=== PATIENT | female | born 1940 | race Caucasian/White ===

== ENCOUNTER 2016-08-09 16:56 | Inpatient (IN) | payer MEDICARE, OTHER ==
[~2016-08-09] VITALS: Ht 167.6 cm; Wt 110.5 kg
[~2016-08-09 16:56] MED LIST: CLOP75 PO; DIAZ5TAB4 PO; DIPH25 PO; DULO60CA63 PO; FURO20TA4 PO; METO25 PO; OMEP20CA10 PO; QUET25TA PO; ROPI1TAB11 PO
[2016-08-09] MEDS ORDERED: HYDR-309 PO (18:25)
[2016-08-09] MEDS ORDERED: DULO60CA44 PO (18:29)
[2016-08-09] MEDS ORDERED: LORA10TA7 PO (18:29)
[2016-08-09] MEDS ORDERED: GABA-529 PO (18:29)
[2016-08-09] MEDS ORDERED: FLUT100B IH (18:29)
[2016-08-09] MEDS ORDERED: QUET300T2 PO (18:45)
[2016-08-09] MEDS ORDERED: MAGNESIUM CITRATE 300 ML ORAL SOLUTION PO ONE (18:45)
[2016-08-09 19:02] LABS: BASOPHILS % (AUTO) 0.2 % (0.0-2.0); EOSINOPHILS % (AUTO) 2.3 % (1.0-6.0); HEMATOCRIT 38.2 % (36-46); HEMOGLOBIN 12.3 g/dL (12.0-16.0); LYMPHOCYTES # (AUTO) 2.4 K/uL (1.0-4.8); LYMPHOCYTES % (AUTO) 22.4 % (22.0-44.0); MEAN CORPUSCULAR HEMOGLOBIN 33.6 pg (26.0-34.0); MEAN CORPUSCULAR HGB CONC 32.1 G/dL (31.0-37.0); MEAN CORPUSCULAR VOLUME 105 fL (80-100); MONOCYTES # (AUTO) 0.4 K/uL (0.1-1.0); MONOCYTES % (AUTO) 3.8 % (2.0-9.0); NEUTROPHILS # (AUTO) 7.6 K/uL (1.8-7.7); NEUTROPHILS % (AUTO) 71.3 % (40.0-70.0); PLATELET COUNT (AUTO) 181 K/uL (150-450); RED BLOOD CELL COUNT(AUTO) 3.66 MIL/uL (4.00-5.20); RED CELL DISTRIBUTION WIDTH 14.6 % (11.5-14.5); WHITE BLOOD COUNT (AUTO) 10.7 K/uL (4.5-11.0)
[2016-08-09 19:15] LABS: CALCIUM, TOTAL 8.8 mg/dL (8.8-10.5); CREATININE 3.95 mg/dL (0.60-1.30); POTASSIUM 4.5 mmol/L (3.5-5.1)
[2016-08-09 19:20] LABS: ALBUMIN 3.4 g/dL (3.4-5.0); BILIRUBIN,TOTAL 0.3 mg/dL (0.1-1.0); TOTAL PROTEIN, SERUM 7.6 g/dL (6.4-8.2)
[2016-08-09 19:25] LABS: LACTIC ACID 1.2 mmol/L (0.4-2.0)
[2016-08-09 19:29] LABS: INFLUENZA TYPE B NEGATIVE FOR TYPE B (NEGATIVE)
[2016-08-09] MEDS ORDERED: ONDANSETRON HCL 4 MG/2 ML VIAL IVP PRN (19:30)
[2016-08-09] MEDS ORDERED: 0.9% SODIUM CHLORIDE 10 ML SYRINGE IVP PRN (19:30)
[2016-08-09] MEDS ORDERED: ACETAMINOPHEN 325 MG TABLET PO PRN (19:30)
[2016-08-09 19:32] LABS: RBC MORPHOLOGY COMMENT ABNORMAL RBC MORPH
[2016-08-09] MEDS ORDERED: SODIUM CHLORIDE 0.9% 2,000 ML IV ONE (20:00)
[2016-08-09 20:51] LABS: GLUCOSE,POINT OF CARE 157 MG/DL (70-110)
[2016-08-09 21:37] VITALS: BP 116/73
[2016-08-09 23:29] VITALS: BP 108/58
[2016-08-10 04:42] VITALS: BP 116/66
[2016-08-10] MEDS ORDERED: INFLUENZA VIRUS VACCINE QVS 2016-17 (3YR+)/PF 60 MCG/0.5 ML SYRINGE IM ONE (06:00)
[2016-08-10] MEDS ORDERED: -PHARMACY VACCINE NOTE- MISC ONE ×2 (06:00)
[2016-08-10 07:22] VITALS: BP 123/64
[2016-08-10] MEDS: NYSTATIN 15 GM POWDER BOTTLE TP SCH ×3 (09:06→21:34)
[2016-08-10] MEDS: FLUTICASONE FUROATE 100 MCG/INH INHALER [14] IH SCH (09:30)
[2016-08-10] MEDS ORDERED: ROPINIRole HCL 1 MG TABLET PO SCH (09:30)
[2016-08-10] MEDS ORDERED: DIAZEPAM 5 MG TABLET PO SCH (09:30)
[2016-08-10] MEDS ORDERED: DiphenhydrAMINE HCL 25 MG CAPSULE PO SCH (09:30)
[2016-08-10] MEDS ORDERED: LORATADINE 10 MG TABLET PO SCH (09:30)
[2016-08-10] MEDS ORDERED: FUROSEMIDE 20 MG TABLET PO SCH (09:30)
[2016-08-10] MEDS ORDERED: QUEtiapine FUMARATE 300 MG TABLET PO SCH (09:30)
[2016-08-10] MEDS ORDERED: ONDANSETRON HCL 4 MG/2 ML VIAL IVP PRN (09:45)
[2016-08-10] MEDS ORDERED: 0.9% SODIUM CHLORIDE 10 ML SYRINGE IVP PRN (09:45)
[2016-08-10] MEDS ORDERED: MAGNESIUM CITRATE 300 ML ORAL SOLUTION PO ONE (09:45)
[2016-08-10] MEDS: DULoxetine HCL 60 MG CAPSULE PO SCH (10:40)
[2016-08-10] MEDS: DOCUSATE SODIUM 100 MG CAPSULE PO SCH ×2 (10:40→21:33)
[2016-08-10] MEDS: CLOPIDOGREL BISULFATE 75 MG TABLET PO SCH (10:41)
[2016-08-10] MEDS: HYDROCODONE/ACETAMINOPHEN 5-325 MG TABLET PO SCH ×2 (10:42→21:34)
[2016-08-10] MEDS: METOPROLOL TARTRATE 25 MG TABLET PO SCH (10:42)
[2016-08-10] MEDS: PANTOPRAZOLE SODIUM 40 MG/VIAL IVP SCH (10:43)
[2016-08-10 12:28] VITALS: BP 127/64
[2016-08-10] MEDS ORDERED: SODIUM CHLORIDE 0.9% 1,000 ML IV ONE (13:45)
[2016-08-10] MEDS ORDERED: GABAPENTIN 100 MG CAPSULE PO SCH (16:00)
[2016-08-10 16:09] VITALS: BP 91/59
[2016-08-10] MEDS: DEXTROSE 5%-0.45% SODIUM CHL 1,000 ML IV SCH (17:26)
[2016-08-10 19:10] LABS: APPEARANCE,URINE TURBID (CLEAR); GLUCOSE, URINE (UA) NEGATIVE (NEGATIVE); KETONES,URINE NEGATIVE (NEGATIVE); LEUKOCYTE ESTERASE ,URINE LARGE (NEGATIVE); OCCULT BLOOD,URINE MODERATE (NEGATIVE); PROTEIN,URINE POS 1+ (NEGATIVE)
[2016-08-10 19:13] LABS: ADD UA MICROSCOPIC YES
[2016-08-10 19:26] LABS: SQUAMOUS EPITHELIAL CELL,UR Moderate /LPF (None Seen)
[2016-08-10 19:35] LABS: TRANSITIONAL EPI CELLS,URINE Moderate /LPF (None Seen)
[2016-08-10 19:36] LABS: WBC,URINE >100 /HPF (0-5)
[2016-08-10 21:07] VITALS: BP 104/63
[2016-08-10] MEDS: HEPARIN SODIUM,PORCINE 5,000 UNITS/ML VIAL SQ SCH (21:32)
[2016-08-11 00:07] VITALS: BP 109/65
[2016-08-11 04:30] VITALS: BP 113/65
[2016-08-11 05:41] LABS: BASOPHILS % (AUTO) 0.5 % (0.0-2.0); EOSINOPHILS % (AUTO) 6.1 % (1.0-6.0); HEMATOCRIT 35.3 % (36-46); HEMOGLOBIN 11.3 g/dL (12.0-16.0); LYMPHOCYTES # (AUTO) 2.8 K/uL (1.0-4.8); LYMPHOCYTES % (AUTO) 35.3 % (22.0-44.0); MEAN CORPUSCULAR HEMOGLOBIN 33.8 pg (26.0-34.0); MEAN CORPUSCULAR VOLUME 106 fL (80-100); MONOCYTES # (AUTO) 0.5 K/uL (0.1-1.0); MONOCYTES % (AUTO) 5.8 % (2.0-9.0); NEUTROPHILS # (AUTO) 4.1 K/uL (1.8-7.7); NEUTROPHILS % (AUTO) 52.3 % (40.0-70.0); PLATELET COUNT (AUTO) 163 K/uL (150-450); RED BLOOD CELL COUNT(AUTO) 3.34 MIL/uL (4.00-5.20); RED CELL DISTRIBUTION WIDTH 13.9 % (11.5-14.5); WHITE BLOOD COUNT (AUTO) 7.9 K/uL (4.5-11.0)
[2016-08-11 05:54] LABS: CALCIUM, TOTAL 8.3 mg/dL (8.8-10.5); CREATININE 2.62 mg/dL (0.60-1.30); MAGNESIUM 2.3 mg/dL (1.80-2.40)
[2016-08-11 08:20] VITALS: BP 119/64
[2016-08-11] MEDS: FLUTICASONE FUROATE 100 MCG/INH INHALER [14] IH SCH (08:52)
[2016-08-11] MEDS: HYDROCODONE/ACETAMINOPHEN 5-325 MG TABLET PO SCH ×2 (08:53→20:39)
[2016-08-11] MEDS: NYSTATIN 15 GM POWDER BOTTLE TP SCH ×3 (08:53→20:40)
[2016-08-11] MEDS: HEPARIN SODIUM,PORCINE 5,000 UNITS/ML VIAL SQ SCH ×2 (08:53→20:40)
[2016-08-11] MEDS: CLOPIDOGREL BISULFATE 75 MG TABLET PO SCH (08:53)
[2016-08-11] MEDS: DULoxetine HCL 60 MG CAPSULE PO SCH (08:53)
[2016-08-11] MEDS: DOCUSATE SODIUM 100 MG CAPSULE PO SCH ×2 (08:54→20:39)
[2016-08-11] MEDS: PANTOPRAZOLE SODIUM 40 MG/VIAL IVP SCH (08:54)
[2016-08-11] MEDS: METOPROLOL TARTRATE 25 MG TABLET PO SCH (08:54)
[2016-08-11 11:32] VITALS: BP 114/53
[2016-08-11 12:36] LABS: RBC MORPHOLOGY COMMENT ABNORMAL RBC MORPH
[2016-08-11] MEDS: DEXTROSE 5%-0.45% SODIUM CHL 1,000 ML IV SCH (13:07)
[2016-08-11] MEDS: CefTRIAXone 1 GM/DEXTROSE 50 ML IV SCH (14:06)
[2016-08-11 16:08] VITALS: BP 98/65
[2016-08-11 20:48] VITALS: BP 101/57
[2016-08-11] MEDS ORDERED: QUEtiapine FUMARATE 100 MG TABLET PO SCH (21:00)
[2016-08-12 00:15] VITALS: BP 113/69
[2016-08-12] MEDS: DEXTROSE 5%-0.45% SODIUM CHL 1,000 ML IV SCH (05:00)
[2016-08-12 05:33] VITALS: BP 139/78
[2016-08-12 07:43] LABS: CALCIUM, TOTAL 8.6 mg/dL (8.8-10.5); CREATININE 1.92 mg/dL (0.60-1.30); MAGNESIUM 2.3 mg/dL (1.80-2.40); POTASSIUM 3.6 mmol/L (3.5-5.1)
[2016-08-12 08:36] VITALS: BP 115/74
[2016-08-12] MEDS: DOCUSATE SODIUM 100 MG CAPSULE PO SCH (08:37)
[2016-08-12] MEDS: DULoxetine HCL 60 MG CAPSULE PO SCH (08:37)
[2016-08-12] MEDS: HYDROCODONE/ACETAMINOPHEN 5-325 MG TABLET PO SCH (08:37)
[2016-08-12] MEDS: METOPROLOL TARTRATE 25 MG TABLET PO SCH (08:37)
[2016-08-12] MEDS: CLOPIDOGREL BISULFATE 75 MG TABLET PO SCH (08:37)
[2016-08-12] MEDS: HEPARIN SODIUM,PORCINE 5,000 UNITS/ML VIAL SQ SCH (08:38)
[2016-08-12] MEDS: FLUTICASONE FUROATE 100 MCG/INH INHALER [14] IH SCH (08:38)
[2016-08-12] MEDS: PANTOPRAZOLE SODIUM 40 MG/VIAL IVP SCH (08:38)
[2016-08-12] MEDS: NYSTATIN 15 GM POWDER BOTTLE TP SCH (08:39)
[2016-08-12 11:41] VITALS: BP 138/73
[2016-08-12] MEDS ORDERED: DSS100 PO (12:28)
[2016-08-12] MEDS ORDERED: HEPA500017 SQ (12:29)
[2016-08-12] MEDS ORDERED: NYST1POW9 TP (12:31)
[2016-08-12] MEDS ORDERED: PANT40TA25 PO (12:32)
[2016-08-12] MEDS: CefTRIAXone 1 GM/DEXTROSE 50 ML IV SCH (14:38)
[2016-08-12 16:05] VITALS: BP 137/79
== END 2016-08-12 16:05 | DRG 682 ==
LOC: EMS 16:58 → 6N 19:42
PROVIDERS: ADMIT Internal Medicine; ATTEND Internal Medicine
PROC: 3E0234Z Introduction of Serum, Toxoid and Vaccine into Muscle, Percutaneous Approach (ICD-10-PCS; principal; 2016-08-12)
DX: N17.9 Acute kidney failure, unspecified (principal); G92 Toxic encephalopathy; E44.0 Moderate protein-calorie malnutrition; N39.0 Urinary tract infection, site not specified; J44.0 Chronic obstructive pulmonary disease with (acute) lower respiratory infection; E86.0 Dehydration; K21.9 Gastro-esophageal reflux disease without esophagitis; I25.10 Atherosclerotic heart disease of native coronary artery without angina pectoris; K59.00 Constipation, unspecified; N18.3 Chronic kidney disease, stage 3 (moderate); G89.29 Other chronic pain; E66.01 Morbid (severe) obesity due to excess calories; F03.90 Unspecified dementia, unspecified severity, without behavioral disturbance, psychotic disturbance, mood disturbance, and anxiety; R53.81 Other malaise; F32.9 Major depressive disorder, single episode, unspecified; I13.10 Hypertensive heart and chronic kidney disease without heart failure, with stage 1 through stage 4 chronic kidney disease, or unspecified chronic kidney disease; E05.90 Thyrotoxicosis, unspecified without thyrotoxic crisis or storm; R62.7 Adult failure to thrive; J20.9 Acute bronchitis, unspecified; F41.9 Anxiety disorder, unspecified; B96.20 Unspecified Escherichia coli [E. coli] as the cause of diseases classified elsewhere; Z68.39 Body mass index [BMI] 39.0-39.9, adult; Z88.8 Allergy status to other drugs, medicaments and biological substances; Z88.5 Allergy status to narcotic agent; Z79.899 Other long term (current) drug therapy; Z79.02 Long term (current) use of antithrombotics/antiplatelets; Z86.73 Personal history of transient ischemic attack (TIA), and cerebral infarction without residual deficits; Z87.891 Personal history of nicotine dependence; Z23 Encounter for immunization
CPT/HCPCS: 70450; 76770; 82570; 82962; 83605; 83735; 84100; 84300; 84540; 87086; 87804; 89050; 90471; 93005; 96374; 97110; 97163; 97166; 97530; 97535; 99285; C9113; J0696; J1644; J7030

== ENCOUNTER 2016-11-17 19:20 | Inpatient (IN) | payer MEDICARE, OTHER ==
[~2016-11-17] VITALS: Ht 165.1 cm; Wt 108.1 kg
[~2016-11-17 19:20] MED LIST changes: +DSS100 PO; +DULO60CA44 PO; -DULO60CA63 PO; +FLUT100B IH; +GABA-529 PO; +HEPA500017 SQ; +HYDR-309 PO; +LORA10TA7 PO; +NYST1POW9 TP; +PANT40TA25 PO; -QUET25TA PO; +QUET300T2 PO
[2016-11-17] MEDS ORDERED: FLUT220HFA IH (19:42)
[2016-11-17] MEDS ORDERED: ATOR40TA28 PO (19:42)
[2016-11-17] MEDS ORDERED: ASCO500C6 PO (19:42)
[2016-11-17] MEDS ORDERED: QUET25TA PO (19:42)
[2016-11-17] MEDS ORDERED: LORA0.5T2 PO (19:42)
[2016-11-17] MEDS ORDERED: FAMO20 PO (19:42)
[2016-11-17] MEDS ORDERED: DULO20CA30 PO (19:42)
[2016-11-17] MEDS ORDERED: GABA-529 PO (19:42)
[2016-11-17] MEDS ORDERED: METO25 PO (19:42)
[2016-11-17] MEDS ORDERED: OMEP20 PO (19:42)
[2016-11-17] MEDS ORDERED: ONDA4 PO (19:42)
[2016-11-17] MEDS ORDERED: FERR-89 PO (19:42)
[2016-11-17] MEDS ORDERED: LACT30L PO (19:42)
[2016-11-17 20:01] LABS: BASOPHILS % (AUTO) 0.1 % (0.0-2.0); EOSINOPHILS % (AUTO) 4.9 % (1.0-6.0); HEMATOCRIT 33.4 % (36-46); HEMOGLOBIN 10.6 g/dL (12.0-16.0); LYMPHOCYTES # (AUTO) 2.5 K/uL (1.0-4.8); LYMPHOCYTES % (AUTO) 28.1 % (22.0-44.0); MEAN CORPUSCULAR HEMOGLOBIN 33.4 pg (26.0-34.0); MEAN CORPUSCULAR HGB CONC 31.7 G/dL (31.0-37.0); MEAN CORPUSCULAR VOLUME 105 fL (80-100); MONOCYTES # (AUTO) 0.3 K/uL (0.1-1.0); MONOCYTES % (AUTO) 3.7 % (2.0-9.0); NEUTROPHILS # (AUTO) 5.7 K/uL (1.8-7.7); NEUTROPHILS % (AUTO) 63.2 % (40.0-70.0); PLATELET COUNT (AUTO) 261 K/uL (150-450); RED BLOOD CELL COUNT(AUTO) 3.17 MIL/uL (4.00-5.20); RED CELL DISTRIBUTION WIDTH 13.5 % (11.5-14.5)
[2016-11-17 20:12] LABS: GLUCOSE,POINT OF CARE 80 MG/DL (70-110)
[2016-11-17 20:15] LABS: ANION GAP 7 mmol/L (8-16); CALCIUM, TOTAL 8.4 mg/dL (8.8-10.5); CARBON DIOXIDE 24 mmol/L (22-29); CHLORIDE 113 mmol/L (98-107); CREATININE 2.33 mg/dL (0.60-1.30); GLOMERULAR FILTR. RATE CALC 20 mL/min (>60); POTASSIUM 5.7 mmol/L (3.5-5.1); SODIUM SERUM 144 mmol/L (136-145); UREA NITROGEN, BLOOD 40 mg/dL (7-18)
[2016-11-17 20:17] LABS: PROTHROMBIN TIME 10.8 SEC (9.4-11.6)
[2016-11-17 20:22] LABS: ALANINE AMINOTRANSFERASE 16 U/L (12-78); ALBUMIN 3.3 g/dL (3.4-5.0); ASPARTATE AMINOTRANSFERASE 13 U/L (15-37); BILIRUBIN,TOTAL 0.2 mg/dL (0.1-1.0); CREATINE KINASE, TOTAL 46 U/L (26-192); TOTAL PROTEIN, SERUM 7.2 g/dL (6.4-8.2)
[2016-11-17 20:24] LABS: TROPONIN I < 0.02 ng/mL (0.00-0.05)
[2016-11-17 20:32] LABS: AMMONIA 17 umol/L (11-32)
[2016-11-17 20:41] LABS: APPEARANCE,URINE TURBID (CLEAR); GLUCOSE, URINE (UA) NEGATIVE (NEGATIVE); KETONES,URINE NEGATIVE (NEGATIVE); LEUKOCYTE ESTERASE ,URINE MODERATE (NEGATIVE); OCCULT BLOOD,URINE NEGATIVE (NEGATIVE); PROTEIN,URINE NEGATIVE (NEGATIVE)
[2016-11-17 20:47] LABS: ADD UA MICROSCOPIC YES
[2016-11-17 20:48] LABS: RBC,URINE 0-2 /HPF (0-2); SQUAMOUS EPITHELIAL CELL,UR Moderate /LPF (None Seen)
[2016-11-17] MEDS ORDERED: PIPERACILLIN/TAZO 3.375 GM/D5W 50 ML IV ONE (21:15)
[2016-11-17] MEDS ORDERED: SODIUM CHLORIDE 0.9% 1,000 ML IV ONE (21:15)
[2016-11-17] MEDS: LEVOFLOXACIN 500 MG/D5% WATER 100 ML IV ONE ×2 (21:23→22:00)
[2016-11-17 21:49] LABS: RBC MORPHOLOGY COMMENT ABNORMAL RBC MORPH
[2016-11-18 00:35] VITALS: BP 105/65
[2016-11-18] MEDS ORDERED: SODIUM CHLORIDE 0.9% 1,000 ML IV SCH (03:45)
[2016-11-18] MEDS ORDERED: ONDANSETRON HCL 4 MG TABLET PO PRN (03:45)
[2016-11-18] MEDS ORDERED: MAGNESIUM HYDROXIDE SUSPENSION 30 ML UDCUP PO PRN (04:00)
[2016-11-18] MEDS ORDERED: 0.9% SODIUM CHLORIDE 10 ML SYRINGE IVP PRN (04:00)
[2016-11-18] MEDS ORDERED: ONDANSETRON HCL 4 MG/2 ML VIAL IVP PRN (04:00)
[2016-11-18] MEDS ORDERED: ACETAMINOPHEN 325 MG TABLET PO PRN (04:00)
[2016-11-18] MEDS: CefTRIAXone 1 GM/DEXTROSE 50 ML IV SCH (04:56)
[2016-11-18] MEDS: LACTULOSE 20 GM/30 ML SOLUTION UDCUP PO SCH ×4 (05:03→23:17)
[2016-11-18 05:47] VITALS: BP 101/58
[2016-11-18 07:40] VITALS: BP 116/76
[2016-11-18 08:12] LABS: CALCIUM, TOTAL 8.4 mg/dL (8.8-10.5); CREATININE 2.05 mg/dL (0.60-1.30); POTASSIUM 5.4 mmol/L (3.5-5.1)
[2016-11-18] MEDS ORDERED: DULoxetine HCL 20 MG CAPSULE PO SCH (09:00)
[2016-11-18] MEDS ORDERED: FUROSEMIDE 20 MG TABLET PO SCH (09:00)
[2016-11-18] MEDS ORDERED: GABAPENTIN 100 MG CAPSULE PO SCH ×2 (09:00)
[2016-11-18] MEDS ORDERED: DOCUSATE SODIUM 100 MG CAPSULE PO SCH (09:00)
[2016-11-18] MEDS ORDERED: LORazepam 0.5 MG TABLET PO SCH (09:00)
[2016-11-18] MEDS: DOCUSATE SODIUM 100 MG CAPSULE PO SCH ×2 (09:00→20:47)
[2016-11-18] MEDS ORDERED: ROPINIRole HCL 1 MG TABLET PO SCH (09:00)
[2016-11-18] MEDS: HEPARIN SODIUM,PORCINE 5,000 UNITS/ML VIAL SQ SCH ×2 (09:47→20:47)
[2016-11-18] MEDS: DEXTROSE 5%-WATER 1,000 ML IV SCH (10:52)
[2016-11-18] MEDS: ATORVASTATIN CALCIUM 40 MG TABLET PO SCH (10:53)
[2016-11-18] MEDS: FAMOTIDINE 20 MG TABLET PO SCH (10:53)
[2016-11-18] MEDS: ASCORBIC ACID 500 MG TABLET PO SCH ×2 (10:54→20:47)
[2016-11-18 10:57] VITALS: BP 120/58
[2016-11-18] MEDS: FERROUS SULFATE 325 MG EC TABLET PO SCH (10:59)
[2016-11-18 15:06] VITALS: BP 125/70
[2016-11-18] MEDS ORDERED: HALOPERIDOL 5 MG TABLET PO PRN (16:45)
[2016-11-18] MEDS ORDERED: HALOPERIDOL LACTATE 5 MG/ML VIAL IM PRN (16:45)
[2016-11-18 19:55] VITALS: BP 123/52
[2016-11-18] MEDS: DULoxetine HCL 30 MG CAPSULE PO SCH (20:47)
[2016-11-18] MEDS ORDERED: QUEtiapine FUMARATE 25 MG TABLET PO SCH (21:00)
[2016-11-19 00:49] VITALS: BP 116/56
[2016-11-19] MEDS ORDERED: DIAZEPAM 2 MG TABLET PO ONE (01:30)
[2016-11-19] MEDS ORDERED: DIAZEPAM 2 MG TABLET PO PRN (01:45)
[2016-11-19 05:27] VITALS: BP 114/49
[2016-11-19] MEDS: CefTRIAXone 1 GM/DEXTROSE 50 ML IV SCH (05:30)
[2016-11-19] MEDS: DEXTROSE 5%-WATER 1,000 ML IV SCH (05:30)
[2016-11-19] MEDS: LACTULOSE 20 GM/30 ML SOLUTION UDCUP PO SCH ×2 (05:33→12:00)
[2016-11-19 07:11] LABS: BASOPHILS # (AUTO) 0.04 K/uL (0.00-0.20); BASOPHILS % (AUTO) 0.5 % (0.0-2.0); EOSINOPHILS # (AUTO) 0.43 K/uL (0.00-0.70); EOSINOPHILS % (AUTO) 5.94 % (1.0-6.0); HEMATOCRIT 29.2 % (36-46); HEMOGLOBIN 9.5 g/dL (12.0-16.0); LYMPHOCYTES % (AUTO) 41.1 % (22.0-44.0); MEAN CORPUSCULAR HEMOGLOBIN 33.9 pg (26.0-34.0); MEAN CORPUSCULAR HGB CONC 32.7 G/dL (31.0-37.0); MEAN CORPUSCULAR VOLUME 104 fL (80-100); MONOCYTES # (AUTO) 0.6 K/uL (0.1-1.0); MONOCYTES % (AUTO) 7.6 % (2.0-9.0); NEUTROPHILS # (AUTO) 3.2 K/uL (1.8-7.7); NEUTROPHILS % (AUTO) 44.9 % (40.0-70.0); PLATELET COUNT (AUTO) 238 K/uL (150-450); RED BLOOD CELL COUNT(AUTO) 2.81 MIL/uL (4.00-5.20); RED CELL DISTRIBUTION WIDTH 13.3 % (11.5-14.5); WHITE BLOOD COUNT (AUTO) 7.2 K/uL (4.5-11.0)
[2016-11-19 07:22] LABS: RBC MORPHOLOGY COMMENT ABNORMAL RBC MORPH
[2016-11-19 07:30] LABS: CALCIUM, TOTAL 8.4 mg/dL (8.8-10.5); CREATININE 1.91 mg/dL (0.60-1.30); MAGNESIUM 1.7 mg/dL (1.80-2.40); PHOSPHORUS 3.3 mg/dL (2.5-4.9); POTASSIUM 5.1 mmol/L (3.5-5.1)
[2016-11-19 07:42] VITALS: BP 128/66
[2016-11-19] MEDS: FERROUS SULFATE 325 MG EC TABLET PO SCH (08:13)
[2016-11-19] MEDS: FAMOTIDINE 20 MG TABLET PO SCH (08:14)
[2016-11-19] MEDS: ATORVASTATIN CALCIUM 40 MG TABLET PO SCH (08:14)
[2016-11-19] MEDS: DULoxetine HCL 30 MG CAPSULE PO SCH (08:14)
[2016-11-19] MEDS: ASCORBIC ACID 500 MG TABLET PO SCH (08:14)
[2016-11-19] MEDS: DOCUSATE SODIUM 100 MG CAPSULE PO SCH (08:14)
[2016-11-19] MEDS: HEPARIN SODIUM,PORCINE 5,000 UNITS/ML VIAL SQ SCH (08:15)
[2016-11-19] MEDS ORDERED: LORazepam 0.5 MG TABLET PO ONE (09:00)
[2016-11-19 11:43] VITALS: BP 115/64
[2016-11-19 15:23] VITALS: BP 83/94
[2016-11-19] MEDS ORDERED: LEVO500 PO ×2 (15:50→15:53)
[2016-11-19] MEDS ORDERED: DULO30CA2 PO (15:51)
[2016-11-19] MEDS ORDERED: FURO-152 PO (16:01)
[2016-11-19 19:29] VITALS: BP 107/59
== END 2016-11-19 20:00 | disposition home or self-care (01) | DRG 871 ==
LOC: EMS 19:25 → 5S 23:18
PROVIDERS: ADMIT Internal Medicine; ATTEND Internal Medicine
DX: A41.9 Sepsis, unspecified organism (principal); G93.41 Metabolic encephalopathy; N17.9 Acute kidney failure, unspecified; N39.0 Urinary tract infection, site not specified; E44.0 Moderate protein-calorie malnutrition; E87.0 Hyperosmolality and hypernatremia; R47.01 Aphasia; F05 Delirium due to known physiological condition; E87.5 Hyperkalemia; E66.01 Morbid (severe) obesity due to excess calories; N18.9 Chronic kidney disease, unspecified; E78.00 Pure hypercholesterolemia, unspecified; I25.10 Atherosclerotic heart disease of native coronary artery without angina pectoris; E03.9 Hypothyroidism, unspecified; F02.80 Dementia in other diseases classified elsewhere, unspecified severity, without behavioral disturbance, psychotic disturbance, mood disturbance, and anxiety; F40.240 Claustrophobia; R31.9 Hematuria, unspecified; K21.9 Gastro-esophageal reflux disease without esophagitis; Z95.5 Presence of coronary angioplasty implant and graft; J44.9 Chronic obstructive pulmonary disease, unspecified; E78.5 Hyperlipidemia, unspecified; E87.6 Hypokalemia; F17.210 Nicotine dependence, cigarettes, uncomplicated; F32.9 Major depressive disorder, single episode, unspecified; R00.1 Bradycardia, unspecified; I13.10 Hypertensive heart and chronic kidney disease without heart failure, with stage 1 through stage 4 chronic kidney disease, or unspecified chronic kidney disease; G30.9 Alzheimer's disease, unspecified; Z88.6 Allergy status to analgesic agent; Z88.5 Allergy status to narcotic agent; Z87.440 Personal history of urinary (tract) infections; Z86.73 Personal history of transient ischemic attack (TIA), and cerebral infarction without residual deficits; Z68.39 Body mass index [BMI] 39.0-39.9, adult; Z79.899 Other long term (current) drug therapy
CPT/HCPCS: 51702; 70450; 70544; 70551; 76770; 82570; 82962; 83605; 83735; 84100; 84300; 84540; 87040; 87086; 87147; 92526; 92610; 93005; 96365; 96367; 99285; J0696; J1644; J1956; J2543; J7030; J7060

== ENCOUNTER 2017-05-11 17:17 | Inpatient (IN) | payer MEDICARE, MEDICAID ==
[~2017-05-11] VITALS: Ht 167.6 cm; Wt 108.4 kg
[2017-05-11 15:41] VITALS: BP 116/68
[~2017-05-11 17:17] MED LIST changes: +-PHARMACY VACCINE NOTE- MISC ONE; +ASCO500C6 PO; +ATOR20TA86 PO; +ATOR40TA28 PO; +DIAZ5 PO; -DIAZ5TAB4 PO; -DIPH25 PO; +DULO30CA2 PO; +FAMO20 PO; +FERR-89 PO; -FLUT100B IH; +FLUT16H NASAL; +FLUT220HFA IH; +FURO-152 PO; +FURO20 PO; -FURO20TA4 PO; +HALOPERIDOL 5 MG TABLET PO PRN; -HEPA500017 SQ; -HYDR-309 PO; +INFLUENZA VIRUS VACCINE QVS 2017-18 (3YR+)/PF 60 MCG/0.5 ML SYRINGE IM ONE; +KDUR20 PO; +LEVO500 PO; +LISI-661 PO; -METO25 PO; +OMEP20 PO; -OMEP20CA10 PO; -PANT40TA25 PO; +QUET25TA PO; -QUET300T2 PO; +RISP.5 PO; -ROPI1TAB11 PO; +TRAZ-144 PO; +ZOLPIDEM TARTRATE 10 MG TABLET PO PRN
[2017-05-11] MEDS ORDERED: SODIUM CHLORIDE 0.9% 500 ML IV ONE ×2 (18:00→18:35)
[2017-05-11] MEDS ORDERED: MECLIZINE HCL 25 MG TABLET PO ONE ×2 (18:00→19:30)
[2017-05-11 18:23] LABS: BASOPHILS # (AUTO) 0.09 K/uL (0.00-0.20); BASOPHILS % (AUTO) 0.8 % (0.0-2.0); EOSINOPHILS # (AUTO) 0.14 K/uL (0.00-0.70); EOSINOPHILS % (AUTO) 1.21 % (1.0-6.0); HEMATOCRIT 32.8 % (36-46); HEMOGLOBIN 10.9 g/dL (12.0-16.0); LYMPHOCYTES # (AUTO) 3.6 K/uL (1.0-4.8); LYMPHOCYTES % (AUTO) 30.6 % (22.0-44.0); MEAN CORPUSCULAR HEMOGLOBIN 32.7 pg (26.0-34.0); MEAN CORPUSCULAR HGB CONC 33.4 G/dL (31.0-37.0); MEAN CORPUSCULAR VOLUME 98 fL (80-100); MONOCYTES # (AUTO) 0.7 K/uL (0.1-1.0); MONOCYTES % (AUTO) 5.5 % (2.0-9.0); NEUTROPHILS # (AUTO) 7.3 K/uL (1.8-7.7); NEUTROPHILS % (AUTO) 61.9 % (40.0-70.0); PLATELET COUNT (AUTO) 223 K/uL (150-450); RED BLOOD CELL COUNT(AUTO) 3.35 MIL/uL (4.00-5.20); RED CELL DISTRIBUTION WIDTH 15.9 % (11.5-14.5); WHITE BLOOD COUNT (AUTO) 11.7 K/uL (4.5-11.0)
[2017-05-11 18:28] LABS: CALCIUM, TOTAL 9.3 mg/dL (8.8-10.5); CREATININE 1.97 mg/dL (0.60-1.30); POTASSIUM 3.6 mmol/L (3.5-5.1)
[2017-05-11 18:33] LABS: PROTHROMBIN TIME 10.7 SEC (9.4-11.6)
[2017-05-11 18:34] LABS: ALBUMIN 3.6 g/dL (3.4-5.0); BILIRUBIN,TOTAL 0.3 mg/dL (0.1-1.0); TOTAL PROTEIN, SERUM 7.3 g/dL (6.4-8.2)
[2017-05-11] MEDS: LORazepam 2 MG TABLET PO PRN (19:48)
[2017-05-11] MEDS ORDERED: LORazepam 1 MG TABLET PO ONE (20:15)
[2017-05-11] MEDS: QUEtiapine FUMARATE 25 MG TABLET PO SCH (23:30)
[2017-05-12 00:01] VITALS: BP 119/75
[2017-05-12] MEDS: DULoxetine HCL 60 MG CAPSULE PO SCH (08:43)
[2017-05-12 09:10] VITALS: BP 126/58
[2017-05-12 09:20] VITALS: BP 140/76
[2017-05-12] MEDS: LORazepam 2 MG TABLET PO PRN ×2 (09:33→16:30)
[2017-05-12] MEDS: GABAPENTIN 300 MG CAPSULE PO SCH ×2 (14:24→16:30)
[2017-05-12 16:12] VITALS: BP 137/82
[2017-05-12] MEDS: RisperiDONE 0.5 MG TABLET PO SCH (16:29)
[2017-05-12] MEDS: NYSTATIN 30 GM CREAM TP SCH (16:29)
[2017-05-12] MEDS: DOCUSATE SODIUM 100 MG CAPSULE PO SCH (17:01)
[2017-05-12] MEDS: QUEtiapine FUMARATE 25 MG TABLET PO SCH (20:14)
[2017-05-12] MEDS: MECLIZINE HCL 25 MG TABLET PO PRN (20:14)
[2017-05-12] MEDS ORDERED: TraZODone HCL 50 MG TABLET PO SCH (21:00)
[2017-05-13] MEDS: FERROUS SULFATE 325 MG EC TABLET PO SCH (06:38)
[2017-05-13 07:02] VITALS: BP 124/70
[2017-05-13] MEDS: LISINOPRIL 10 MG TABLET PO SCH (09:00)
[2017-05-13 09:02] VITALS: BP 100/59
[2017-05-13] MEDS: FLUTICASONE PROPIONATE 50 MCG/SPRAY 16 GM NASAL SPRAY NASAL SCH (09:07)
[2017-05-13] MEDS: ATORVASTATIN CALCIUM 20 MG TABLET PO SCH (09:08)
[2017-05-13] MEDS: GABAPENTIN 300 MG CAPSULE PO SCH ×3 (09:08→16:00)
[2017-05-13] MEDS: RisperiDONE 0.5 MG TABLET PO SCH (09:08)
[2017-05-13] MEDS: DOCUSATE SODIUM 100 MG CAPSULE PO SCH ×2 (09:08→17:00)
[2017-05-13] MEDS: NYSTATIN 30 GM CREAM TP SCH ×2 (09:08→16:00)
[2017-05-13] MEDS: DULoxetine HCL 60 MG CAPSULE PO SCH (09:08)
[2017-05-13] MEDS: CLOPIDOGREL BISULFATE 75 MG TABLET PO SCH (09:08)
[2017-05-13] MEDS: FAMOTIDINE 20 MG TABLET PO SCH (09:09)
[2017-05-13] MEDS: PANTOPRAZOLE SODIUM 40 MG DR TABLET PO SCH (09:09)
[2017-05-13 09:25] LABS: HEMOGLOBIN A1C 5.1 % (4.5-6.2)
[2017-05-13 09:52] LABS: CHOL/HDL RATIO 2.9 (3.9-5.7); CREATINE KINASE MB 1.5 ng/mL (0-5); CREATINE KINASE, TOTAL 147 U/L (26-192)
[2017-05-13 10:06] LABS: URIC ACID 6.3 mg/dL (2.6-7.2)
[2017-05-13] MEDS: MECLIZINE HCL 25 MG TABLET PO PRN (11:10)
[2017-05-13] MEDS: LORazepam 2 MG TABLET PO PRN ×2 (15:57→19:57)
[2017-05-13 16:41] VITALS: BP 136/77
[2017-05-13] MEDS: QUEtiapine FUMARATE 100 MG TABLET PO SCH (20:01)
[2017-05-14] MEDS: FERROUS SULFATE 325 MG EC TABLET PO SCH (06:56)
[2017-05-14 06:58] VITALS: BP 124/73
[2017-05-14 08:24] VITALS: BP 125/64
[2017-05-14] MEDS: GABAPENTIN 300 MG CAPSULE PO SCH ×3 (09:11→16:20)
[2017-05-14] MEDS: ATORVASTATIN CALCIUM 20 MG TABLET PO SCH (09:12)
[2017-05-14] MEDS: PANTOPRAZOLE SODIUM 40 MG DR TABLET PO SCH (09:12)
[2017-05-14] MEDS: CLOPIDOGREL BISULFATE 75 MG TABLET PO SCH (09:12)
[2017-05-14] MEDS: FAMOTIDINE 20 MG TABLET PO SCH (09:12)
[2017-05-14] MEDS: DOCUSATE SODIUM 100 MG CAPSULE PO SCH ×2 (09:12→16:23)
[2017-05-14] MEDS: FUROSEMIDE 20 MG TABLET PO SCH (09:12)
[2017-05-14] MEDS: LISINOPRIL 10 MG TABLET PO SCH (09:12)
[2017-05-14] MEDS: DULoxetine HCL 60 MG CAPSULE PO SCH (09:12)
[2017-05-14] MEDS: NYSTATIN 30 GM CREAM TP SCH ×2 (09:12→16:23)
[2017-05-14] MEDS: FLUTICASONE PROPIONATE 50 MCG/SPRAY 16 GM NASAL SPRAY NASAL SCH (09:13)
[2017-05-14] MEDS: MECLIZINE HCL 25 MG TABLET PO PRN (09:34)
[2017-05-14 11:11] VITALS: BP_SYST 135; BP_SYST 138; BP_DIAS 71; BP_DIAS 75
[2017-05-14] MEDS: LORazepam 2 MG TABLET PO PRN ×2 (11:14→18:48)
[2017-05-14 11:16] LABS: HEPATITIS Bs ANTIGEN SCREEN P Negative (Negative); HEPATITIS C AB SCREEN <0.1 s/co ratio (0.0-0.9)
[2017-05-14 16:06] VITALS: BP 112/62
[2017-05-14] MEDS: QUEtiapine FUMARATE 100 MG TABLET PO SCH (20:08)
[2017-05-15] MEDS: FERROUS SULFATE 325 MG EC TABLET PO SCH (06:35)
[2017-05-15 07:18] VITALS: BP 129/64
[2017-05-15] MEDS: GABAPENTIN 300 MG CAPSULE PO SCH ×3 (08:48→16:25)
[2017-05-15] MEDS: ATORVASTATIN CALCIUM 20 MG TABLET PO SCH (08:48)
[2017-05-15] MEDS: PANTOPRAZOLE SODIUM 40 MG DR TABLET PO SCH (08:48)
[2017-05-15] MEDS: DULoxetine HCL 60 MG CAPSULE PO SCH (08:48)
[2017-05-15] MEDS: DOCUSATE SODIUM 100 MG CAPSULE PO SCH ×2 (08:48→16:25)
[2017-05-15] MEDS: FLUTICASONE PROPIONATE 50 MCG/SPRAY 16 GM NASAL SPRAY NASAL SCH (08:49)
[2017-05-15] MEDS: CLOPIDOGREL BISULFATE 75 MG TABLET PO SCH (08:49)
[2017-05-15] MEDS: FAMOTIDINE 20 MG TABLET PO SCH (08:49)
[2017-05-15] MEDS: NYSTATIN 30 GM CREAM TP SCH ×2 (08:50→16:25)
[2017-05-15 09:10] VITALS: BP 121/74
[2017-05-15] MEDS: LISINOPRIL 10 MG TABLET PO SCH (09:15)
[2017-05-15 09:33] VITALS: BP 114/55
[2017-05-15] MEDS: LORazepam 2 MG TABLET PO PRN ×2 (13:36→20:36)
[2017-05-15 16:39] VITALS: BP 129/65
[2017-05-15] MEDS: QUEtiapine FUMARATE 100 MG TABLET PO SCH (20:11)
[2017-05-16] MEDS: FERROUS SULFATE 325 MG EC TABLET PO SCH (06:07)
[2017-05-16 06:14] VITALS: BP 108/57
[2017-05-16 08:15] VITALS: BP 116/70
[2017-05-16 08:25] LABS: BASOPHILS # (AUTO) 0.04 K/uL (0.00-0.20); BASOPHILS % (AUTO) 0.5 % (0.0-2.0); EOSINOPHILS # (AUTO) 0.43 K/uL (0.00-0.70); EOSINOPHILS % (AUTO) 4.58 % (1.0-6.0); HEMATOCRIT 32.1 % (36-46); HEMOGLOBIN 10.4 g/dL (12.0-16.0); LYMPHOCYTES # (AUTO) 3.1 K/uL (1.0-4.8); MEAN CORPUSCULAR HEMOGLOBIN 32.8 pg (26.0-34.0); MEAN CORPUSCULAR HGB CONC 32.5 G/dL (31.0-37.0); MEAN CORPUSCULAR VOLUME 101 fL (80-100); MONOCYTES # (AUTO) 0.6 K/uL (0.1-1.0); MONOCYTES % (AUTO) 5.9 % (2.0-9.0); NEUTROPHILS # (AUTO) 5.2 K/uL (1.8-7.7); PLATELET COUNT (AUTO) 201 K/uL (150-450); RED BLOOD CELL COUNT(AUTO) 3.18 MIL/uL (4.00-5.20); RED CELL DISTRIBUTION WIDTH 15.7 % (11.5-14.5); WHITE BLOOD COUNT (AUTO) 9.3 K/uL (4.5-11.0)
[2017-05-16] MEDS: CLOPIDOGREL BISULFATE 75 MG TABLET PO SCH (09:12)
[2017-05-16] MEDS: LISINOPRIL 10 MG TABLET PO SCH (09:12)
[2017-05-16] MEDS: FUROSEMIDE 20 MG TABLET PO SCH (09:12)
[2017-05-16] MEDS: FAMOTIDINE 20 MG TABLET PO SCH (09:12)
[2017-05-16] MEDS: GABAPENTIN 300 MG CAPSULE PO SCH ×3 (09:12→16:29)
[2017-05-16] MEDS: PANTOPRAZOLE SODIUM 40 MG DR TABLET PO SCH (09:12)
[2017-05-16] MEDS: NYSTATIN 30 GM CREAM TP SCH ×2 (09:13→16:30)
[2017-05-16] MEDS: ATORVASTATIN CALCIUM 20 MG TABLET PO SCH (09:13)
[2017-05-16] MEDS: DULoxetine HCL 60 MG CAPSULE PO SCH (09:13)
[2017-05-16] MEDS: DOCUSATE SODIUM 100 MG CAPSULE PO SCH ×2 (09:13→16:29)
[2017-05-16] MEDS: FLUTICASONE PROPIONATE 50 MCG/SPRAY 16 GM NASAL SPRAY NASAL SCH (09:13)
[2017-05-16 09:20] LABS: CREATINE KINASE, TOTAL 47 U/L (26-192)
[2017-05-16 10:02] LABS: RBC MORPHOLOGY COMMENT ABNORMAL RBC MORPH
[2017-05-16 16:29] VITALS: BP 135/76
[2017-05-16] MEDS: LORazepam 2 MG TABLET PO PRN ×2 (16:30→20:51)
[2017-05-16] MEDS: QUEtiapine FUMARATE 100 MG TABLET PO SCH (20:05)
[2017-05-17] MEDS: FERROUS SULFATE 325 MG EC TABLET PO SCH (06:21)
[2017-05-17 07:03] VITALS: BP 100/83
[2017-05-17 08:34] VITALS: BP 111/65
[2017-05-17] MEDS: FLUTICASONE PROPIONATE 50 MCG/SPRAY 16 GM NASAL SPRAY NASAL SCH (08:39)
[2017-05-17] MEDS: DOCUSATE SODIUM 100 MG CAPSULE PO SCH ×2 (08:39→16:18)
[2017-05-17] MEDS: NYSTATIN 30 GM CREAM TP SCH ×2 (08:40→16:19)
[2017-05-17] MEDS: DULoxetine HCL 60 MG CAPSULE PO SCH (08:40)
[2017-05-17] MEDS: ATORVASTATIN CALCIUM 20 MG TABLET PO SCH (08:40)
[2017-05-17] MEDS: FAMOTIDINE 20 MG TABLET PO SCH (08:40)
[2017-05-17] MEDS: CLOPIDOGREL BISULFATE 75 MG TABLET PO SCH (08:40)
[2017-05-17] MEDS: GABAPENTIN 300 MG CAPSULE PO SCH ×3 (08:40→16:18)
[2017-05-17] MEDS: PANTOPRAZOLE SODIUM 40 MG DR TABLET PO SCH (08:40)
[2017-05-17] MEDS: LISINOPRIL 10 MG TABLET PO SCH (08:40)
[2017-05-17] MEDS ORDERED: LACTULOSE 20 GM/30 ML SOLUTION UDCUP PO PRN (11:45)
[2017-05-17] MEDS: MECLIZINE HCL 25 MG TABLET PO PRN (14:45)
[2017-05-17 16:09] VITALS: BP 129/66
[2017-05-17] MEDS: LORazepam 2 MG TABLET PO PRN (16:19)
[2017-05-17] MEDS: QUEtiapine FUMARATE 100 MG TABLET PO SCH (20:55)
[2017-05-18] MEDS: FERROUS SULFATE 325 MG EC TABLET PO SCH (06:46)
[2017-05-18] MEDS: FUROSEMIDE 20 MG TABLET PO SCH (09:20)
[2017-05-18] MEDS: GABAPENTIN 300 MG CAPSULE PO SCH ×3 (09:20→16:20)
[2017-05-18] MEDS: CITALOPRAM HYDROBROMIDE 10 MG TABLET PO SCH (09:21)
[2017-05-18] MEDS: PANTOPRAZOLE SODIUM 40 MG DR TABLET PO SCH (09:21)
[2017-05-18] MEDS: FLUTICASONE PROPIONATE 50 MCG/SPRAY 16 GM NASAL SPRAY NASAL SCH (09:21)
[2017-05-18] MEDS: CLOPIDOGREL BISULFATE 75 MG TABLET PO SCH (09:21)
[2017-05-18] MEDS: FAMOTIDINE 20 MG TABLET PO SCH (09:21)
[2017-05-18] MEDS: LISINOPRIL 10 MG TABLET PO SCH (09:21)
[2017-05-18] MEDS: DOCUSATE SODIUM 100 MG CAPSULE PO SCH ×2 (09:21→16:20)
[2017-05-18] MEDS: DULoxetine HCL 60 MG CAPSULE PO SCH (09:22)
[2017-05-18] MEDS: ATORVASTATIN CALCIUM 20 MG TABLET PO SCH (09:23)
[2017-05-18] MEDS: NYSTATIN 30 GM CREAM TP SCH ×2 (09:24→16:20)
[2017-05-18 10:00] VITALS: BP 115/74
[2017-05-18] MEDS: LORazepam 2 MG TABLET PO PRN ×2 (16:20→20:27)
[2017-05-18 16:41] VITALS: BP 111/68
[2017-05-18] MEDS: MECLIZINE HCL 25 MG TABLET PO PRN ×2 (18:12→21:08)
[2017-05-18] MEDS: QUEtiapine FUMARATE 100 MG TABLET PO SCH (20:28)
[2017-05-19 06:45] VITALS: BP 117/75
[2017-05-19] MEDS: FERROUS SULFATE 325 MG EC TABLET PO SCH (06:50)
[2017-05-19 08:06] VITALS: BP 106/65
[2017-05-19] MEDS: FAMOTIDINE 20 MG TABLET PO SCH (08:29)
[2017-05-19] MEDS: LISINOPRIL 10 MG TABLET PO SCH (08:29)
[2017-05-19] MEDS: CLOPIDOGREL BISULFATE 75 MG TABLET PO SCH (08:29)
[2017-05-19] MEDS: PANTOPRAZOLE SODIUM 40 MG DR TABLET PO SCH (08:29)
[2017-05-19] MEDS: GABAPENTIN 300 MG CAPSULE PO SCH ×3 (08:29→16:50)
[2017-05-19] MEDS: CITALOPRAM HYDROBROMIDE 10 MG TABLET PO SCH (08:29)
[2017-05-19] MEDS: DULoxetine HCL 60 MG CAPSULE PO SCH (08:29)
[2017-05-19] MEDS: ATORVASTATIN CALCIUM 20 MG TABLET PO SCH (08:29)
[2017-05-19] MEDS: FLUTICASONE PROPIONATE 50 MCG/SPRAY 16 GM NASAL SPRAY NASAL SCH (08:30)
[2017-05-19] MEDS: NYSTATIN 30 GM CREAM TP SCH ×2 (08:30→16:51)
[2017-05-19] MEDS: DOCUSATE SODIUM 100 MG CAPSULE PO SCH ×2 (08:31→16:51)
[2017-05-19] MEDS: BACLOFEN 10 MG TABLET PO SCH ×2 (13:00→16:51)
[2017-05-19] MEDS: MECLIZINE HCL 25 MG TABLET PO PRN ×2 (16:50→20:51)
[2017-05-19] MEDS: LORazepam 2 MG TABLET PO PRN ×2 (16:50→20:51)
[2017-05-19 17:35] VITALS: BP 124/73
[2017-05-19] MEDS: QUEtiapine FUMARATE 100 MG TABLET PO SCH (20:51)
[2017-05-20 06:47] VITALS: BP 118/61
[2017-05-20] MEDS: FERROUS SULFATE 325 MG EC TABLET PO SCH (07:10)
[2017-05-20] MEDS: CLOPIDOGREL BISULFATE 75 MG TABLET PO SCH (08:20)
[2017-05-20] MEDS: FUROSEMIDE 20 MG TABLET PO SCH (08:20)
[2017-05-20] MEDS: FAMOTIDINE 20 MG TABLET PO SCH (08:20)
[2017-05-20] MEDS: ATORVASTATIN CALCIUM 20 MG TABLET PO SCH (08:20)
[2017-05-20] MEDS: CITALOPRAM HYDROBROMIDE 10 MG TABLET PO SCH (08:20)
[2017-05-20] MEDS: BACLOFEN 10 MG TABLET PO SCH ×2 (08:20→12:34)
[2017-05-20] MEDS: DOCUSATE SODIUM 100 MG CAPSULE PO SCH (08:20)
[2017-05-20] MEDS: DULoxetine HCL 60 MG CAPSULE PO SCH (08:20)
[2017-05-20] MEDS: NYSTATIN 30 GM CREAM TP SCH (08:20)
[2017-05-20] MEDS: LISINOPRIL 10 MG TABLET PO SCH (08:20)
[2017-05-20] MEDS: PANTOPRAZOLE SODIUM 40 MG DR TABLET PO SCH (08:20)
[2017-05-20] MEDS: GABAPENTIN 300 MG CAPSULE PO SCH ×2 (08:20→12:34)
[2017-05-20] MEDS: FLUTICASONE PROPIONATE 50 MCG/SPRAY 16 GM NASAL SPRAY NASAL SCH (08:20)
[2017-05-20] MEDS ORDERED: PANT40TA25 PO (09:35)
[2017-05-20] MEDS ORDERED: CITA10TA68 PO (09:35)
[2017-05-20] MEDS ORDERED: BACL10TA PO (09:38)
[2017-05-20] MEDS ORDERED: LACT30L PO (09:40)
[2017-05-20] MEDS ORDERED: NYST15PO3 TP (09:43)
[2017-05-20] MEDS ORDERED: MECL-111 PO (09:59)
[2017-05-20 12:39] VITALS: BP 122/76
== END 2017-05-20 13:15 | DRG 881 ==
LOC: EMS 17:19 → B2S 23:50
PROVIDERS: ADMIT Psychiatry & Neurology Psychiatry; ATTEND Psychiatry & Neurology Psychiatry
DX: F32.9 Major depressive disorder, single episode, unspecified (principal); I13.0 Hypertensive heart and chronic kidney disease with heart failure and stage 1 through stage 4 chronic kidney disease, or unspecified chronic kidney disease; I50.9 Heart failure, unspecified; I42.9 Cardiomyopathy, unspecified; J44.9 Chronic obstructive pulmonary disease, unspecified; E78.5 Hyperlipidemia, unspecified; I25.10 Atherosclerotic heart disease of native coronary artery without angina pectoris; K21.9 Gastro-esophageal reflux disease without esophagitis; K59.00 Constipation, unspecified; L30.9 Dermatitis, unspecified; N18.9 Chronic kidney disease, unspecified; Z79.899 Other long term (current) drug therapy; Z82.49 Family history of ischemic heart disease and other diseases of the circulatory system; Z86.73 Personal history of transient ischemic attack (TIA), and cerebral infarction without residual deficits; Z87.891 Personal history of nicotine dependence; R42 Dizziness and giddiness; D64.9 Anemia, unspecified; D72.829 Elevated white blood cell count, unspecified; E05.90 Thyrotoxicosis, unspecified without thyrotoxic crisis or storm; M54.9 Dorsalgia, unspecified; M62.838 Other muscle spasm; Z88.6 Allergy status to analgesic agent; Z88.8 Allergy status to other drugs, medicaments and biological substances
CPT/HCPCS: 70450; 80074; 82306; 82607; 82746; 83036; 83735; 84439; 84550; 93005; 99285; J7030; J7040

== ENCOUNTER 2017-12-19 08:36 | Emergency (ER) | payer MEDICARE, OTHER ==
[~2017-12-19] VITALS: Ht 167.6 cm; Wt 118.0 kg
[~2017-12-19 08:36] MED LIST changes: --PHARMACY VACCINE NOTE- MISC ONE; -ASCO500C6 PO; -ATOR40TA28 PO; +BACL10TA PO; +CITA10TA68 PO; -DIAZ5 PO; -DULO30CA2 PO; -FLUT220HFA IH; -FURO-152 PO; -HALOPERIDOL 5 MG TABLET PO PRN; -INFLUENZA VIRUS VACCINE QVS 2017-18 (3YR+)/PF 60 MCG/0.5 ML SYRINGE IM ONE; -KDUR20 PO; +LACT30L PO; -LEVO500 PO; -LORA10TA7 PO; +MECL-111 PO; +NYST15PO3 TP; -NYST1POW9 TP; -OMEP20 PO; +PANT40TA25 PO; -RISP.5 PO; -TRAZ-144 PO; -ZOLPIDEM TARTRATE 10 MG TABLET PO PRN
[2017-12-19 10:00] VITALS: BP 101/67
== END 2017-12-19 11:06 | disposition home or self-care (01) ==
LOC: EMS 08:39
DX: S60.222A Contusion of left hand, initial encounter (principal); J40 Bronchitis, not specified as acute or chronic; J02.9 Acute pharyngitis, unspecified; J44.9 Chronic obstructive pulmonary disease, unspecified; K21.9 Gastro-esophageal reflux disease without esophagitis; I11.9 Hypertensive heart disease without heart failure; E05.90 Thyrotoxicosis, unspecified without thyrotoxic crisis or storm; F17.210 Nicotine dependence, cigarettes, uncomplicated; Z86.73 Personal history of transient ischemic attack (TIA), and cerebral infarction without residual deficits; Z88.6 Allergy status to analgesic agent; Z88.5 Allergy status to narcotic agent; W50.0XXA Accidental hit or strike by another person, initial encounter; Y93.89 Activity, other specified; Y92.89 Other specified places as the place of occurrence of the external cause; Y99.8 Other external cause status
CPT/HCPCS: 99284

== ENCOUNTER 2018-04-25 17:36 | Inpatient (IN) | payer MEDICARE, OTHER ==
[~2018-04-25] VITALS: Ht 162.6 cm; Wt 110.0 kg
[2018-04-25] MEDS ORDERED: DIAZ5 PO (19:01)
[2018-04-25] MEDS ORDERED: BENZ-51 PO (19:01)
[2018-04-25] MEDS ORDERED: TRAM50TA4 PO (19:01)
[2018-04-25 19:22] LABS: BASOPHILS % (AUTO) 0.4 % (0.0-2.0); EOSINOPHILS % (AUTO) 4.2 % (1.0-6.0); HEMOGLOBIN 11.1 g/dL (12.0-16.0); LYMPHOCYTES # (AUTO) 2.4 K/uL (1.0-4.8); LYMPHOCYTES % (AUTO) 25.3 % (22.0-44.0); MEAN CORPUSCULAR HEMOGLOBIN 34.2 pg (26.0-34.0); MEAN CORPUSCULAR HGB CONC 33.6 G/dL (31.0-37.0); MEAN CORPUSCULAR VOLUME 102 fL (80-100); MONOCYTES # (AUTO) 0.7 K/uL (0.1-1.0); MONOCYTES % (AUTO) 6.9 % (2.0-9.0); NEUTROPHILS % (AUTO) 63.2 % (40.0-70.0); PLATELET COUNT (AUTO) 216 K/uL (150-450); RED BLOOD CELL COUNT(AUTO) 3.25 MIL/uL (4.00-5.20)
[2018-04-25 19:34] LABS: CALCIUM, TOTAL 8.8 mg/dL (8.8-10.5); CREATININE 2.63 mg/dL (0.60-1.30); POTASSIUM 3.4 mmol/L (3.5-5.1)
[2018-04-25 19:41] LABS: BILIRUBIN,TOTAL 0.3 mg/dL (0.1-1.0); TOTAL PROTEIN, SERUM 7.2 g/dL (6.4-8.2)
[2018-04-25 22:13] LABS: APPEARANCE,URINE CLOUDY (CLEAR); BILIRUBIN,URINE NEGATIVE (NEGATIVE); GLUCOSE, URINE (UA) NEGATIVE (NEGATIVE); KETONES,URINE NEGATIVE (NEGATIVE); LEUKOCYTE ESTERASE ,URINE LARGE (NEGATIVE); NITRATE,URINE POSITIVE (NEGATIVE); OCCULT BLOOD,URINE NEGATIVE (NEGATIVE); PH,URINE 5.5 (5.0-8.0); PROTEIN,URINE NEGATIVE (NEGATIVE); UROBILINOGEN,URINE 0.2 mg/dL (<=1.0)
[2018-04-25 22:59] LABS: BACTERIA,URINE Many /HPF (None Seen); RBC,URINE None Seen /HPF (0-2); SQUAMOUS EPITHELIAL CELL,UR Few /LPF (None Seen); WBC,URINE 26-50 /HPF (0-5)
[2018-04-25] MEDS ORDERED: BISACODYL 10 MG RECTAL RECTAL SUPPOSITORY PR PRN (23:15)
[2018-04-25] MEDS ORDERED: ZOLPIDEM TARTRATE 5 MG TABLET PO PRN (23:15)
[2018-04-25] MEDS ORDERED: ALBUTEROL SULFATE 2.5 MG/0.5 ML NEB SOLUTION NEB PRN (23:15)
[2018-04-25] MEDS ORDERED: ONDANSETRON HCL 4 MG/2 ML VIAL IVP PRN (23:15)
[2018-04-25] MEDS ORDERED: IPRATROPIUM BROMIDE 0.5 MG/2.5 ML NEB SOLUTION NEB PRN (23:15)
[2018-04-25] MEDS ORDERED: MAGNESIUM HYDROXIDE SUSPENSION 30 ML UDCUP PO PRN (23:15)
[2018-04-25] MEDS ORDERED: TiZANidine HCL 4 MG TABLET PO PRN (23:15)
[2018-04-25 23:43] VITALS: BP 134/90
[2018-04-25] MEDS: SODIUM CHLORIDE 0.9% 1,000 ML IV SCH (23:48)
[2018-04-26 04:49] VITALS: BP 131/95
[2018-04-26 06:07] LABS: BASOPHILS % (AUTO) 0.6 % (0.0-2.0); EOSINOPHILS % (AUTO) 5.8 % (1.0-6.0); HEMATOCRIT 31.7 % (36-46); HEMOGLOBIN 10.8 g/dL (12.0-16.0); LYMPHOCYTES # (AUTO) 2.8 K/uL (1.0-4.8); LYMPHOCYTES % (AUTO) 34.5 % (22.0-44.0); MEAN CORPUSCULAR HEMOGLOBIN 34.7 pg (26.0-34.0); MEAN CORPUSCULAR HGB CONC 34.1 G/dL (31.0-37.0); MEAN CORPUSCULAR VOLUME 102 fL (80-100); MONOCYTES # (AUTO) 0.7 K/uL (0.1-1.0); MONOCYTES % (AUTO) 8.2 % (2.0-9.0); NEUTROPHILS # (AUTO) 4.2 K/uL (1.8-7.7); NEUTROPHILS % (AUTO) 50.9 % (40.0-70.0); PLATELET COUNT (AUTO) 219 K/uL (150-450); RED BLOOD CELL COUNT(AUTO) 3.12 MIL/uL (4.00-5.20); RED CELL DISTRIBUTION WIDTH 13.7 % (11.5-14.5)
[2018-04-26 06:10] LABS: PROTHROMBIN TIME 10.4 SEC (9.4-11.6)
[2018-04-26 06:17] LABS: HEMOGLOBIN A1C 4.9 % (4.5-6.2)
[2018-04-26 06:36] LABS: ALBUMIN 2.7 g/dL (3.4-5.0); BILIRUBIN,TOTAL 0.2 mg/dL (0.1-1.0); CALCIUM, TOTAL 8.5 mg/dL (8.8-10.5); CREATININE 2.56 mg/dL (0.60-1.30); MAGNESIUM 2.4 mg/dL (1.80-2.40); PHOSPHORUS 3.7 mg/dL (2.5-4.9); POTASSIUM 3.2 mmol/L (3.5-5.1); TOTAL PROTEIN, SERUM 6.6 g/dL (6.4-8.2)
[2018-04-26] MEDS: DIAZEPAM 5 MG TABLET PO SCH (08:35)
[2018-04-26] MEDS: ATORVASTATIN CALCIUM 20 MG TABLET PO SCH (08:35)
[2018-04-26] MEDS: PANTOPRAZOLE SODIUM 40 MG DR TABLET PO SCH (08:36)
[2018-04-26] MEDS: FERROUS SULFATE 325 MG EC TABLET PO SCH (08:36)
[2018-04-26] MEDS: CLOPIDOGREL BISULFATE 75 MG TABLET PO SCH (08:36)
[2018-04-26] MEDS: CITALOPRAM HYDROBROMIDE 10 MG TABLET PO SCH (08:37)
[2018-04-26] MEDS: DULoxetine HCL 60 MG CAPSULE PO SCH (08:37)
[2018-04-26 08:38] VITALS: BP 132/57
[2018-04-26] MEDS ORDERED: POTASSIUM CHLORIDE 20 MEQ ER TABLET PO ONE ×2 (08:45→09:15)
[2018-04-26] MEDS ORDERED: SODIUM CHLORIDE 0.45% 1,000 ML IV ONE (08:45)
[2018-04-26] MEDS ORDERED: GABAPENTIN 100 MG CAPSULE PO SCH (09:00)
[2018-04-26] MEDS: SODIUM CHLORIDE 0.9% 1,000 ML IV SCH (09:02)
[2018-04-26 11:52] VITALS: BP 108/58
[2018-04-26 14:52] LABS: CALCIUM, TOTAL 8.7 mg/dL (8.8-10.5); CREATININE 2.27 mg/dL (0.60-1.30); POTASSIUM 3.8 mmol/L (3.5-5.1)
[2018-04-26 16:00] VITALS: BP 110/70
[2018-04-26] MEDS ORDERED: POTASSIUM CHLORIDE 10% 40 MEQ/30 ML LIQUID UDCUP PO ONE (18:30)
[2018-04-26 19:45] VITALS: BP 102/60
[2018-04-26] MEDS ORDERED: QUEtiapine FUMARATE 25 MG TABLET PO SCH (21:00)
[2018-04-26] MEDS: GABAPENTIN 300 MG CAPSULE PO SCH (21:20)
[2018-04-26] MEDS: ACETAMINOPHEN 325 MG TABLET PO PRN (22:32)
[2018-04-27] VITALS (7 sets, daily range): BP systolic 102–120; BP diastolic 61–68
[2018-04-27] MEDS: ATORVASTATIN CALCIUM 20 MG TABLET PO SCH (08:57)
[2018-04-27] MEDS: CLOPIDOGREL BISULFATE 75 MG TABLET PO SCH (08:57)
[2018-04-27] MEDS: PANTOPRAZOLE SODIUM 40 MG DR TABLET PO SCH (08:57)
[2018-04-27] MEDS: GABAPENTIN 300 MG CAPSULE PO SCH ×3 (08:57→20:35)
[2018-04-27] MEDS: DIAZEPAM 5 MG TABLET PO SCH (08:58)
[2018-04-27] MEDS: FERROUS SULFATE 325 MG EC TABLET PO SCH (08:58)
[2018-04-27] MEDS: CITALOPRAM HYDROBROMIDE 10 MG TABLET PO SCH (08:58)
[2018-04-27] MEDS: DULoxetine HCL 60 MG CAPSULE PO SCH (08:59)
[2018-04-27] MEDS: SODIUM CHLORIDE 0.9% 1,000 ML IV SCH (15:48)
[2018-04-27] MEDS: QUEtiapine FUMARATE 100 MG TABLET PO SCH (20:35)
[2018-04-28 05:26] VITALS: BP 108/60
[2018-04-28 06:40] LABS: CREATININE 1.93 mg/dL (0.60-1.30); MAGNESIUM 1.8 mg/dL (1.80-2.40); PHOSPHORUS 2.6 mg/dL (2.5-4.9); POTASSIUM 3.8 mmol/L (3.5-5.1)
[2018-04-28 07:15] VITALS: BP 133/88
[2018-04-28] MEDS: GABAPENTIN 300 MG CAPSULE PO SCH ×3 (09:18→20:16)
[2018-04-28] MEDS: DIAZEPAM 5 MG TABLET PO SCH (09:18)
[2018-04-28] MEDS: ATORVASTATIN CALCIUM 20 MG TABLET PO SCH (09:18)
[2018-04-28] MEDS: CITALOPRAM HYDROBROMIDE 10 MG TABLET PO SCH (09:18)
[2018-04-28] MEDS: CLOPIDOGREL BISULFATE 75 MG TABLET PO SCH (09:18)
[2018-04-28] MEDS: FERROUS SULFATE 325 MG EC TABLET PO SCH (09:18)
[2018-04-28] MEDS: DULoxetine HCL 60 MG CAPSULE PO SCH (09:18)
[2018-04-28] MEDS: PANTOPRAZOLE SODIUM 40 MG DR TABLET PO SCH (09:19)
[2018-04-28 11:55] VITALS: BP 116/74
[2018-04-28 16:04] VITALS: BP 114/72
[2018-04-28] MEDS: ACETAMINOPHEN 325 MG TABLET PO PRN ×2 (16:19→20:16)
[2018-04-28 17:14] LABS: EOSINOPHILS % (AUTO) 1.9 % (1.0-6.0); HEMATOCRIT 35.2 % (36-46); HEMOGLOBIN 11.7 g/dL (12.0-16.0); LYMPHOCYTES # (AUTO) 2.4 K/uL (1.0-4.8); MEAN CORPUSCULAR HEMOGLOBIN 33.9 pg (26.0-34.0); MEAN CORPUSCULAR HGB CONC 33.2 G/dL (31.0-37.0); MEAN CORPUSCULAR VOLUME 102 fL (80-100); MONOCYTES # (AUTO) 0.5 K/uL (0.1-1.0); NEUTROPHILS # (AUTO) 5.2 K/uL (1.8-7.7); NEUTROPHILS % (AUTO) 62.1 % (40.0-70.0); PLATELET COUNT (AUTO) 260 K/uL (150-450); RED BLOOD CELL COUNT(AUTO) 3.46 MIL/uL (4.00-5.20); RED CELL DISTRIBUTION WIDTH 13.7 % (11.5-14.5)
[2018-04-28 17:20] LABS: CALCIUM, TOTAL 9.2 mg/dL (8.8-10.5); CREATININE 1.88 mg/dL (0.60-1.30); POTASSIUM 4.2 mmol/L (3.5-5.1)
[2018-04-28] MEDS: SODIUM CHLORIDE 0.9% 1,000 ML IV SCH (19:03)
[2018-04-28 20:05] VITALS: BP 106/66
[2018-04-28] MEDS: QUEtiapine FUMARATE 100 MG TABLET PO SCH (20:16)
[2018-04-29 00:05] VITALS: BP 110/69
[2018-04-29 04:05] VITALS: BP 119/63
[2018-04-29 08:00] VITALS: BP 130/64
[2018-04-29] MEDS: CITALOPRAM HYDROBROMIDE 10 MG TABLET PO SCH (08:44)
[2018-04-29] MEDS: DULoxetine HCL 60 MG CAPSULE PO SCH (08:44)
[2018-04-29] MEDS: PANTOPRAZOLE SODIUM 40 MG DR TABLET PO SCH (08:44)
[2018-04-29] MEDS: ATORVASTATIN CALCIUM 20 MG TABLET PO SCH (08:44)
[2018-04-29] MEDS: DIAZEPAM 5 MG TABLET PO SCH (08:44)
[2018-04-29] MEDS: CLOPIDOGREL BISULFATE 75 MG TABLET PO SCH (08:44)
[2018-04-29] MEDS: GABAPENTIN 300 MG CAPSULE PO SCH (08:44)
[2018-04-29] MEDS: FERROUS SULFATE 325 MG EC TABLET PO SCH (08:45)
[2018-04-29 11:19] VITALS: BP 150/96
[2018-04-29 12:26] VITALS: BP 126/55
== END 2018-04-29 14:07 | disposition home or self-care (01) | DRG 683 ==
LOC: EMS 17:37 → 4E 22:00 → 6N 04-26 15:00
PROVIDERS: ADMIT Internal Medicine; ATTEND Internal Medicine
PROC: 3E0234Z Introduction of Serum, Toxoid and Vaccine into Muscle, Percutaneous Approach (ICD-10-PCS; principal; 2018-04-26)
DX: N17.9 Acute kidney failure, unspecified (principal); Z68.41 Body mass index [BMI] 40.0-44.9, adult; E44.0 Moderate protein-calorie malnutrition; E87.6 Hypokalemia; I13.10 Hypertensive heart and chronic kidney disease without heart failure, with stage 1 through stage 4 chronic kidney disease, or unspecified chronic kidney disease; N18.9 Chronic kidney disease, unspecified; J44.9 Chronic obstructive pulmonary disease, unspecified; F41.8 Other specified anxiety disorders; K59.00 Constipation, unspecified; E78.5 Hyperlipidemia, unspecified; M19.90 Unspecified osteoarthritis, unspecified site; E66.9 Obesity, unspecified; F32.9 Major depressive disorder, single episode, unspecified; N20.0 Calculus of kidney; K21.9 Gastro-esophageal reflux disease without esophagitis; D64.9 Anemia, unspecified; F03.90 Unspecified dementia, unspecified severity, without behavioral disturbance, psychotic disturbance, mood disturbance, and anxiety; J31.0 Chronic rhinitis; I25.10 Atherosclerotic heart disease of native coronary artery without angina pectoris; Z95.5 Presence of coronary angioplasty implant and graft; Z88.6 Allergy status to analgesic agent; Z88.8 Allergy status to other drugs, medicaments and biological substances; Z87.891 Personal history of nicotine dependence; Z86.73 Personal history of transient ischemic attack (TIA), and cerebral infarction without residual deficits; Z23 Encounter for immunization; Z79.02 Long term (current) use of antithrombotics/antiplatelets
CPT/HCPCS: 70450; 72125; 76770; 82948; 83036; 83735; 84100; 87081; 87086; 90686; 97161; 97530; G0378; J7030

== ENCOUNTER 2018-05-07 12:19 | Inpatient (IN) | payer MEDICARE, OTHER ==
[~2018-05-07] VITALS: Ht 170.2 cm; Wt 95.0 kg
[~2018-05-07 12:19] MED LIST changes: -BACL10TA PO; +BENZ-51 PO; +DIAZ5 PO; -DSS100 PO; -FAMO20 PO; -FLUT16H NASAL; -FURO20 PO; -LACT30L PO; -LISI-661 PO; -MECL-111 PO; -NYST15PO3 TP; +TRAM50TA4 PO
[2018-05-07] MEDS ORDERED: GABA-531 PO (12:49)
[2018-05-07] MEDS ORDERED: QUET100T PO (12:49)
[2018-05-07] MEDS ORDERED: DEXTROSE 50%-WATER 25 GM/50 ML SYRINGE IVP ONE (13:00)
[2018-05-07 13:35] LABS: BASOPHILS % (AUTO) 0.4 % (0.0-2.0); HEMATOCRIT 37.3 % (36-46); HEMOGLOBIN 12.5 g/dL (12.0-16.0); LYMPHOCYTES % (AUTO) 20.4 % (22.0-44.0); MEAN CORPUSCULAR HEMOGLOBIN 34.2 pg (26.0-34.0); MEAN CORPUSCULAR HGB CONC 33.5 G/dL (31.0-37.0); MEAN CORPUSCULAR VOLUME 102 fL (80-100); MONOCYTES # (AUTO) 0.4 K/uL (0.1-1.0); MONOCYTES % (AUTO) 4.2 % (2.0-9.0); NEUTROPHILS # (AUTO) 7.2 K/uL (1.8-7.7); PLATELET COUNT (AUTO) 236 K/uL (150-450); RED BLOOD CELL COUNT(AUTO) 3.66 MIL/uL (4.00-5.20); RED CELL DISTRIBUTION WIDTH 13.7 % (11.5-14.5)
[2018-05-07 13:44] LABS: ANION GAP 7 mmol/L (8-16); CALCIUM, TOTAL 9.3 mg/dL (8.8-10.5); CARBON DIOXIDE 31 mmol/L (22-29); CHLORIDE 101 mmol/L (98-107); CREATININE 2.67 mg/dL (0.60-1.30); GLOMERULAR FILTR. RATE CALC 17 mL/min (>60); GLUCOSE,RANDOM 85 mg/dL (70-110); POTASSIUM 3.9 mmol/L (3.5-5.1); SODIUM SERUM 139 mmol/L (136-145); UREA NITROGEN, BLOOD 31 mg/dL (7-18)
[2018-05-07 13:47] LABS: PROTHROMBIN TIME 10.6 SEC (9.4-11.6)
[2018-05-07 13:52] LABS: AMMONIA 37 umol/L (11-32)
[2018-05-07 13:59] LABS: ALANINE AMINOTRANSFERASE 16 U/L (12-78); ALBUMIN 3.5 g/dL (3.4-5.0); ALKALINE PHOSPHATASE 105 U/L (46-116); ASPARTATE AMINOTRANSFERASE 18 U/L (15-37); BILIRUBIN,TOTAL 0.4 mg/dL (0.1-1.0); CREATINE KINASE, TOTAL ONLY 96 U/L (26-192); THYROID STIMULATING HORMONE 0.74 uIU/mL (0.36-3.74); TOTAL PROTEIN, SERUM 8.1 g/dL (6.4-8.2)
[2018-05-07 14:00] LABS: TROPONIN I < 0.02 ng/mL (0.00-0.05)
[2018-05-07 14:15] LABS: LACTIC ACID 2.2 mmol/L (0.4-2.0)
[2018-05-07] MEDS ORDERED: SODIUM CHLORIDE 0.9% 1,000 ML IV ONE (14:15)
[2018-05-07 14:28] LABS: B-TYPE NATRIURETIC PEPTIDE 22 pg/mL (0-100)
[2018-05-07 14:31] LABS: ABG A-A DIFF O2 51.3 mmHg (10-20.0); ABG CARBOXYHEMOGLOBIN 1.6 % (0.0-1.5); ABG HCO3 24.5 mmol/L (22.0-26.0); ABG OXYGEN CONTENT 16.7 mL/dL (15.0-23.0); ABG OXYGEN SATURATION 96.3 % (95.0-98.0); ABG OXYHEMOGLOBIN 94.8 % (94.0-100.0); ABG PCO2 56 mmHg (35-45); ABG PH 7.308 (7.35-7.450); ABG TOTAL HEMOGLOBIN 12.5 G/dL (12.0-18.0); PO2, ARTERIAL BG 82.8 mmHg (75.0-83.0); SOURCE, BLOOD GAS ARTERIAL; TEMPERATURE, FAHRENHEIT, BG 97.9 FAHREN (96.0-98.6)
[2018-05-07 14:32] LABS: O2 DEVICE,BLOOD GAS CANNULA (ROOM AIR); SITE, BLOOD GAS LFT RADIAL
[2018-05-07] MEDS ORDERED: ATROPINE SULFATE 0.1 MG/ML 10 ML SYRINGE IVP ONE ×2 (15:00→16:28)
[2018-05-07] MEDS ORDERED: SUCCINYLCHOLINE CHLORIDE 20 MG/ML 10 ML VIAL IM ONE (16:28)
[2018-05-07] MEDS ORDERED: ETOMIDATE 2 MG/ML 10 ML VIAL IV ONE (16:28)
[2018-05-07 16:41] LABS: APPEARANCE,URINE CLOUDY (CLEAR); BILIRUBIN,URINE NEGATIVE (NEGATIVE); GLUCOSE, URINE (UA) NEGATIVE (NEGATIVE); KETONES,URINE NEGATIVE (NEGATIVE); LEUKOCYTE ESTERASE ,URINE MODERATE (NEGATIVE); OCCULT BLOOD,URINE NEGATIVE (NEGATIVE); PROTEIN,URINE NEGATIVE (NEGATIVE); UROBILINOGEN,URINE 0.2 mg/dL (<=1.0)
[2018-05-07 16:43] LABS: BACTERIA,URINE Many /HPF (None Seen); NITRATE,URINE POSITIVE (NEGATIVE); RBC,URINE 0-2 /HPF (0-2); SQUAMOUS EPITHELIAL CELL,UR Few /LPF (None Seen)
[2018-05-07] MEDS ORDERED: CefTRIAXone SODIUM 1 GM in DEXTROSE 5%-WATER 10 ML IV ONE (16:45)
[2018-05-07 16:49] LABS: AMPHET/METH SCREEN,URINE NEGATIVE (NEGATIVE); BARBITURATE SCREEN, URINE NEGATIVE (NEGATIVE); BENZODIAZEPINES SCREEN,URINE POSITIVE (NEGATIVE); CANNABINOID SCREEN,URINE NEGATIVE (NEGATIVE); COCAINE SCREEN,URINE NEGATIVE (NEGATIVE); METHADONE SCREEN, URINE NEGATIVE (NEGATIVE); OPIATE SCREEN,URINE NEGATIVE (NEGATIVE); PHENCYCLIDINE SCREEN,URINE NEGATIVE (NEGATIVE)
[2018-05-07 19:10] LABS: ABG A-A DIFF O2 33.6 mmHg (10-20.0); ABG BASE EXCESS 0.1 mmol/L (-2.0-3.0); ABG CARBOXYHEMOGLOBIN 1.7 % (0.0-1.5); ABG HCO3 23.7 mmol/L (22.0-26.0); ABG METHEMOGLOBIN 0.1 % (0.0-1.5); ABG OXYGEN SATURATION 98.1 % (95.0-98.0); ABG OXYHEMOGLOBIN 96.3 % (94.0-100.0); ABG PCO2 58 mmHg (35-45); ABG PH 7.278 (7.35-7.450); ABG TOTAL HEMOGLOBIN 12.4 G/dL (12.0-18.0); PO2, ARTERIAL BG 112.5 mmHg (75.0-83.0); SOURCE, BLOOD GAS ARTERIAL; TEMPERATURE, FAHRENHEIT, BG 96.6 FAHREN (96.0-98.6)
[2018-05-07 19:11] LABS: O2 DEVICE,BLOOD GAS BIPAP (ROOM AIR); SITE, BLOOD GAS RT RADIAL
[2018-05-07 22:08] LABS: ABG BASE EXCESS -0.1 mmol/L (-2.0-3.0); ABG HCO3 23.7 mmol/L (22.0-26.0); SOURCE, BLOOD GAS ARTERIAL
[2018-05-07 22:12] LABS: ABG A-A DIFF O2 7.4 mmHg (10-20.0); ABG CARBOXYHEMOGLOBIN 0.9 % (0.0-1.5); ABG METHEMOGLOBIN 0.2 % (0.0-1.5); ABG OXYGEN CONTENT 17.1 mL/dL (15.0-23.0); ABG OXYGEN SATURATION 98.6 % (95.0-98.0); ABG OXYHEMOGLOBIN 97.5 % (94.0-100.0); ABG PCO2 57 mmHg (35-45); ABG PH 7.283 (7.35-7.450); ABG TOTAL HEMOGLOBIN 12.3 G/dL (12.0-18.0); O2 DEVICE,BLOOD GAS BIPAP (ROOM AIR); PO2, ARTERIAL BG 139.3 mmHg (75.0-83.0); SITE, BLOOD GAS RT BRACHIAL
[2018-05-07] MEDS ORDERED: RAPID SEQUENCE KIT [RSI] 1 EACH KIT ONE (22:50)
[2018-05-07] MEDS ORDERED: PROPOFOL 1000 MG/ISO-OSM 100 ML IV PRN (23:09)
[2018-05-07] MEDS ORDERED: PROPOFOL 1000 MG/ISO-OSM 100 ML IV ONE (23:14)
[2018-05-08] VITALS (8 sets, daily range): BP systolic 101–159; BP diastolic 43–89
[2018-05-08] MEDS ORDERED: 0.9% SODIUM CHLORIDE 10 ML SYRINGE IVP PRN
[2018-05-08] MEDS ORDERED: SODIUM CHLORIDE 0.9% 250 ML IV ONE ×2 (00:08→05:51)
[2018-05-08] MEDS ORDERED: VANCOMYCIN HCL 1 GM/D5% WATER 200 ML IV PRN (00:15)
[2018-05-08] MEDS: PIPERACILLIN SODIUM/TAZOBACTAM 2.25 GM in DEXTROSE 5%-WATER 50 ML IV SCH ×4 (00:36→18:23)
[2018-05-08 00:57] LABS: ABG A-A DIFF O2 140.8 mmHg (10-20.0); ABG BASE EXCESS -1.4 mmol/L (-2.0-3.0); ABG CARBOXYHEMOGLOBIN 1.2 % (0.0-1.5); ABG HCO3 24.2 mmol/L (22.0-26.0); ABG METHEMOGLOBIN 0.3 % (0.0-1.5); ABG OXYGEN CONTENT 16.9 mL/dL (15.0-23.0); ABG OXYGEN SATURATION 97.3 % (95.0-98.0); ABG OXYHEMOGLOBIN 95.8 % (94.0-100.0); ABG PCO2 28 mmHg (35-45); ABG PH 7.514 (7.35-7.450); ABG TOTAL HEMOGLOBIN 12.5 G/dL (12.0-18.0); PO2, ARTERIAL BG 77.4 mmHg (75.0-83.0); SOURCE, BLOOD GAS ARTERIAL; TEMPERATURE, FAHRENHEIT, BG 97.5 FAHREN (96.0-98.6)
[2018-05-08 00:58] LABS: O2 DEVICE,BLOOD GAS VENTILATOR (ROOM AIR); PEEP,BG 5 cm H2O; SITE, BLOOD GAS RT BRACHIAL; SPONTANEOUS VT, BG 499 ml; VT, ABG 550 ml
[2018-05-08] MEDS ORDERED: VANCOMYCIN HCL 1 GM/D5% WATER 200 ML IV ONE ×2 (01:00→05:00)
[2018-05-08] MEDS: ALBUTEROL SULFATE 2.5 MG/0.5 ML NEB SOLUTION NEB SCH ×4 (01:46→19:41)
[2018-05-08] MEDS: IPRATROPIUM BROMIDE 0.5 MG/2.5 ML NEB SOLUTION NEB SCH ×4 (01:47→19:41)
[2018-05-08] MEDS ORDERED: ALBUTEROL SULFATE 2.5 MG/0.5 ML NEB SOLUTION NEB SCH ×2 (02:00→03:00)
[2018-05-08] MEDS ORDERED: IPRATROPIUM BROMIDE 0.5 MG/2.5 ML NEB SOLUTION NEB SCH (02:00)
[2018-05-08] MEDS: PROPOFOL 1000 MG/ISO-OSM 100 ML IV PRN ×4 (03:33→19:57)
[2018-05-08 05:09] LABS: BASOPHILS % (AUTO) 0.4 % (0.0-2.0); EOSINOPHILS % (AUTO) 1.4 % (1.0-6.0); HEMATOCRIT 38.7 % (36-46); HEMOGLOBIN 12.9 g/dL (12.0-16.0); LYMPHOCYTES % (AUTO) 21.5 % (22.0-44.0); MEAN CORPUSCULAR HEMOGLOBIN 34.2 pg (26.0-34.0); MEAN CORPUSCULAR HGB CONC 33.4 G/dL (31.0-37.0); MEAN CORPUSCULAR VOLUME 102 fL (80-100); MONOCYTES # (AUTO) 0.5 K/uL (0.1-1.0); MONOCYTES % (AUTO) 5.2 % (2.0-9.0); NEUTROPHILS # (AUTO) 6.7 K/uL (1.8-7.7); NEUTROPHILS % (AUTO) 71.5 % (40.0-70.0); PLATELET COUNT (AUTO) 227 K/uL (150-450); RED BLOOD CELL COUNT(AUTO) 3.78 MIL/uL (4.00-5.20); RED CELL DISTRIBUTION WIDTH 13.8 % (11.5-14.5)
[2018-05-08 05:18] LABS: CREATININE 2.01 mg/dL (0.60-1.30)
[2018-05-08 05:24] LABS: POTASSIUM 2.8 mmol/L (3.5-5.1)
[2018-05-08] MEDS: POTASSIUM CHL 10 MEQ/WATER 50 ML IV PRN ×10 (06:01→23:20)
[2018-05-08 08:05] LABS: ABG A-A DIFF O2 131.9 mmHg (10-20.0); ABG BASE EXCESS 0.7 mmol/L (-2.0-3.0); ABG CARBOXYHEMOGLOBIN 1.1 % (0.0-1.5); ABG HCO3 25.4 mmol/L (22.0-26.0); ABG METHEMOGLOBIN 0.1 % (0.0-1.5); ABG OXYGEN CONTENT 17.1 mL/dL (15.0-23.0); ABG OXYGEN SATURATION 96.4 % (95.0-98.0); ABG OXYHEMOGLOBIN 95.2 % (94.0-100.0); ABG PCO2 34 mmHg (35-45); ABG PH 7.471 (7.35-7.450); ABG TOTAL HEMOGLOBIN 12.7 G/dL (12.0-18.0); SOURCE, BLOOD GAS ARTERIAL; TEMPERATURE, FAHRENHEIT, BG 98.6 FAHREN (96.0-98.6)
[2018-05-08 08:07] LABS: O2 DEVICE,BLOOD GAS VENTILATOR (ROOM AIR); SITE, BLOOD GAS RT RADIAL
[2018-05-08 08:08] LABS: PEEP,BG 5 cm H2O; VT, ABG 500 ml
[2018-05-08] MEDS: CLOPIDOGREL BISULFATE 75 MG TABLET PO SCH (09:11)
[2018-05-08] MEDS: PANTOPRAZOLE SODIUM 40 MG/VIAL IVP SCH (09:11)
[2018-05-08] MEDS ORDERED: HydrALAZINE HCL 50 MG TABLET PO ONE (18:30)
[2018-05-08] MEDS ORDERED: HydrALAZINE HCL 20 MG/ML VIAL IVP PRN (18:45)
[2018-05-09] VITALS (9 sets, daily range): BP systolic 146–160; BP diastolic 69–78
[2018-05-09] MEDS: HydrALAZINE HCL 25 MG TABLET PO SCH ×4 (00:02→23:24)
[2018-05-09] MEDS: PIPERACILLIN SODIUM/TAZOBACTAM 2.25 GM in DEXTROSE 5%-WATER 50 ML IV SCH ×3 (00:02→11:55)
[2018-05-09] MEDS: POTASSIUM CHL 10 MEQ/WATER 50 ML IV PRN ×4 (00:49→08:19)
[2018-05-09] MEDS: PROPOFOL 1000 MG/ISO-OSM 100 ML IV PRN ×5 (02:09→23:24)
[2018-05-09] MEDS: IPRATROPIUM BROMIDE 0.5 MG/2.5 ML NEB SOLUTION NEB SCH ×4 (02:19→19:29)
[2018-05-09] MEDS: ALBUTEROL SULFATE 2.5 MG/0.5 ML NEB SOLUTION NEB SCH ×4 (02:19→19:29)
[2018-05-09] MEDS ORDERED: SODIUM CHLORIDE 0.9% 500 ML IV ONE (04:39)
[2018-05-09 05:11] LABS: CREATININE 1.79 mg/dL (0.60-1.30); VANCOMYCIN,RANDOM 16.5 mcg/mL (25.0-50.0)
[2018-05-09] MEDS: PANTOPRAZOLE SODIUM 40 MG/VIAL IVP SCH (07:57)
[2018-05-09] MEDS: CLOPIDOGREL BISULFATE 75 MG TABLET PO SCH (07:57)
[2018-05-09] MEDS ORDERED: VANCOMYCIN HCL 1.25 GM in DEXTROSE 5%-WATER 250 ML IV SCH (08:00)
[2018-05-09] MEDS: POTASSIUM CHLORIDE 10% 40 MEQ/30 ML LIQUID UDCUP NG PRN (10:00)
[2018-05-09 11:27] LABS: ABG A-A DIFF O2 124.8 mmHg (10-20.0); ABG BASE EXCESS -2.2 mmol/L (-2.0-3.0); ABG CARBOXYHEMOGLOBIN 0.9 % (0.0-1.5); ABG HCO3 23.3 mmol/L (22.0-26.0); ABG METHEMOGLOBIN 0.2 % (0.0-1.5); ABG OXYGEN CONTENT 17.8 mL/dL (15.0-23.0); ABG OXYGEN SATURATION 97.4 % (95.0-98.0); ABG OXYHEMOGLOBIN 96.3 % (94.0-100.0); ABG PCO2 32 mmHg (35-45); ABG PH 7.448 (7.35-7.450); ABG TOTAL HEMOGLOBIN 13.1 G/dL (12.0-18.0); PO2, ARTERIAL BG 87.7 mmHg (75.0-83.0); SOURCE, BLOOD GAS ARTERIAL; TEMPERATURE, FAHRENHEIT, BG 97.6 FAHREN (96.0-98.6)
[2018-05-09 11:28] LABS: O2 DEVICE,BLOOD GAS VENTILATOR (ROOM AIR); SITE, BLOOD GAS LFT RADIAL; VT, ABG 500 ml
[2018-05-09 11:29] LABS: PEEP,BG 5 cm H2O
[2018-05-09] MEDS: CefoTEtan DISOD 1 GM/DEXTROSE 50 ML IV SCH (19:04)
[2018-05-09] MEDS: HYPROMELLOSE 0.5% 15 ML OPHTHALMIC SOLUTION OU SCH (19:04)
[2018-05-10] VITALS (8 sets, daily range): BP systolic 125–161; BP diastolic 61–92
[2018-05-10] MEDS: ALBUTEROL SULFATE 2.5 MG/0.5 ML NEB SOLUTION NEB SCH ×4 (02:28→19:25)
[2018-05-10] MEDS: IPRATROPIUM BROMIDE 0.5 MG/2.5 ML NEB SOLUTION NEB SCH ×4 (02:28→19:25)
[2018-05-10] MEDS ORDERED: SODIUM CHLORIDE 0.9% 250 ML IV ONE (04:04)
[2018-05-10] MEDS: HYPROMELLOSE 0.5% 15 ML OPHTHALMIC SOLUTION OU SCH ×3 (05:02→18:22)
[2018-05-10] MEDS: PROPOFOL 1000 MG/ISO-OSM 100 ML IV PRN ×2 (05:02→09:04)
[2018-05-10 05:37] LABS: CALCIUM, TOTAL 9.2 mg/dL (8.8-10.5); CREATININE 1.87 mg/dL (0.60-1.30); POTASSIUM 3.4 mmol/L (3.5-5.1)
[2018-05-10] MEDS: POTASSIUM CHL 10 MEQ/WATER 50 ML IV PRN ×3 (06:20→09:21)
[2018-05-10] MEDS: PANTOPRAZOLE SODIUM 40 MG/VIAL IVP SCH (08:37)
[2018-05-10] MEDS: VANCOMYCIN HCL 1 GM/D5% WATER 200 ML IV SCH (08:37)
[2018-05-10] MEDS: CLOPIDOGREL BISULFATE 75 MG TABLET PO SCH (08:37)
[2018-05-10] MEDS: HydrALAZINE HCL 25 MG TABLET PO SCH ×3 (09:04→23:36)
[2018-05-10 15:10] LABS: ABG A-A DIFF O2 123.4 mmHg (10-20.0); ABG BASE EXCESS -3.5 mmol/L (-2.0-3.0); ABG CARBOXYHEMOGLOBIN 0.6 % (0.0-1.5); ABG HCO3 22.3 mmol/L (22.0-26.0); ABG OXYGEN CONTENT 17.7 mL/dL (15.0-23.0); ABG OXYGEN SATURATION 96.9 % (95.0-98.0); ABG OXYHEMOGLOBIN 96.3 % (94.0-100.0); ABG PCO2 33 mmHg (35-45); ABG PH 7.426 (7.35-7.450); PO2, ARTERIAL BG 88.4 mmHg (75.0-83.0); SOURCE, BLOOD GAS ARTERIAL; TEMPERATURE, FAHRENHEIT, BG 98.6 FAHREN (96.0-98.6)
[2018-05-10 15:13] LABS: CPAP, BG 0 cm H2O; O2 DEVICE,BLOOD GAS VENTILATOR (ROOM AIR); PEEP,BG 0 cm H2O; PRESSURE SUPPORT, BG 8 cm H2O; SITE, BLOOD GAS RT RADIAL; SPONTANEOUS VT, BG 495 ml; VENT MODE, BG SPONTANEOUS (ROOM AIR)
[2018-05-10] MEDS: CefoTEtan DISOD 1 GM/DEXTROSE 50 ML IV SCH (16:12)
[2018-05-11] VITALS (7 sets, daily range): BP systolic 110–157; BP diastolic 52–79
[2018-05-11] MEDS: IPRATROPIUM BROMIDE 0.5 MG/2.5 ML NEB SOLUTION NEB SCH ×4 (01:51→19:41)
[2018-05-11] MEDS: ALBUTEROL SULFATE 2.5 MG/0.5 ML NEB SOLUTION NEB SCH ×4 (01:51→19:41)
[2018-05-11 05:12] LABS: CALCIUM, TOTAL 9.9 mg/dL (8.8-10.5); CREATININE 1.68 mg/dL (0.60-1.30); POTASSIUM 3.4 mmol/L (3.5-5.1); VANCOMYCIN,RANDOM 22.4 mcg/mL (25.0-50.0)
[2018-05-11] MEDS: HYPROMELLOSE 0.5% 15 ML OPHTHALMIC SOLUTION OU SCH ×3 (06:13→18:02)
[2018-05-11] MEDS: VANCOMYCIN HCL 1 GM/D5% WATER 200 ML IV SCH (07:51)
[2018-05-11] MEDS: HydrALAZINE HCL 25 MG TABLET PO SCH ×2 (08:57→17:50)
[2018-05-11] MEDS: PANTOPRAZOLE SODIUM 40 MG/VIAL IVP SCH (08:57)
[2018-05-11] MEDS: CLOPIDOGREL BISULFATE 75 MG TABLET PO SCH (08:57)
[2018-05-11] MEDS: POTASSIUM CHLORIDE 10% 40 MEQ/30 ML LIQUID UDCUP NG PRN (09:38)
[2018-05-11] MEDS ORDERED: SODIUM CHLORIDE 0.9% 100 ML ONE (17:42)
[2018-05-11] MEDS: ACETAMINOPHEN 325 MG TABLET PO PRN (17:50)
[2018-05-11] MEDS: CefoTEtan DISOD 1 GM/DEXTROSE 50 ML IV SCH (17:51)
[2018-05-12] MEDS: HydrALAZINE HCL 25 MG TABLET PO SCH ×4 (01:08→23:59)
[2018-05-12] MEDS: ALBUTEROL SULFATE 2.5 MG/0.5 ML NEB SOLUTION NEB SCH ×4 (02:03→22:18)
[2018-05-12] MEDS: IPRATROPIUM BROMIDE 0.5 MG/2.5 ML NEB SOLUTION NEB SCH ×4 (02:03→22:18)
[2018-05-12 04:12] VITALS: BP 112/48
[2018-05-12] MEDS: HYPROMELLOSE 0.5% 15 ML OPHTHALMIC SOLUTION OU SCH ×3 (05:26→17:05)
[2018-05-12 07:05] LABS: CALCIUM, TOTAL 9.7 mg/dL (8.8-10.5); CREATININE 1.71 mg/dL (0.60-1.30); POTASSIUM 3.3 mmol/L (3.5-5.1)
[2018-05-12 07:34] VITALS: BP 124/51
[2018-05-12] MEDS: ACETAMINOPHEN 325 MG TABLET PO PRN ×3 (08:07→17:03)
[2018-05-12] MEDS: PANTOPRAZOLE SODIUM 40 MG/VIAL IVP SCH (08:07)
[2018-05-12] MEDS: CLOPIDOGREL BISULFATE 75 MG TABLET PO SCH (08:07)
[2018-05-12] MEDS: VANCOMYCIN HCL 1 GM/D5% WATER 200 ML IV SCH (08:07)
[2018-05-12] MEDS: POTASSIUM CHLORIDE 10% 40 MEQ/30 ML LIQUID UDCUP PO PRN (08:16)
[2018-05-12 11:18] VITALS: BP 122/58
[2018-05-12] MEDS ORDERED: ASPI81 PO (12:52)
[2018-05-12] MEDS ORDERED: AMIO200T44 PO (12:52)
[2018-05-12 15:49] VITALS: BP 130/59
[2018-05-12] MEDS: CefoTEtan DISOD 1 GM/DEXTROSE 50 ML IV SCH (17:04)
[2018-05-12] MEDS ORDERED: LOPERAMIDE HCL 2 MG CAPSULE PO ONE (17:45)
[2018-05-12] MEDS ORDERED: LOPERAMIDE HCL 2 MG CAPSULE PO PRN (17:45)
[2018-05-12 20:06] VITALS: BP 115/60
[2018-05-12 23:32] VITALS: BP 112/60
[2018-05-13] MEDS: ALBUTEROL SULFATE 2.5 MG/0.5 ML NEB SOLUTION NEB SCH ×4 (02:00→19:44)
[2018-05-13] MEDS: IPRATROPIUM BROMIDE 0.5 MG/2.5 ML NEB SOLUTION NEB SCH ×4 (02:00→19:44)
[2018-05-13 03:55] VITALS: BP 121/62
[2018-05-13] MEDS: HYPROMELLOSE 0.5% 15 ML OPHTHALMIC SOLUTION OU SCH (06:17)
[2018-05-13 07:45] VITALS: BP 119/76
[2018-05-13 07:45] LABS: CALCIUM, TOTAL 9.6 mg/dL (8.8-10.5); CREATININE 1.63 mg/dL (0.60-1.30); POTASSIUM 3.5 mmol/L (3.5-5.1)
[2018-05-13] MEDS ORDERED: SODIUM CHLORIDE 0.9% 100 ML ONE (07:52)
[2018-05-13] MEDS: HydrALAZINE HCL 25 MG TABLET PO SCH ×3 (07:57→23:43)
[2018-05-13] MEDS: ACETAMINOPHEN 325 MG TABLET PO PRN ×2 (07:58→23:42)
[2018-05-13] MEDS: VANCOMYCIN HCL 1 GM/D5% WATER 200 ML IV SCH (07:58)
[2018-05-13] MEDS: CLOPIDOGREL BISULFATE 75 MG TABLET PO SCH (08:00)
[2018-05-13] MEDS: PANTOPRAZOLE SODIUM 40 MG/VIAL IVP SCH (08:00)
[2018-05-13 11:04] VITALS: BP 114/61
[2018-05-13 15:08] LABS: BASOPHILS % (AUTO) 0.7 % (0.0-2.0); EOSINOPHILS % (AUTO) 3.6 % (1.0-6.0); HEMATOCRIT 36.5 % (36-46); HEMOGLOBIN 12.1 g/dL (12.0-16.0); LYMPHOCYTES # (AUTO) 3.7 K/uL (1.0-4.8); LYMPHOCYTES % (AUTO) 37.8 % (22.0-44.0); MEAN CORPUSCULAR HEMOGLOBIN 33.8 pg (26.0-34.0); MEAN CORPUSCULAR HGB CONC 33.3 G/dL (31.0-37.0); MEAN CORPUSCULAR VOLUME 102 fL (80-100); MONOCYTES # (AUTO) 0.6 K/uL (0.1-1.0); MONOCYTES % (AUTO) 6.3 % (2.0-9.0); NEUTROPHILS # (AUTO) 5.1 K/uL (1.8-7.7); NEUTROPHILS % (AUTO) 51.6 % (40.0-70.0); PLATELET COUNT (AUTO) 272 K/uL (150-450); RED BLOOD CELL COUNT(AUTO) 3.59 MIL/uL (4.00-5.20); RED CELL DISTRIBUTION WIDTH 14.2 % (11.5-14.5)
[2018-05-13 15:12] LABS: CALCIUM, TOTAL 9.8 mg/dL (8.8-10.5); CREATININE 1.58 mg/dL (0.60-1.30); POTASSIUM 3.7 mmol/L (3.5-5.1)
[2018-05-13 15:16] LABS: ALBUMIN 3.1 g/dL (3.4-5.0); BILIRUBIN,TOTAL 0.5 mg/dL (0.1-1.0); TOTAL PROTEIN, SERUM 7.6 g/dL (6.4-8.2)
[2018-05-13 15:33] VITALS: BP 125/75
[2018-05-13] MEDS: CefoTEtan DISOD 1 GM/DEXTROSE 50 ML IV SCH (16:46)
[2018-05-13] MEDS ORDERED: ALPRAZolam 0.25 MG TABLET PO PRN (17:00)
[2018-05-13] MEDS: DIAZEPAM 5 MG TABLET PO SCH (20:00)
[2018-05-13] MEDS: CITALOPRAM HYDROBROMIDE 10 MG TABLET PO SCH (20:00)
[2018-05-13 20:35] VITALS: BP 145/60
[2018-05-13] MEDS: QUEtiapine FUMARATE 100 MG TABLET PO SCH (21:00)
[2018-05-14] VITALS (7 sets, daily range): BP systolic 95–158; BP diastolic 57–70
[2018-05-14] MEDS: IPRATROPIUM BROMIDE 0.5 MG/2.5 ML NEB SOLUTION NEB SCH ×4 (01:33→19:37)
[2018-05-14] MEDS: ALBUTEROL SULFATE 2.5 MG/0.5 ML NEB SOLUTION NEB SCH ×4 (01:34→19:37)
[2018-05-14 06:36] LABS: BASOPHILS % (AUTO) 0.8 % (0.0-2.0); EOSINOPHILS % (AUTO) 4.7 % (1.0-6.0); HEMATOCRIT 35.6 % (36-46); HEMOGLOBIN 11.9 g/dL (12.0-16.0); LYMPHOCYTES # (AUTO) 3.5 K/uL (1.0-4.8); LYMPHOCYTES % (AUTO) 33.1 % (22.0-44.0); MEAN CORPUSCULAR HEMOGLOBIN 34.2 pg (26.0-34.0); MEAN CORPUSCULAR HGB CONC 33.5 G/dL (31.0-37.0); MEAN CORPUSCULAR VOLUME 102 fL (80-100); MONOCYTES # (AUTO) 0.8 K/uL (0.1-1.0); MONOCYTES % (AUTO) 7.3 % (2.0-9.0); NEUTROPHILS # (AUTO) 5.7 K/uL (1.8-7.7); NEUTROPHILS % (AUTO) 54.1 % (40.0-70.0); PLATELET COUNT (AUTO) 257 K/uL (150-450); RED BLOOD CELL COUNT(AUTO) 3.49 MIL/uL (4.00-5.20); RED CELL DISTRIBUTION WIDTH 13.8 % (11.5-14.5)
[2018-05-14 07:00] LABS: ALBUMIN 3.1 g/dL (3.4-5.0); BILIRUBIN,TOTAL 0.5 mg/dL (0.1-1.0); CALCIUM, TOTAL 9.5 mg/dL (8.8-10.5); CREATININE 1.74 mg/dL (0.60-1.30); POTASSIUM 3.5 mmol/L (3.5-5.1); TOTAL PROTEIN, SERUM 7.4 g/dL (6.4-8.2)
[2018-05-14] MEDS: CITALOPRAM HYDROBROMIDE 10 MG TABLET PO SCH (08:01)
[2018-05-14] MEDS: CLOPIDOGREL BISULFATE 75 MG TABLET PO SCH (08:01)
[2018-05-14] MEDS: HydrALAZINE HCL 25 MG TABLET PO SCH ×2 (08:01→16:45)
[2018-05-14] MEDS: DIAZEPAM 5 MG TABLET PO SCH (08:01)
[2018-05-14] MEDS: PANTOPRAZOLE SODIUM 40 MG/VIAL IVP SCH (08:01)
[2018-05-14] MEDS: ACETAMINOPHEN 325 MG TABLET PO PRN ×2 (13:39→20:32)
[2018-05-14] MEDS: CefoTEtan DISOD 1 GM/DEXTROSE 50 ML IV SCH (16:45)
[2018-05-14] MEDS: QUEtiapine FUMARATE 100 MG TABLET PO SCH (20:50)
[2018-05-15 01:16] VITALS: BP 107/61
[2018-05-15] MEDS: IPRATROPIUM BROMIDE 0.5 MG/2.5 ML NEB SOLUTION NEB SCH ×3 (02:00→15:08)
[2018-05-15] MEDS: ALBUTEROL SULFATE 2.5 MG/0.5 ML NEB SOLUTION NEB SCH ×3 (02:00→15:08)
[2018-05-15 04:05] VITALS: BP 99/53
[2018-05-15 05:50] LABS: BASOPHILS % (AUTO) 0.8 % (0.0-2.0); EOSINOPHILS % (AUTO) 5.1 % (1.0-6.0); HEMATOCRIT 34.6 % (36-46); HEMOGLOBIN 11.5 g/dL (12.0-16.0); LYMPHOCYTES # (AUTO) 3.4 K/uL (1.0-4.8); LYMPHOCYTES % (AUTO) 37.1 % (22.0-44.0); MEAN CORPUSCULAR HEMOGLOBIN 34.3 pg (26.0-34.0); MEAN CORPUSCULAR HGB CONC 33.3 G/dL (31.0-37.0); MEAN CORPUSCULAR VOLUME 103 fL (80-100); MONOCYTES # (AUTO) 0.6 K/uL (0.1-1.0); NEUTROPHILS # (AUTO) 4.6 K/uL (1.8-7.7); PLATELET COUNT (AUTO) 246 K/uL (150-450); RED BLOOD CELL COUNT(AUTO) 3.37 MIL/uL (4.00-5.20); RED CELL DISTRIBUTION WIDTH 13.6 % (11.5-14.5)
[2018-05-15 05:58] VITALS: BP 111/70
[2018-05-15 06:04] LABS: BILIRUBIN,TOTAL 0.4 mg/dL (0.1-1.0); CALCIUM, TOTAL 9.4 mg/dL (8.8-10.5); CREATININE 1.85 mg/dL (0.60-1.30); POTASSIUM 3.3 mmol/L (3.5-5.1)
[2018-05-15 07:39] VITALS: BP 104/48
[2018-05-15] MEDS: HydrALAZINE HCL 25 MG TABLET PO SCH ×2 (08:00)
[2018-05-15] MEDS ORDERED: VANCOMYCIN HCL 750 MG in DEXTROSE 5%-WATER 250 ML IV SCH (08:00)
[2018-05-15] MEDS: CITALOPRAM HYDROBROMIDE 10 MG TABLET PO SCH (08:28)
[2018-05-15] MEDS: CLOPIDOGREL BISULFATE 75 MG TABLET PO SCH (08:28)
[2018-05-15] MEDS: PANTOPRAZOLE SODIUM 40 MG/VIAL IVP SCH (08:28)
[2018-05-15] MEDS: ACETAMINOPHEN 325 MG TABLET PO PRN (08:29)
[2018-05-15] MEDS: DIAZEPAM 5 MG TABLET PO SCH (09:00)
[2018-05-15 11:27] VITALS: BP 111/62
[2018-05-15] MEDS ORDERED: [UNRECOGNIZED DRUG - CODE] IVPB (12:27)
[2018-05-15] MEDS ORDERED: DIAZ5 PO (12:27)
[2018-05-15] MEDS ORDERED: HYDR25TA84 PO (12:28)
[2018-05-15] MEDS ORDERED: AUD NEB (12:29)
[2018-05-15] MEDS ORDERED: IPRA3AMP23 NEB (12:29)
[2018-05-15] MEDS ORDERED: QUET100T PO (12:30)
[2018-05-15] MEDS: POTASSIUM CHLORIDE 10% 40 MEQ/30 ML LIQUID UDCUP PO PRN (14:13)
[2018-05-15 15:45] VITALS: BP 124/58
[2018-05-15] MEDS: CefoTEtan DISOD 1 GM/DEXTROSE 50 ML IV SCH (16:22)
== END 2018-05-15 17:50 | DRG 871 ==
LOC: EMS 12:20 → 5S 17:19 → ICU 20:07 → 5S 05-11 10:30
PROVIDERS: ADMIT Internal Medicine; ATTEND Internal Medicine
PROC: 5A09357 Assistance with Respiratory Ventilation, Less than 24 Consecutive Hours, Continuous Positive Airway Pressure (ICD-10-PCS; 2018-05-07)
PROC: 5A1945Z Respiratory Ventilation, 24-96 Consecutive Hours (ICD-10-PCS; principal; 2018-05-08)
PROC: 0BH17EZ Insertion of Endotracheal Airway into Trachea, Via Natural or Artificial Opening (ICD-10-PCS; 2018-05-08)
PROC: 05HY33Z Insertion of Infusion Device into Upper Vein, Percutaneous Approach (ICD-10-PCS; 2018-05-08)
PROC: B54MZZA Ultrasonography of Right Upper Extremity Veins, Guidance (ICD-10-PCS; 2018-05-08)
PROC: B54NZZA Ultrasonography of Left Upper Extremity Veins, Guidance (ICD-10-PCS; 2018-05-08)
DX: A41.9 Sepsis, unspecified organism (principal); G93.41 Metabolic encephalopathy; I50.31 Acute diastolic (congestive) heart failure; J18.9 Pneumonia, unspecified organism; J96.02 Acute respiratory failure with hypercapnia; N39.0 Urinary tract infection, site not specified; E87.2 Acidosis; I13.0 Hypertensive heart and chronic kidney disease with heart failure and stage 1 through stage 4 chronic kidney disease, or unspecified chronic kidney disease; I42.9 Cardiomyopathy, unspecified; J44.0 Chronic obstructive pulmonary disease with (acute) lower respiratory infection; B95.8 Unspecified staphylococcus as the cause of diseases classified elsewhere; B96.20 Unspecified Escherichia coli [E. coli] as the cause of diseases classified elsewhere; B96.89 Other specified bacterial agents as the cause of diseases classified elsewhere; E03.9 Hypothyroidism, unspecified; E78.00 Pure hypercholesterolemia, unspecified; G47.33 Obstructive sleep apnea (adult) (pediatric); I25.10 Atherosclerotic heart disease of native coronary artery without angina pectoris; K21.9 Gastro-esophageal reflux disease without esophagitis; F32.9 Major depressive disorder, single episode, unspecified; E05.90 Thyrotoxicosis, unspecified without thyrotoxic crisis or storm; N18.9 Chronic kidney disease, unspecified; Z16.12 Extended spectrum beta lactamase (ESBL) resistance; Z79.02 Long term (current) use of antithrombotics/antiplatelets; Z86.73 Personal history of transient ischemic attack (TIA), and cerebral infarction without residual deficits; Z88.8 Allergy status to other drugs, medicaments and biological substances; Z87.891 Personal history of nicotine dependence
CPT/HCPCS: 36245; 51702; 70450; 71250; 74018; 76937; 82805; 83605; 84132; 84443; 87040; 87070; 87081; 87086; 87205; 92610; 93005; 93306; 93970; 94002; 94003; 94640; 94660; 96365; 96375; 97116; 97162; 97167; 97530; 97535; C9113; G0378; G0480; J0330; J0360; J0461; J0696; J2543; J2704; J3370; J3480; J3490; J7050; J7060

== ENCOUNTER 2019-07-23 21:55 | Emergency (ER) | payer MEDICARE, OTHER ==
[~2019-07-23] VITALS: Ht 167.6 cm; Wt 109.1 kg
[~2019-07-23 21:55] MED LIST changes: +AUD NEB; -BENZ-51 PO; -CLOP75 PO; +CLOP75TA3 PO; -DIAZ5 PO; -GABA-529 PO; +GABA-531 PO; +HYDR25TA84 PO; +IPRA3AMP23 NEB; +QUET100T PO; -QUET25TA PO
[2019-07-23] MEDS ORDERED: BUSP10TA23 PO (22:14)
[2019-07-24 01:21] LABS: BASOPHILS % (AUTO) 0.6 % (0.0-2.0); HEMATOCRIT 33.7 % (36-46); HEMOGLOBIN 11.2 g/dL (12.0-16.0); LYMPHOCYTES # (AUTO) 3.2 K/uL (1.0-4.8); LYMPHOCYTES % (AUTO) 36.5 % (22.0-44.0); MEAN CORPUSCULAR HGB CONC 33.3 G/dL (31.0-37.0); MEAN CORPUSCULAR VOLUME 99 fL (80-100); MONOCYTES # (AUTO) 0.6 K/uL (0.1-1.0); MONOCYTES % (AUTO) 6.4 % (2.0-9.0); NEUTROPHILS # (AUTO) 4.8 K/uL (1.8-7.7); NEUTROPHILS % (AUTO) 54.5 % (40.0-70.0); PLATELET COUNT (AUTO) 342 K/uL (150-450); RED CELL DISTRIBUTION WIDTH 12.5 % (11.5-14.5)
[2019-07-24 01:32] LABS: ANION GAP 9 mmol/L (8-16); CALCIUM, TOTAL 10.1 mg/dL (8.8-10.5); CARBON DIOXIDE 23 mmol/L (22-29); CHLORIDE 97 mmol/L (98-107); CREATININE 2.01 mg/dL (0.60-1.30); GLOMERULAR FILTR. RATE CALC 24 mL/min (>60); GLUCOSE,RANDOM 113 mg/dL (70-110); POTASSIUM 4.8 mmol/L (3.5-5.1); SODIUM SERUM 129 mmol/L (136-145); UREA NITROGEN, BLOOD 31 mg/dL (7-18)
[2019-07-24 01:37] LABS: ALANINE AMINOTRANSFERASE 16 U/L (12-78); ALBUMIN 3.9 g/dL (3.4-5.0); ALKALINE PHOSPHATASE 124 U/L (46-116); ASPARTATE AMINOTRANSFERASE 17 U/L (15-37); BILIRUBIN,TOTAL 0.3 mg/dL (0.1-1.0); TOTAL PROTEIN, SERUM 7.8 g/dL (6.4-8.2)
[2019-07-24] MEDS ORDERED: ACETAMINOPHEN 500 MG TABLET PO ONE (01:45)
[2019-07-24 02:23] LABS: AMPHET/METH SCREEN,URINE NEGATIVE (NEGATIVE); BARBITURATE SCREEN, URINE NEGATIVE (NEGATIVE); BENZODIAZEPINES SCREEN,URINE NEGATIVE (NEGATIVE); CANNABINOID SCREEN,URINE NEGATIVE (NEGATIVE); COCAINE SCREEN,URINE NEGATIVE (NEGATIVE); METHADONE SCREEN, URINE NEGATIVE (NEGATIVE); OPIATE SCREEN,URINE NEGATIVE (NEGATIVE)
[2019-07-24 02:24] LABS: APPEARANCE,URINE CLOUDY (CLEAR); BILIRUBIN,URINE NEGATIVE (NEGATIVE); GLUCOSE, URINE (UA) NEGATIVE (NEGATIVE); KETONES,URINE NEGATIVE (NEGATIVE); LEUKOCYTE ESTERASE ,URINE LARGE (NEGATIVE); NITRATE,URINE POSITIVE (NEGATIVE); OCCULT BLOOD,URINE NEGATIVE (NEGATIVE); PH,URINE 5.5 (5.0-8.0); PROTEIN,URINE NEGATIVE (NEGATIVE); UROBILINOGEN,URINE 0.2 mg/dL (<=1.0)
[2019-07-24 02:26] LABS: BACTERIA,URINE Moderate /HPF (None Seen); RBC,URINE 0-2 /HPF (0-2); SQUAMOUS EPITHELIAL CELL,UR Few /LPF (None Seen); WBC,URINE 51-100 /HPF (0-5)
[2019-07-24 02:27] LABS: PHENCYCLIDINE SCREEN,URINE NEGATIVE (NEGATIVE)
[2019-07-24] MEDS ORDERED: CEPHALEXIN MONOHYDRATE 500 MG CAPSULE PO ONE (03:00)
[2019-07-24] MEDS ORDERED: MECLIZINE HCL 25 MG TABLET PO ONE (03:30)
[2019-07-24 04:59] VITALS: BP 152/73
== END 2019-07-24 05:58 | disposition home or self-care (01) ==
LOC: EMS 21:56
DX: N39.0 Urinary tract infection, site not specified (principal); F41.9 Anxiety disorder, unspecified; F32.9 Major depressive disorder, single episode, unspecified; I11.9 Hypertensive heart disease without heart failure; K21.9 Gastro-esophageal reflux disease without esophagitis; F17.210 Nicotine dependence, cigarettes, uncomplicated; J44.9 Chronic obstructive pulmonary disease, unspecified; Z86.73 Personal history of transient ischemic attack (TIA), and cerebral infarction without residual deficits; Z88.6 Allergy status to analgesic agent; Z88.5 Allergy status to narcotic agent; Z79.899 Other long term (current) drug therapy
CPT/HCPCS: 36415; 74176; 80053; 80307; 81001; 85025; 87077; 87086; 87186; 93005; 99284; 99406; G0480

== ENCOUNTER 2020-10-11 14:52 | Inpatient (IN) | payer MEDICARE, OTHER ==
[~2020-10-11] VITALS: Ht 167.6 cm; Wt 90.8 kg
[~2020-10-11 14:52] MED LIST changes: +BUSP10TA23 PO; -CITA10TA68 PO; -CLOP75TA3 PO; +CLOP75TA60 PO; +DULO-8 PO; -DULO60CA44 PO; -FERR-89 PO; -GABA-531 PO; +PANT-31 PO; -PANT40TA25 PO; -TRAM50TA4 PO
[2020-10-11 15:55] LABS: APPEARANCE,URINE CLOUDY (CLEAR); BILIRUBIN,URINE NEGATIVE (NEGATIVE); GLUCOSE, URINE (UA) NEGATIVE (NEGATIVE); KETONES,URINE NEGATIVE (NEGATIVE); LEUKOCYTE ESTERASE ,URINE LARGE (NEGATIVE); NITRATE,URINE NEGATIVE (NEGATIVE); OCCULT BLOOD,URINE NEGATIVE (NEGATIVE); PROTEIN,URINE NEGATIVE (NEGATIVE); UROBILINOGEN,URINE 0.2 mg/dL (<=1.0)
[2020-10-11 16:01] LABS: AMPHET/METH SCREEN,URINE NEGATIVE (NEGATIVE); BARBITURATE SCREEN, URINE POSITIVE (NEGATIVE); BENZODIAZEPINES SCREEN,URINE NEGATIVE (NEGATIVE); CANNABINOID SCREEN,URINE NEGATIVE (NEGATIVE); COCAINE SCREEN,URINE NEGATIVE (NEGATIVE); METHADONE SCREEN, URINE NEGATIVE (NEGATIVE); OPIATE SCREEN,URINE NEGATIVE (NEGATIVE); PHENCYCLIDINE SCREEN,URINE NEGATIVE (NEGATIVE)
[2020-10-11 16:06] LABS: WBC,URINE 51-100 /HPF (0-5)
[2020-10-11 16:07] LABS: BACTERIA,URINE Moderate /HPF (None Seen); RBC,URINE None Seen /HPF (0-2)
[2020-10-11 16:08] LABS: SQUAMOUS EPITHELIAL CELL,UR Rare /LPF (None Seen)
[2020-10-11] MEDS ORDERED: CLOTRIMAZOLE 1% 15 GM CREAM TP ONE (16:15)
[2020-10-11] MEDS ORDERED: ACETAMINOPHEN 325 MG TABLET PO ONE (16:30)
[2020-10-11 16:56] LABS: BASOPHILS % (AUTO) 0.8 % (0.0-2.0); EOSINOPHILS % (AUTO) 2.7 % (1.0-6.0); HEMATOCRIT 28.3 % (36-46); HEMOGLOBIN 9.4 g/dL (12.0-16.0); LYMPHOCYTES # (AUTO) 2.9 K/uL (1.0-4.8); MEAN CORPUSCULAR HEMOGLOBIN 31.2 pg (26.0-34.0); MEAN CORPUSCULAR HGB CONC 33.2 G/dL (31.0-37.0); MEAN CORPUSCULAR VOLUME 94 fL (80-100); MONOCYTES # (AUTO) 0.6 K/uL (0.1-1.0); MONOCYTES % (AUTO) 6.6 % (2.0-9.0); NEUTROPHILS # (AUTO) 5.5 K/uL (1.8-7.7); NEUTROPHILS % (AUTO) 58.9 % (40.0-70.0); PLATELET COUNT (AUTO) 303 K/uL (150-450); RED BLOOD CELL COUNT(AUTO) 3.02 MIL/uL (4.00-5.20); RED CELL DISTRIBUTION WIDTH 13.3 % (11.5-14.5)
[2020-10-11 17:15] LABS: CALCIUM, TOTAL 9.4 mg/dL (8.8-10.5); CREATININE 1.72 mg/dL (0.60-1.30); POTASSIUM 4.5 mmol/L (3.5-5.1)
[2020-10-11 17:25] LABS: ALBUMIN 3.4 g/dL (3.4-5.0); BILIRUBIN,TOTAL 0.2 mg/dL (0.1-1.0); TOTAL PROTEIN, SERUM 7.6 g/dL (6.4-8.2)
[2020-10-11] MEDS ORDERED: MORPHINE SULFATE 2 MG/ML SYRINGE IVP ONE (17:30)
[2020-10-11] MEDS ORDERED: PIPERACILLIN SODIUM/TAZOBACTAM 2.25 GM in DEXTROSE 5%-WATER 50 ML IV SCH (17:45)
[2020-10-11] MEDS ORDERED: MORPHINE SULFATE 4 MG/ML SYRINGE IVP ONE (19:30)
[2020-10-11] MEDS ORDERED: ACETAMINOPHEN 325 MG TABLET PO PRN ×2 (19:45→20:00)
[2020-10-11] MEDS ORDERED: ONDANSETRON HCL 4 MG/2 ML VIAL IVP PRN ×2 (19:45→20:00)
[2020-10-11] MEDS ORDERED: 0.9% SODIUM CHLORIDE 10 ML SYRINGE IVP PRN (19:45)
[2020-10-11] MEDS ORDERED: BISACODYL 10 MG RECTAL RECTAL SUPPOSITORY PR PRN (20:00)
[2020-10-11] MEDS ORDERED: MAGNESIUM HYDROXIDE SUSPENSION 30 ML UDCUP PO PRN (20:00)
[2020-10-11] MEDS ORDERED: ZOLPIDEM TARTRATE 5 MG TABLET PO PRN (20:00)
[2020-10-11] MEDS ORDERED: SODIUM CHLORIDE 0.9% 1,000 ML IV ONE (20:00)
[2020-10-11 22:34] VITALS: BP 146/73
[2020-10-11] MEDS: HEPARIN SODIUM,PORCINE 5,000 UNITS/ML VIAL SQ SCH (23:21)
[2020-10-11] MEDS: DOCUSATE SODIUM 100 MG CAPSULE PO SCH (23:21)
[2020-10-11] MEDS: PIPERACILLIN SODIUM/TAZOBACTAM 2.25 GM in DEXTROSE 5%-WATER 50 ML IV SCH (23:31)
[2020-10-12 04:26] VITALS: BP 121/56
[2020-10-12] MEDS: PIPERACILLIN SODIUM/TAZOBACTAM 2.25 GM in DEXTROSE 5%-WATER 50 ML IV SCH ×4 (06:42→23:12)
[2020-10-12] MEDS: HYDROmorphone 2 MG/ML VIAL IVP PRN ×3 (06:50→22:58)
[2020-10-12] MEDS: DOCUSATE SODIUM 100 MG CAPSULE PO SCH ×2 (07:48→19:52)
[2020-10-12] MEDS: PANTOPRAZOLE SODIUM 40 MG DR TABLET PO SCH (07:48)
[2020-10-12] MEDS: HEPARIN SODIUM,PORCINE 5,000 UNITS/ML VIAL SQ SCH (07:49)
[2020-10-12 07:58] VITALS: BP 128/58
[2020-10-12] MEDS ORDERED: SODIUM CHLORIDE 0.9% 500 ML IV ONE (11:15)
[2020-10-12 15:39] VITALS: BP 119/59
[2020-10-12] MEDS ORDERED: CALCIUM CARBONATE 500 MG CHEWABLE TABLET CHEW PRN ×2 (17:45→23:45)
[2020-10-12 19:35] VITALS: BP 120/74
[2020-10-12] MEDS: QUEtiapine FUMARATE 100 MG TABLET PO SCH (19:52)
[2020-10-12] MEDS: CALCIUM CARBONATE 500 MG CHEWABLE TABLET CHEW PRN (20:38)
[2020-10-12 23:02] VITALS: BP 98/54
[2020-10-13 00:10] VITALS: BP 113/59
[2020-10-13 03:28] VITALS: BP 131/66
[2020-10-13] MEDS: PIPERACILLIN SODIUM/TAZOBACTAM 2.25 GM in DEXTROSE 5%-WATER 50 ML IV SCH ×3 (05:45→18:29)
[2020-10-13 07:19] LABS: BASOPHILS % (AUTO) 0.7 % (0.0-2.0); EOSINOPHILS % (AUTO) 4.3 % (1.0-6.0); HEMATOCRIT 27.9 % (36-46); HEMOGLOBIN 9.3 g/dL (12.0-16.0); LYMPHOCYTES # (AUTO) 2.2 K/uL (1.0-4.8); LYMPHOCYTES % (AUTO) 28.3 % (22.0-44.0); MEAN CORPUSCULAR HEMOGLOBIN 31.7 pg (26.0-34.0); MEAN CORPUSCULAR HGB CONC 33.3 G/dL (31.0-37.0); MEAN CORPUSCULAR VOLUME 95 fL (80-100); MONOCYTES # (AUTO) 0.7 K/uL (0.1-1.0); MONOCYTES % (AUTO) 8.6 % (2.0-9.0); NEUTROPHILS # (AUTO) 4.5 K/uL (1.8-7.7); NEUTROPHILS % (AUTO) 58.1 % (40.0-70.0); PLATELET COUNT (AUTO) 294 K/uL (150-450); RED BLOOD CELL COUNT(AUTO) 2.94 MIL/uL (4.00-5.20); RED CELL DISTRIBUTION WIDTH 13.4 % (11.5-14.5)
[2020-10-13 07:32] LABS: CALCIUM, TOTAL 9.6 mg/dL (8.8-10.5); CREATININE 1.76 mg/dL (0.60-1.30); POTASSIUM 4.8 mmol/L (3.5-5.1)
[2020-10-13 08:00] VITALS: BP 109/56
[2020-10-13] MEDS: DOCUSATE SODIUM 100 MG CAPSULE PO SCH ×2 (08:30→19:59)
[2020-10-13] MEDS: PANTOPRAZOLE SODIUM 40 MG DR TABLET PO SCH (08:30)
[2020-10-13] MEDS ORDERED: SODIUM CHLORIDE 0.9% 1,000 ML IV ONE (11:45)
[2020-10-13] MEDS: CALCIUM CARBONATE 500 MG CHEWABLE TABLET CHEW PRN ×2 (12:12→18:59)
[2020-10-13] MEDS: HYDROCODONE/ACETAMINOPHEN 5-325 MG TABLET PO PRN ×2 (12:13→19:00)
[2020-10-13] MEDS: DULoxetine HCL 60 MG CAPSULE PO SCH (12:44)
[2020-10-13] MEDS ORDERED: OxyCODONE HCL/ACETAMINOPHEN 5-325 MG TABLET PO SCH (16:00)
[2020-10-13] MEDS: BusPIRone HCL 10 MG TABLET PO SCH ×2 (16:10→19:59)
[2020-10-13 16:11] VITALS: BP 115/61
[2020-10-13] MEDS: QUEtiapine FUMARATE 100 MG TABLET PO SCH (19:59)
[2020-10-13 20:00] VITALS: BP 112/56
[2020-10-13] MEDS ORDERED: QUEtiapine FUMARATE 100 MG TABLET PO SCH (21:00)
[2020-10-14 00:20] VITALS: BP 114/46
[2020-10-14] MEDS: PIPERACILLIN SODIUM/TAZOBACTAM 2.25 GM in DEXTROSE 5%-WATER 50 ML IV SCH ×3 (00:22→12:07)
[2020-10-14 02:59] VITALS: BP 144/80
[2020-10-14] MEDS: HYDROCODONE/ACETAMINOPHEN 5-325 MG TABLET PO PRN ×3 (03:17→17:22)
[2020-10-14 05:34] LABS: BASOPHILS % (AUTO) 0.6 % (0.0-2.0); EOSINOPHILS % (AUTO) 5.5 % (1.0-6.0); HEMATOCRIT 26.8 % (36-46); HEMOGLOBIN 8.9 g/dL (12.0-16.0); LYMPHOCYTES # (AUTO) 2.2 K/uL (1.0-4.8); LYMPHOCYTES % (AUTO) 34.3 % (22.0-44.0); MEAN CORPUSCULAR HEMOGLOBIN 31.6 pg (26.0-34.0); MEAN CORPUSCULAR HGB CONC 33.4 G/dL (31.0-37.0); MEAN CORPUSCULAR VOLUME 95 fL (80-100); MONOCYTES # (AUTO) 0.6 K/uL (0.1-1.0); MONOCYTES % (AUTO) 9.4 % (2.0-9.0); NEUTROPHILS # (AUTO) 3.2 K/uL (1.8-7.7); NEUTROPHILS % (AUTO) 50.2 % (40.0-70.0); PLATELET COUNT (AUTO) 264 K/uL (150-450); RED BLOOD CELL COUNT(AUTO) 2.83 MIL/uL (4.00-5.20); RED CELL DISTRIBUTION WIDTH 13.4 % (11.5-14.5)
[2020-10-14 08:05] VITALS: BP 126/68
[2020-10-14] MEDS: DULoxetine HCL 60 MG CAPSULE PO SCH (08:33)
[2020-10-14] MEDS: BusPIRone HCL 10 MG TABLET PO SCH ×2 (08:33→16:00)
[2020-10-14] MEDS: PANTOPRAZOLE SODIUM 40 MG DR TABLET PO SCH (08:33)
[2020-10-14] MEDS: DOCUSATE SODIUM 100 MG CAPSULE PO SCH (08:56)
[2020-10-14 12:26] LABS: COVID AG,FIA SOURCE NASOPHARYNGEAL
[2020-10-14] MEDS ORDERED: CEFOTETAN IVPB (13:36)
[2020-10-14 15:42] VITALS: BP 117/76
[2020-10-14 17:25] VITALS: BP 143/80
[2020-10-14] MEDS ORDERED: CefoTEtan DISOD 1 GM/DEXTROSE 50 ML IV SCH (18:00)
== END 2020-10-14 17:47 | DRG 690 ==
LOC: EMS 14:55 → 6N 19:53
PROVIDERS: ADMIT Internal Medicine; ATTEND Internal Medicine
DX: N39.0 Urinary tract infection, site not specified (principal); N17.9 Acute kidney failure, unspecified; E87.1 Hypo-osmolality and hyponatremia; Z16.12 Extended spectrum beta lactamase (ESBL) resistance; N20.0 Calculus of kidney; E78.5 Hyperlipidemia, unspecified; I12.9 Hypertensive chronic kidney disease with stage 1 through stage 4 chronic kidney disease, or unspecified chronic kidney disease; J44.9 Chronic obstructive pulmonary disease, unspecified; K21.9 Gastro-esophageal reflux disease without esophagitis; I25.10 Atherosclerotic heart disease of native coronary artery without angina pectoris; G89.29 Other chronic pain; E66.9 Obesity, unspecified; E03.9 Hypothyroidism, unspecified; D63.8 Anemia in other chronic diseases classified elsewhere; M19.90 Unspecified osteoarthritis, unspecified site; N18.9 Chronic kidney disease, unspecified; Z20.822 Contact with and (suspected) exposure to COVID-19; F32.9 Major depressive disorder, single episode, unspecified; F41.9 Anxiety disorder, unspecified; M54.9 Dorsalgia, unspecified; Z88.8 Allergy status to other drugs, medicaments and biological substances; Z68.32 Body mass index [BMI] 32.0-32.9, adult
CPT/HCPCS: 74176; 83605; 87040; 87086; 87426; 97116; 97161; 97530; 99285; J1170; J1644; J2270; J2543; J3490; J7030; J7060

== ENCOUNTER 2021-07-16 16:48 | Inpatient (IN) | payer MEDICARE, OTHER ==
[~2021-07-16] VITALS: Ht 160 cm; Wt 93.6 kg
[~2021-07-16 16:48] MED LIST changes: +CEFOTETAN IVPB; -DULO-8 PO; +DULO60CA98 PO
[2021-07-16] MEDS ORDERED: ACETAMINOPHEN 500 MG TABLET PO ONE (20:15)
[2021-07-16] MEDS ORDERED: GENTAMICIN 100 MG/NACL ISO-OSM 50 ML IV ONE (20:30)
[2021-07-16 21:06] LABS: BASOPHILS % (AUTO) 0.5 % (0.0-2.0); HEMATOCRIT 29.3 % (36-46); LYMPHOCYTES # (AUTO) 2.6 K/uL (1.0-4.8); LYMPHOCYTES % (AUTO) 40.4 % (22.0-44.0); MEAN CORPUSCULAR HEMOGLOBIN 33.2 pg (26.0-34.0); MEAN CORPUSCULAR HGB CONC 34.2 G/dL (31.0-37.0); MEAN CORPUSCULAR VOLUME 97 fL (80-100); MONOCYTES # (AUTO) 0.5 K/uL (0.1-1.0); MONOCYTES % (AUTO) 7.1 % (2.0-9.0); NEUTROPHILS # (AUTO) 3.2 K/uL (1.8-7.7); PLATELET COUNT (AUTO) 249 K/uL (150-450); RED BLOOD CELL COUNT(AUTO) 3.02 MIL/uL (4.00-5.20); RED CELL DISTRIBUTION WIDTH 12.4 % (11.5-14.5)
[2021-07-16 21:09] LABS: ALBUMIN 3.6 g/dL (3.4-5.0); BILIRUBIN,TOTAL 0.3 mg/dL (0.1-1.0); CALCIUM, TOTAL 9.5 mg/dL (8.8-10.5); CREATININE 1.75 mg/dL (0.60-1.30); POTASSIUM 4.7 mmol/L (3.5-5.1); TOTAL PROTEIN, SERUM 7.3 g/dL (6.4-8.2)
[2021-07-16 21:24] LABS: COVID AG,FIA SOURCE NASOPHARYNGEAL
[2021-07-16] MEDS ORDERED: SODIUM CHLORIDE 3% 500 ML IV ONE (21:30)
[2021-07-16] MEDS ORDERED: ONDANSETRON HCL 4 MG/2 ML VIAL IVP PRN ×2 (21:30→23:45)
[2021-07-16] MEDS ORDERED: 0.9% SODIUM CHLORIDE 10 ML SYRINGE IVP PRN (21:30)
[2021-07-16] MEDS ORDERED: ACETAMINOPHEN 325 MG TABLET PO PRN (21:30)
[2021-07-16 22:12] LABS: THYROID STIMULATING HORMONE 1.16 uIU/mL (0.36-3.74)
[2021-07-16 22:44] LABS: POTASSIUM,URINE RANDOM 10 mmol/L (12-75); SODIUM,URINE RANDOM 44 mmol/l (20-110)
[2021-07-16 22:45] LABS: APPEARANCE,URINE CLEAR (CLEAR); BILIRUBIN,URINE NEGATIVE (NEGATIVE); GLUCOSE, URINE (UA) NEGATIVE (NEGATIVE); KETONES,URINE NEGATIVE (NEGATIVE); LEUKOCYTE ESTERASE ,URINE NEGATIVE (NEGATIVE); NITRATE,URINE NEGATIVE (NEGATIVE); OCCULT BLOOD,URINE NEGATIVE (NEGATIVE); PH,URINE 6.5 (5.0-8.0); PROTEIN,URINE NEGATIVE (NEGATIVE); UROBILINOGEN,URINE 0.2 mg/dL (<=1.0)
[2021-07-16] MEDS ORDERED: MAGNESIUM HYDROXIDE SUSPENSION 30 ML UDCUP PO PRN (23:45)
[2021-07-16] MEDS ORDERED: BISACODYL 10 MG RECTAL RECTAL SUPPOSITORY PR PRN (23:45)
[2021-07-16] MEDS ORDERED: ALBUTEROL SULFATE 2.5 MG/0.5 ML NEB SOLUTION NEB PRN (23:45)
[2021-07-16] MEDS ORDERED: IPRATROPIUM BROMIDE 0.5 MG/2.5 ML NEB SOLUTION NEB PRN (23:45)
[2021-07-17] MEDS: HEPARIN SODIUM,PORCINE 5,000 UNITS/ML VIAL SQ SCH ×4 (01:31→23:31)
[2021-07-17 06:32] LABS: BASOPHILS % (AUTO) 0.7 % (0.0-2.0); EOSINOPHILS % (AUTO) 3.8 % (1.0-6.0); HEMATOCRIT 32.9 % (36-46); HEMOGLOBIN 11.3 g/dL (12.0-16.0); LYMPHOCYTES # (AUTO) 3.3 K/uL (1.0-4.8); MEAN CORPUSCULAR HEMOGLOBIN 33.4 pg (26.0-34.0); MEAN CORPUSCULAR HGB CONC 34.3 G/dL (31.0-37.0); MEAN CORPUSCULAR VOLUME 97 fL (80-100); MONOCYTES # (AUTO) 0.7 K/uL (0.1-1.0); MONOCYTES % (AUTO) 9.4 % (2.0-9.0); NEUTROPHILS # (AUTO) 2.8 K/uL (1.8-7.7); NEUTROPHILS % (AUTO) 40.1 % (40.0-70.0); PLATELET COUNT (AUTO) 250 K/uL (150-450); RED BLOOD CELL COUNT(AUTO) 3.38 MIL/uL (4.00-5.20); RED CELL DISTRIBUTION WIDTH 12.8 % (11.5-14.5)
[2021-07-17 07:13] LABS: ALBUMIN 3.5 g/dL (3.4-5.0); BILIRUBIN,TOTAL 0.4 mg/dL (0.1-1.0); CALCIUM, TOTAL 9.7 mg/dL (8.8-10.5); CREATININE 1.65 mg/dL (0.60-1.30); POTASSIUM 4.4 mmol/L (3.5-5.1); TOTAL PROTEIN, SERUM 7.4 g/dL (6.4-8.2)
[2021-07-17] MEDS ORDERED: PANTOPRAZOLE SODIUM 40 MG/VIAL IVP SCH (09:00)
[2021-07-17] MEDS: HydrALAZINE HCL 25 MG TABLET PO SCH ×2 (09:05→20:56)
[2021-07-17] MEDS: PANTOPRAZOLE SODIUM 40 MG DR TABLET PO SCH (09:05)
[2021-07-17] MEDS: ATORVASTATIN CALCIUM 20 MG TABLET PO SCH (09:05)
[2021-07-17] MEDS: CLOPIDOGREL BISULFATE 75 MG TABLET PO SCH (09:05)
[2021-07-17] MEDS: DOCUSATE SODIUM 100 MG CAPSULE PO SCH ×2 (09:05→20:57)
[2021-07-17] MEDS: DULoxetine HCL 60 MG CAPSULE PO SCH (11:44)
[2021-07-17] MEDS: BusPIRone HCL 10 MG TABLET PO SCH ×3 (11:45→22:54)
[2021-07-17] MEDS: SODIUM CHLORIDE 1 GM TABLET PO SCH ×2 (15:33→20:57)
[2021-07-17 21:18] VITALS: BP 104/70
[2021-07-17] MEDS ORDERED: INFLUENZA VIRUS VACCINE QVS 2021-22 (6MO+)/PF 60 MCG/0.5 ML SYRINGE IM. ONE (22:45)
[2021-07-17] MEDS: ZOLPIDEM TARTRATE 5 MG TABLET PO PRN (22:54)
[2021-07-17] MEDS: QUEtiapine FUMARATE 100 MG TABLET PO SCH (22:54)
[2021-07-17] MEDS ORDERED: SODIUM CHLORIDE 0.9% 250 ML IV ONE (23:51)
[2021-07-17] MEDS ORDERED: SODIUM CHLORIDE 0.9% 500 ML IV ONE (23:52)
[2021-07-17 23:54] VITALS: BP 77/42
[2021-07-18] VITALS (8 sets, daily range): BP systolic 83–119; BP diastolic 31–63
[2021-07-18] MEDS ORDERED: SODIUM CHLORIDE 0.9% 250 ML IV ONE
[2021-07-18 07:13] LABS: CALCIUM, TOTAL 9.1 mg/dL (8.8-10.5); CREATININE 2.09 mg/dL (0.60-1.30); MAGNESIUM 2.3 mg/dL (1.80-2.40); PHOSPHORUS 4.5 mg/dL (2.5-4.9); POTASSIUM 4.4 mmol/L (3.5-5.1)
[2021-07-18] MEDS: HydrALAZINE HCL 25 MG TABLET PO SCH (09:00)
[2021-07-18] MEDS: HEPARIN SODIUM,PORCINE 5,000 UNITS/ML VIAL SQ SCH ×3 (09:08→22:14)
[2021-07-18] MEDS: CLOPIDOGREL BISULFATE 75 MG TABLET PO SCH (09:09)
[2021-07-18] MEDS: ATORVASTATIN CALCIUM 20 MG TABLET PO SCH (09:09)
[2021-07-18] MEDS: PANTOPRAZOLE SODIUM 40 MG DR TABLET PO SCH (09:09)
[2021-07-18] MEDS: ACETAMINOPHEN 325 MG TABLET PO PRN ×3 (09:09→22:11)
[2021-07-18] MEDS: DOCUSATE SODIUM 100 MG CAPSULE PO SCH ×2 (09:09→21:55)
[2021-07-18] MEDS: BusPIRone HCL 10 MG TABLET PO SCH ×3 (09:09→21:55)
[2021-07-18] MEDS: SODIUM CHLORIDE 1 GM TABLET PO SCH ×3 (09:10→21:55)
[2021-07-18] MEDS: DULoxetine HCL 60 MG CAPSULE PO SCH (09:10)
[2021-07-18] MEDS: QUEtiapine FUMARATE 100 MG TABLET PO SCH (21:55)
[2021-07-18] MEDS: ZOLPIDEM TARTRATE 5 MG TABLET PO PRN (22:11)
[2021-07-19] MEDS ORDERED: SODIUM CHLORIDE 0.9% 1,000 ML IV ONE
[2021-07-19] MEDS ORDERED: SODIUM CHLORIDE 0.9% 250 ML IV ONE
[2021-07-19 03:36] VITALS: BP 98/54
[2021-07-19 06:05] LABS: APPEARANCE,URINE CLEAR (CLEAR); BILIRUBIN,URINE NEGATIVE (NEGATIVE); GLUCOSE, URINE (UA) NEGATIVE (NEGATIVE); KETONES,URINE NEGATIVE (NEGATIVE); LEUKOCYTE ESTERASE ,URINE NEGATIVE (NEGATIVE); OCCULT BLOOD,URINE NEGATIVE (NEGATIVE); PH,URINE 5.5 (5.0-8.0); PROTEIN,URINE NEGATIVE (NEGATIVE); UROBILINOGEN,URINE 0.2 mg/dL (<=1.0)
[2021-07-19 06:28] LABS: NITRATE,URINE POSITIVE (NEGATIVE)
[2021-07-19 06:29] LABS: BACTERIA,URINE Moderate /HPF (None Seen); RBC,URINE None Seen /HPF (0-2)
[2021-07-19 07:40] VITALS: BP 121/58
[2021-07-19 09:19] LABS: CALCIUM, TOTAL 9.1 mg/dL (8.8-10.5); CREATININE 1.89 mg/dL (0.60-1.30); POTASSIUM 4.4 mmol/L (3.5-5.1)
[2021-07-19] MEDS: CLOPIDOGREL BISULFATE 75 MG TABLET PO SCH (09:31)
[2021-07-19] MEDS: PANTOPRAZOLE SODIUM 40 MG DR TABLET PO SCH (09:31)
[2021-07-19] MEDS: ACETAMINOPHEN 325 MG TABLET PO PRN (09:31)
[2021-07-19] MEDS: SODIUM CHLORIDE 1 GM TABLET PO SCH ×2 (09:31→16:22)
[2021-07-19] MEDS: DULoxetine HCL 60 MG CAPSULE PO SCH (09:31)
[2021-07-19] MEDS: BusPIRone HCL 10 MG TABLET PO SCH ×3 (09:31→20:12)
[2021-07-19] MEDS: ATORVASTATIN CALCIUM 20 MG TABLET PO SCH (09:31)
[2021-07-19] MEDS: HEPARIN SODIUM,PORCINE 5,000 UNITS/ML VIAL SQ SCH ×3 (09:32→23:51)
[2021-07-19 10:57] LABS: EOSINOPHILS % (AUTO) 4.9 % (1.0-6.0); HEMATOCRIT 30.2 % (36-46); HEMOGLOBIN 10.2 g/dL (12.0-16.0); LYMPHOCYTES # (AUTO) 2.3 K/uL (1.0-4.8); LYMPHOCYTES % (AUTO) 44.1 % (22.0-44.0); MEAN CORPUSCULAR HEMOGLOBIN 33.5 pg (26.0-34.0); MEAN CORPUSCULAR HGB CONC 33.6 G/dL (31.0-37.0); MEAN CORPUSCULAR VOLUME 100 fL (80-100); MONOCYTES # (AUTO) 0.3 K/uL (0.1-1.0); MONOCYTES % (AUTO) 6.5 % (2.0-9.0); NEUTROPHILS # (AUTO) 2.3 K/uL (1.8-7.7); NEUTROPHILS % (AUTO) 43.5 % (40.0-70.0); PLATELET COUNT (AUTO) 248 K/uL (150-450); RED BLOOD CELL COUNT(AUTO) 3.03 MIL/uL (4.00-5.20); RED CELL DISTRIBUTION WIDTH 13.1 % (11.5-14.5)
[2021-07-19 14:46] VITALS: BP 108/54
[2021-07-19] MEDS: QUEtiapine FUMARATE 100 MG TABLET PO SCH (20:12)
[2021-07-19] MEDS: CEPHALEXIN MONOHYDRATE 500 MG CAPSULE PO SCH (20:13)
[2021-07-19 20:14] VITALS: BP 110/56
[2021-07-19 23:51] VITALS: BP 96/57
[2021-07-20 03:57] VITALS: BP 95/68
[2021-07-20 05:58] VITALS: BP 100/70
[2021-07-20 07:30] VITALS: BP 120/47
[2021-07-20] MEDS: CLOPIDOGREL BISULFATE 75 MG TABLET PO SCH (07:49)
[2021-07-20] MEDS: PANTOPRAZOLE SODIUM 40 MG DR TABLET PO SCH (07:49)
[2021-07-20] MEDS: HEPARIN SODIUM,PORCINE 5,000 UNITS/ML VIAL SQ SCH ×2 (07:49→16:00)
[2021-07-20] MEDS: BusPIRone HCL 10 MG TABLET PO SCH ×2 (07:49→16:08)
[2021-07-20] MEDS: ATORVASTATIN CALCIUM 20 MG TABLET PO SCH (07:49)
[2021-07-20] MEDS: DULoxetine HCL 60 MG CAPSULE PO SCH (07:49)
[2021-07-20] MEDS: CEPHALEXIN MONOHYDRATE 500 MG CAPSULE PO SCH (07:50)
[2021-07-20 08:11] LABS: BASOPHILS % (AUTO) 0.8 % (0.0-2.0); EOSINOPHILS % (AUTO) 6.1 % (1.0-6.0); HEMATOCRIT 28.2 % (36-46); HEMOGLOBIN 9.6 g/dL (12.0-16.0); LYMPHOCYTES # (AUTO) 2.7 K/uL (1.0-4.8); LYMPHOCYTES % (AUTO) 48.9 % (22.0-44.0); MEAN CORPUSCULAR HEMOGLOBIN 33.7 pg (26.0-34.0); MEAN CORPUSCULAR HGB CONC 34.1 G/dL (31.0-37.0); MEAN CORPUSCULAR VOLUME 99 fL (80-100); MONOCYTES # (AUTO) 0.4 K/uL (0.1-1.0); MONOCYTES % (AUTO) 7.4 % (2.0-9.0); NEUTROPHILS % (AUTO) 36.8 % (40.0-70.0); PLATELET COUNT (AUTO) 251 K/uL (150-450); RED BLOOD CELL COUNT(AUTO) 2.86 MIL/uL (4.00-5.20)
[2021-07-20 08:21] LABS: CALCIUM, TOTAL 9.4 mg/dL (8.8-10.5); CREATININE 1.81 mg/dL (0.60-1.30); MAGNESIUM 2.2 mg/dL (1.80-2.40); POTASSIUM 4.9 mmol/L (3.5-5.1)
[2021-07-20] MEDS ORDERED: CEPH500C2 PO (11:29)
[2021-07-20 12:30] VITALS: BP 134/47
[2021-07-20] MEDS: ACETAMINOPHEN 325 MG TABLET PO PRN (13:47)
[2021-07-20] MEDS ORDERED: FOLI0.8C PO (14:28)
[2021-07-20] MEDS ORDERED: ACET160L45 PO (14:28)
[2021-07-20] MEDS ORDERED: XALA2.5OS OU (14:28)
[2021-07-20] MEDS ORDERED: PANT-31 PO (14:28)
[2021-07-20] MEDS ORDERED: ATOR40TA71 PO (14:28)
[2021-07-20] MEDS ORDERED: LACT1.5C PO (14:28)
[2021-07-20] MEDS ORDERED: OLOP2.5D16 OU (14:28)
[2021-07-20] MEDS ORDERED: QUET100T PO (14:28)
[2021-07-20] MEDS ORDERED: HYDR25TA2 PO (14:28)
[2021-07-20] MEDS ORDERED: DOCU100C33 PO (14:28)
[2021-07-20] MEDS ORDERED: CRAN1CAP5 PO (14:28)
[2021-07-20] MEDS ORDERED: LISI-662 PO (14:28)
[2021-07-20] MEDS ORDERED: FAMO1TAB PO (14:28)
[2021-07-20] MEDS ORDERED: ACET-66 PO (14:28)
[2021-07-20] MEDS ORDERED: MULT-13 PO (14:28)
[2021-07-20] MEDS ORDERED: CLOP75TA14 PO (14:37)
[2021-07-20] MEDS ORDERED: FERR-89 PO (14:37)
[2021-07-20] MEDS ORDERED: MECL25TA39 PO (14:37)
[2021-07-20] MEDS ORDERED: LACT10SO75 PO (14:37)
[2021-07-20] MEDS ORDERED: ALBU8.5H8 IH (14:37)
[2021-07-20] MEDS ORDERED: PRIM50TA23 PO (14:37)
[2021-07-20] MEDS ORDERED: DULO60CA98 PO (14:37)
[2021-07-20] MEDS ORDERED: ACET-784 PO (14:40)
[2021-07-20] MEDS ORDERED: BACTDSB PO (15:10)
[2021-07-20] MEDS ORDERED: CEPH250S35 PO (15:10)
[2021-07-20 16:11] VITALS: BP 129/74
[2021-07-20] MEDS ORDERED: BUSP15 PO (17:33)
[2021-07-20] MEDS ORDERED: CEPH500C3 PO (17:34)
== END 2021-07-20 18:05 | disposition home or self-care (01) | DRG 643 ==
LOC: EMS 16:50 → 5S 07-17 19:46
PROVIDERS: ADMIT Hospitalist; ATTEND Hospitalist
DX: E22.2 Syndrome of inappropriate secretion of antidiuretic hormone (principal); K85.90 Acute pancreatitis without necrosis or infection, unspecified; I13.0 Hypertensive heart and chronic kidney disease with heart failure and stage 1 through stage 4 chronic kidney disease, or unspecified chronic kidney disease; I50.32 Chronic diastolic (congestive) heart failure; N12 Tubulo-interstitial nephritis, not specified as acute or chronic; J44.9 Chronic obstructive pulmonary disease, unspecified; D64.9 Anemia, unspecified; E05.90 Thyrotoxicosis, unspecified without thyrotoxic crisis or storm; N18.31 Chronic kidney disease, stage 3a; E78.5 Hyperlipidemia, unspecified; E86.0 Dehydration; F32.A Depression, unspecified; F41.9 Anxiety disorder, unspecified; K21.9 Gastro-esophageal reflux disease without esophagitis; Z20.822 Contact with and (suspected) exposure to COVID-19; I25.10 Atherosclerotic heart disease of native coronary artery without angina pectoris; Z82.49 Family history of ischemic heart disease and other diseases of the circulatory system; Z86.73 Personal history of transient ischemic attack (TIA), and cerebral infarction without residual deficits; Z87.440 Personal history of urinary (tract) infections; Z87.442 Personal history of urinary calculi; Z90.5 Acquired absence of kidney; Z95.5 Presence of coronary angioplasty implant and graft; Z88.6 Allergy status to analgesic agent; Z88.5 Allergy status to narcotic agent; Z79.899 Other long term (current) drug therapy; Z87.891 Personal history of nicotine dependence; Z71.6 Tobacco abuse counseling
CPT/HCPCS: 74176; 76770; 80048; 80053; 81001; 81003; 82533; 83690; 83735; 83930; 83935; 84100; 84133; 84300; 84443; 85025; 87086; 90686; 93005; 96361; 96365; 99285; J1580; J1644; J7030; J7040; J7050; 36415-L1; 36415-TC; G0008

== ENCOUNTER 2022-01-27 10:01 | Inpatient (IN) | payer MEDICARE, OTHER ==
[~2022-01-27] VITALS: Ht 154.9 cm; Wt 102.0 kg
[~2022-01-27 10:01] MED LIST changes: +ACET-66 PO; +ACET-784 PO; +ALBU8.5H8 IH; -ATOR20TA86 PO; +ATOR40TA71 PO; -AUD NEB; +BACTDSB PO; +BUSP15 PO; -CEFOTETAN IVPB; +CEPH-558 PO; +CEPH250S35 PO; +CEPH500C2 PO; +CRAN1CAP5 PO; +DOCU100C33 PO; +DULO-113 PO; -DULO60CA98 PO; +FAMO1TAB PO; +FERR325T27 PO; +FOLI0.8C PO; +LACT1.5C PO; +LACT10SO75 PO; +LISI-662 PO; +MECL25TA39 PO; +MULT-14 PO; +OLOP2.5D16 OU; +PRIM50TA23 PO; +XALA2.5OS OU
[2022-01-27 12:12] LABS: BASOPHILS % (AUTO) 0.3 % (0.0-2.0); EOSINOPHILS % (AUTO) 2.6 % (1.0-6.0); HEMATOCRIT 29.1 % (36-46); HEMOGLOBIN 9.8 g/dL (12.0-16.0); LYMPHOCYTES # (AUTO) 2.3 K/uL (1.0-4.8); LYMPHOCYTES % (AUTO) 28.8 % (22.0-44.0); MEAN CORPUSCULAR HGB CONC 33.8 G/dL (31.0-37.0); MEAN CORPUSCULAR VOLUME 101 fL (80-100); MONOCYTES # (AUTO) 0.5 K/uL (0.1-1.0); MONOCYTES % (AUTO) 6.7 % (2.0-9.0); NEUTROPHILS % (AUTO) 61.6 % (40.0-70.0); PLATELET COUNT (AUTO) 233 K/uL (150-450); RED BLOOD CELL COUNT(AUTO) 2.89 MIL/uL (4.00-5.20); RED CELL DISTRIBUTION WIDTH 13.2 % (11.5-14.5)
[2022-01-27 12:13] LABS: BILIRUBIN,URINE NEGATIVE (NEGATIVE); GLUCOSE, URINE (UA) NEGATIVE (NEGATIVE); KETONES,URINE NEGATIVE (NEGATIVE); LEUKOCYTE ESTERASE ,URINE LARGE (NEGATIVE); NITRATE,URINE POSITIVE (NEGATIVE); OCCULT BLOOD,URINE NEGATIVE (NEGATIVE); PH,URINE 5.5 (5.0-8.0); PROTEIN,URINE NEGATIVE (NEGATIVE); SPECIFIC GRAVITIY, URINE 1.009 (1.003-1.030); UROBILINOGEN,URINE <=1.0 mg/dL (<=1.0)
[2022-01-27 12:14] LABS: APPEARANCE,URINE SLIGHTLY CLOUDY (CLEAR)
[2022-01-27 12:19] LABS: BACTERIA,URINE Many /HPF (None Seen); RBC,URINE None Seen /HPF (0-2); WBC,URINE 51-100 /HPF (0-5)
[2022-01-27 12:33] LABS: ALBUMIN 3.3 g/dL (3.4-5.0); BILIRUBIN,TOTAL 0.2 mg/dL (0.1-1.0); CALCIUM, TOTAL 9.6 mg/dL (8.8-10.5); CREATININE 1.69 mg/dL (0.60-1.30); POTASSIUM 4.3 mmol/L (3.5-5.1); TOTAL PROTEIN, SERUM 7.2 g/dL (6.4-8.2)
[2022-01-27] MEDS ORDERED: SODIUM CHLORIDE 0.9% 1,000 ML IV ONE ×2 (12:45→16:45)
[2022-01-27] MEDS ORDERED: HYDROCODONE/ACETAMINOPHEN 5-325 MG TABLET PO ONE (14:15)
[2022-01-27] MEDS ORDERED: PIPERACILLIN/TAZO 3.375 GM/D5W 50 ML IV ONE (15:45)
[2022-01-27] MEDS ORDERED: ZOLPIDEM TARTRATE 5 MG TABLET PO PRN (16:45)
[2022-01-27] MEDS ORDERED: MAGNESIUM HYDROXIDE SUSPENSION 30 ML UDCUP PO PRN (16:45)
[2022-01-27] MEDS ORDERED: MORPHINE SULFATE 2 MG/ML SYRINGE IVP PRN (16:45)
[2022-01-27] MEDS ORDERED: BISACODYL 10 MG RECTAL RECTAL SUPPOSITORY PR PRN (16:45)
[2022-01-27] MEDS ORDERED: ONDANSETRON HCL 4 MG/2 ML VIAL IVP PRN (16:45)
[2022-01-27 18:47] LABS: COVID AG,FIA SOURCE NASAL SWAB
[2022-01-27] MEDS: HydrALAZINE HCL 25 MG TABLET PO SCH (20:31)
[2022-01-27] MEDS: DOCUSATE SODIUM 100 MG CAPSULE PO SCH (21:17)
[2022-01-27] MEDS: LACTULOSE 20 GM/30 ML SOLUTION UDCUP PO SCH (21:17)
[2022-01-28] MEDS: PIPERACILLIN SODIUM/TAZOBACTAM 2.25 GM in DEXTROSE 5%-WATER 50 ML IV SCH ×4 (00:36→17:55)
[2022-01-28 01:43] VITALS: BP 118/63
[2022-01-28] MEDS: HEPARIN SODIUM,PORCINE 5,000 UNITS/ML VIAL SQ SCH ×3 (01:56→16:40)
[2022-01-28] MEDS: ACETAMINOPHEN 325 MG TABLET PO PRN ×2 (04:22→11:54)
[2022-01-28 04:24] VITALS: BP 127/53
[2022-01-28 07:03] LABS: ALBUMIN 3.3 g/dL (3.4-5.0); BILIRUBIN,TOTAL 0.2 mg/dL (0.1-1.0); CALCIUM, TOTAL 9.8 mg/dL (8.8-10.5); CREATININE 1.67 mg/dL (0.60-1.30); POTASSIUM 4.7 mmol/L (3.5-5.1); TOTAL PROTEIN, SERUM 6.7 g/dL (6.4-8.2)
[2022-01-28 07:42] VITALS: BP 121/52
[2022-01-28] MEDS: LISINOPRIL 20 MG TABLET PO SCH (08:08)
[2022-01-28] MEDS: DOCUSATE SODIUM 100 MG CAPSULE PO SCH ×2 (08:08→20:31)
[2022-01-28] MEDS: CLOPIDOGREL BISULFATE 75 MG TABLET PO SCH (08:08)
[2022-01-28] MEDS: LACTULOSE 20 GM/30 ML SOLUTION UDCUP PO SCH ×2 (08:08→20:31)
[2022-01-28] MEDS: HydrALAZINE HCL 25 MG TABLET PO SCH ×2 (08:08→20:31)
[2022-01-28] MEDS: PANTOPRAZOLE SODIUM 40 MG DR TABLET PO SCH (08:08)
[2022-01-28] MEDS: ATORVASTATIN CALCIUM 40 MG TABLET PO SCH (08:08)
[2022-01-28] MEDS: HYDROCODONE/ACETAMINOPHEN 5-325 MG TABLET PO PRN ×3 (08:09→16:40)
[2022-01-28] MEDS ORDERED: MECL-160 PO (09:32)
[2022-01-28] MEDS ORDERED: FOLI0.4T6 PO (09:32)
[2022-01-28] MEDS ORDERED: DOCU-385 PO (09:32)
[2022-01-28] MEDS ORDERED: ATOR40TA28 PO (09:32)
[2022-01-28] MEDS ORDERED: PRIM250T3 PO (09:32)
[2022-01-28] MEDS ORDERED: LACT10SO10 PO (09:32)
[2022-01-28] MEDS ORDERED: LISI-894 PO (09:32)
[2022-01-28 11:20] VITALS: BP 120/62
[2022-01-28 16:16] VITALS: BP 130/67
[2022-01-28] MEDS ORDERED: SODIUM CHLORIDE 0.9% 500 ML IV ONE (17:46)
[2022-01-28 20:00] VITALS: BP 102/57
[2022-01-29] VITALS: BP 102/50
[2022-01-29] MEDS: PIPERACILLIN SODIUM/TAZOBACTAM 2.25 GM in DEXTROSE 5%-WATER 50 ML IV SCH ×3 (00:20→11:44)
[2022-01-29] MEDS: HEPARIN SODIUM,PORCINE 5,000 UNITS/ML VIAL SQ SCH ×2 (00:21→09:24)
[2022-01-29] MEDS: HYDROCODONE/ACETAMINOPHEN 5-325 MG TABLET PO PRN ×2 (01:37→09:02)
[2022-01-29 05:56] VITALS: BP 104/67
[2022-01-29 06:59] LABS: APPEARANCE,URINE CLEAR (CLEAR); GLUCOSE, URINE (UA) NEGATIVE (NEGATIVE); KETONES,URINE NEGATIVE (NEGATIVE); NITRATE,URINE NEGATIVE (NEGATIVE); PH,URINE 6.5 (5.0-8.0); PROTEIN,URINE 30-70 mg/dL (NEGATIVE); SPECIFIC GRAVITIY, URINE 1.032 (1.003-1.030)
[2022-01-29 07:10] LABS: BILIRUBIN,URINE SMALL (NEGATIVE); LEUKOCYTE ESTERASE ,URINE SMALL (NEGATIVE); OCCULT BLOOD,URINE MODERATE (NEGATIVE)
[2022-01-29 07:11] LABS: BACTERIA,URINE None Seen /HPF (None Seen); SQUAMOUS EPITHELIAL CELL,UR Few /LPF (None Seen)
[2022-01-29 08:19] LABS: CALCIUM, TOTAL 9.9 mg/dL (8.8-10.5); CREATININE 1.72 mg/dL (0.60-1.30); POTASSIUM 4.3 mmol/L (3.5-5.1)
[2022-01-29 08:56] VITALS: BP 108/71
[2022-01-29] MEDS: HydrALAZINE HCL 25 MG TABLET PO SCH (09:00)
[2022-01-29] MEDS: ATORVASTATIN CALCIUM 40 MG TABLET PO SCH (09:23)
[2022-01-29] MEDS: CLOPIDOGREL BISULFATE 75 MG TABLET PO SCH (09:23)
[2022-01-29] MEDS: PANTOPRAZOLE SODIUM 40 MG DR TABLET PO SCH (09:23)
[2022-01-29] MEDS: LISINOPRIL 20 MG TABLET PO SCH (09:23)
[2022-01-29] MEDS: LACTULOSE 20 GM/30 ML SOLUTION UDCUP PO SCH (09:24)
[2022-01-29] MEDS: DOCUSATE SODIUM 100 MG CAPSULE PO SCH (09:24)
[2022-01-29] MEDS: ACETAMINOPHEN 325 MG TABLET PO PRN (11:44)
[2022-01-29 12:35] VITALS: BP 112/59
[2022-01-29] MEDS ORDERED: AMOX1TAB15 PO (12:54)
== END 2022-01-29 15:25 | disposition home or self-care (01) | DRG 683 ==
LOC: EMS 10:03 → 5S 23:38
PROVIDERS: ADMIT Internal Medicine; ATTEND Internal Medicine
DX: N17.9 Acute kidney failure, unspecified (principal); E87.1 Hypo-osmolality and hyponatremia; Z68.41 Body mass index [BMI] 40.0-44.9, adult; N10 Acute pyelonephritis; E66.01 Morbid (severe) obesity due to excess calories; D63.8 Anemia in other chronic diseases classified elsewhere; E03.9 Hypothyroidism, unspecified; E78.5 Hyperlipidemia, unspecified; J44.9 Chronic obstructive pulmonary disease, unspecified; Z86.19 Personal history of other infectious and parasitic diseases; I12.9 Hypertensive chronic kidney disease with stage 1 through stage 4 chronic kidney disease, or unspecified chronic kidney disease; F32.A Depression, unspecified; B96.20 Unspecified Escherichia coli [E. coli] as the cause of diseases classified elsewhere; F41.9 Anxiety disorder, unspecified; Z20.822 Contact with and (suspected) exposure to COVID-19; K21.9 Gastro-esophageal reflux disease without esophagitis; N18.9 Chronic kidney disease, unspecified; Z86.73 Personal history of transient ischemic attack (TIA), and cerebral infarction without residual deficits; Z87.442 Personal history of urinary calculi; Z87.891 Personal history of nicotine dependence; Z90.5 Acquired absence of kidney; Z88.5 Allergy status to narcotic agent; Z88.8 Allergy status to other drugs, medicaments and biological substances
CPT/HCPCS: 71045; 74176; 80048; 80053; 81001; 83605; 83690; 84484; 85025; 87040; 87086; 93005; 99285; G0378; J1644; J2270; J2543; J7030; J7040; J7060; 36415-L1; 36415-TC

== ENCOUNTER 2022-04-14 13:59 | Emergency (ER) | payer MEDICARE, OTHER ==
[~2022-04-14] VITALS: Ht 167.6 cm; Wt 106.8 kg
[~2022-04-14 13:59] MED LIST changes: -ACET-66 PO; -ACET-784 PO; +AMOX1TAB15 PO; +ATOR40TA28 PO; -ATOR40TA71 PO; -BACTDSB PO; -BUSP10TA23 PO; -CEPH-558 PO; -CEPH250S35 PO; -CEPH500C2 PO; +DOCU-385 PO; -DOCU100C33 PO; +FOLI0.4T6 PO; -FOLI0.8C PO; +LACT10SO10 PO; -LACT10SO75 PO; -LISI-662 PO; +MECL-160 PO; -MECL25TA39 PO; +PRIM250T3 PO; -PRIM50TA23 PO
[2022-04-14] MEDS ORDERED: SODIUM CHLORIDE 0.9% 1,000 ML IV ONE (15:15)
[2022-04-14] MEDS ORDERED: MORPHINE SULFATE 2 MG/ML SYRINGE IVP ONE (15:15)
[2022-04-14 15:22] LABS: BASOPHILS % (AUTO) 0.6 % (0.0-2.0); EOSINOPHILS % (AUTO) 4.4 % (1.0-6.0); HEMATOCRIT 29.8 % (36-46); HEMOGLOBIN 9.9 g/dL (12.0-16.0); LYMPHOCYTES # (AUTO) 2.9 K/uL (1.0-4.8); LYMPHOCYTES % (AUTO) 32.8 % (22.0-44.0); MEAN CORPUSCULAR HEMOGLOBIN 34.7 pg (26.0-34.0); MEAN CORPUSCULAR HGB CONC 33.3 G/dL (31.0-37.0); MEAN CORPUSCULAR VOLUME 104 fL (80-100); MONOCYTES # (AUTO) 0.6 K/uL (0.1-1.0); MONOCYTES % (AUTO) 6.7 % (2.0-9.0); NEUTROPHILS # (AUTO) 4.8 K/uL (1.8-7.7); NEUTROPHILS % (AUTO) 55.5 % (40.0-70.0); PLATELET COUNT (AUTO) 243 K/uL (150-450); RED BLOOD CELL COUNT(AUTO) 2.85 MIL/uL (4.00-5.20); RED CELL DISTRIBUTION WIDTH 13.1 % (11.5-14.5)
[2022-04-14 15:24] LABS: APPEARANCE,URINE CLEAR (CLEAR); BILIRUBIN,URINE NEGATIVE (NEGATIVE); GLUCOSE, URINE (UA) NEGATIVE (NEGATIVE); KETONES,URINE NEGATIVE (NEGATIVE); LEUKOCYTE ESTERASE ,URINE MODERATE (NEGATIVE); NITRATE,URINE POSITIVE (NEGATIVE); OCCULT BLOOD,URINE NEGATIVE (NEGATIVE); PROTEIN,URINE NEGATIVE (NEGATIVE); SPECIFIC GRAVITIY, URINE 1.005 (1.003-1.030); UROBILINOGEN,URINE <=1.0 mg/dL (<=1.0)
[2022-04-14 15:32] LABS: RBC,URINE 0-2 /HPF (0-2)
[2022-04-14 15:33] LABS: BACTERIA,URINE Many /HPF (None Seen); SQUAMOUS EPITHELIAL CELL,UR Few /LPF (None Seen)
[2022-04-14 15:33] LABS: CALCIUM, TOTAL 9.7 mg/dL (8.8-10.5); CREATININE 1.75 mg/dL (0.60-1.30)
[2022-04-14 15:37] LABS: ALBUMIN 3.5 g/dL (3.4-5.0); BILIRUBIN,TOTAL 0.2 mg/dL (0.1-1.0); TOTAL PROTEIN, SERUM 7.4 g/dL (6.4-8.2)
[2022-04-14] MEDS ORDERED: AMOX1TAB16 PO (16:27)
[2022-04-14 17:00] VITALS: BP 115/62
== END 2022-04-14 17:40 | disposition home or self-care (01) ==
LOC: EMS 14:13
DX: R10.13 Epigastric pain (principal); E03.9 Hypothyroidism, unspecified; F32.9 Major depressive disorder, single episode, unspecified; F41.9 Anxiety disorder, unspecified; J44.9 Chronic obstructive pulmonary disease, unspecified; I10 Essential (primary) hypertension; R10.32 Left lower quadrant pain; R10.31 Right lower quadrant pain; N39.0 Urinary tract infection, site not specified; K59.00 Constipation, unspecified; K21.9 Gastro-esophageal reflux disease without esophagitis; Z86.73 Personal history of transient ischemic attack (TIA), and cerebral infarction without residual deficits
CPT/HCPCS: 99285; 74176; 96374; 71045; 96361; 80053; 81001; 83690; 84484; 85025; 36415; 87086; 93005; J2270; J7030; 87186

== ENCOUNTER 2022-06-25 19:00 | Emergency (ER) | payer MEDICARE, OTHER ==
[~2022-06-25] VITALS: Ht 167.6 cm; Wt 109.1 kg
[~2022-06-25 19:00] MED LIST changes: +AMOX1TAB16 PO
[2022-06-25 20:15] LABS: BASOPHILS % (AUTO) 0.3 % (0.0-2.0); EOSINOPHILS % (AUTO) 2.8 % (1.0-6.0); HEMATOCRIT 28.8 % (36-46); HEMOGLOBIN 9.7 g/dL (12.0-16.0); LYMPHOCYTES # (AUTO) 1.8 K/uL (1.0-4.8); LYMPHOCYTES % (AUTO) 21.6 % (22.0-44.0); MEAN CORPUSCULAR HEMOGLOBIN 34.6 pg (26.0-34.0); MEAN CORPUSCULAR HGB CONC 33.6 G/dL (31.0-37.0); MEAN CORPUSCULAR VOLUME 103 fL (80-100); MONOCYTES # (AUTO) 0.5 K/uL (0.1-1.0); MONOCYTES % (AUTO) 6.2 % (2.0-9.0); NEUTROPHILS # (AUTO) 5.8 K/uL (1.8-7.7); NEUTROPHILS % (AUTO) 69.1 % (40.0-70.0); PLATELET COUNT (AUTO) 239 K/uL (150-450); RED BLOOD CELL COUNT(AUTO) 2.79 MIL/uL (4.00-5.20); RED CELL DISTRIBUTION WIDTH 13.5 % (11.5-14.5)
[2022-06-25 20:35] LABS: LACTIC ACID 0.9 mmol/L (0.4-2.0)
[2022-06-25 20:43] LABS: CALCIUM, TOTAL 10.4 mg/dL (8.8-10.5); CREATININE 1.83 mg/dL (0.60-1.30)
[2022-06-25 20:50] LABS: ALBUMIN 3.5 g/dL (3.4-5.0); BILIRUBIN,TOTAL 0.3 mg/dL (0.1-1.0); TOTAL PROTEIN, SERUM 7.5 g/dL (6.4-8.2)
[2022-06-25 21:14] LABS: APPEARANCE,URINE CLEAR (CLEAR); BILIRUBIN,URINE NEGATIVE (NEGATIVE); GLUCOSE, URINE (UA) NEGATIVE (NEGATIVE); KETONES,URINE NEGATIVE (NEGATIVE); LEUKOCYTE ESTERASE ,URINE MODERATE (NEGATIVE); NITRATE,URINE NEGATIVE (NEGATIVE); OCCULT BLOOD,URINE NEGATIVE (NEGATIVE); PH,URINE 6.5 (5.0-8.0); PROTEIN,URINE NEGATIVE (NEGATIVE); SPECIFIC GRAVITIY, URINE 1.006 (1.003-1.030); UROBILINOGEN,URINE <=1.0 mg/dL (<=1.0)
[2022-06-25 21:36] LABS: BACTERIA,URINE Moderate /HPF (None Seen); RBC,URINE 0-2 /HPF (0-2); SQUAMOUS EPITHELIAL CELL,UR Rare /LPF (None Seen)
[2022-06-25] MEDS: SODIUM CHLORIDE 0.9% 1,000 ML IV ONE (23:53)
[2022-06-26] MEDS: FAMOTIDINE 40 MG in SODIUM CHLORIDE 0.9% 100 ML IV ONE (01:25)
[2022-06-26] MEDS: CEPHALEXIN MONOHYDRATE 500 MG CAPSULE PO ONE (05:27)
[2022-06-26] MEDS ORDERED: CEPH500C2 PO (12:12)
[2022-06-26] MEDS ORDERED: CEPH-558 PO (12:35)
[2022-06-26 14:17] VITALS: BP 132/89
== END 2022-06-26 14:53 | disposition home or self-care (01) ==
LOC: EMS 19:08
DX: R10.11 Right upper quadrant pain (principal); N39.0 Urinary tract infection, site not specified; R10.84 Generalized abdominal pain; Z88.6 Allergy status to analgesic agent
CPT/HCPCS: 99285; 74176; 96365; 96361; 80053; 81001; 83605; 83690; 84484; 85025; 87040; 36415; 87086; 87186; 93005; J3490; J7050

== ENCOUNTER 2022-07-31 13:01 | Inpatient (IN) | payer MEDICARE, OTHER ==
[~2022-07-31] VITALS: Ht 167.6 cm; Wt 107.9 kg
[~2022-07-31 13:01] MED LIST changes: +CEPH-558 PO
[2022-07-31] MEDS ORDERED: SODIUM CHLORIDE 0.9% 1,000 ML IV ONE (13:15)
[2022-07-31 13:38] LABS: BASOPHILS % (AUTO) 0.3 % (0.0-2.0); EOSINOPHILS % (AUTO) 3.4 % (1.0-6.0); HEMATOCRIT 31.4 % (36-46); HEMOGLOBIN 10.4 g/dL (12.0-16.0); LYMPHOCYTES # (AUTO) 1.8 K/uL (1.0-4.8); LYMPHOCYTES % (AUTO) 20.6 % (22.0-44.0); MEAN CORPUSCULAR HEMOGLOBIN 34.7 pg (26.0-34.0); MEAN CORPUSCULAR VOLUME 105 fL (80-100); MONOCYTES # (AUTO) 0.5 K/uL (0.1-1.0); MONOCYTES % (AUTO) 5.6 % (2.0-9.0); NEUTROPHILS % (AUTO) 70.1 % (40.0-70.0); PLATELET COUNT (AUTO) 277 K/uL (150-450); RED BLOOD CELL COUNT(AUTO) 2.98 MIL/uL (4.00-5.20); RED CELL DISTRIBUTION WIDTH 13.1 % (11.5-14.5)
[2022-07-31 14:07] LABS: PROTHROMBIN TIME 10.5 SEC (9.4-11.6)
[2022-07-31 14:19] LABS: POTASSIUM 5.5 mmol/L (3.5-5.1)
[2022-07-31 14:20] LABS: ALBUMIN 3.9 g/dL (3.4-5.0); BILIRUBIN,TOTAL 0.3 mg/dL (0.1-1.0); CALCIUM, TOTAL 9.3 mg/dL (8.8-10.5); CREATININE 4.04 mg/dL (0.60-1.30); TOTAL PROTEIN, SERUM 8.2 g/dL (6.4-8.2)
[2022-07-31] MEDS ORDERED: SODIUM CHLORIDE 1 GM TABLET PO ONE (14:30)
[2022-07-31] MEDS ORDERED: ALBUMIN HUMAN 5%-12.5GM/250ML 250 ML IV ONE (14:45)
[2022-07-31 15:27] LABS: CALCIUM, TOTAL 8.3 mg/dL (8.8-10.5); CREATININE 3.56 mg/dL (0.60-1.30)
[2022-07-31 15:28] LABS: POTASSIUM 5.8 mmol/L (3.5-5.1)
[2022-07-31 16:10] LABS: COVID AG,FIA SOURCE NASAL SWAB
[2022-07-31 16:18] LABS: APPEARANCE,URINE HAZY (CLEAR); BILIRUBIN,URINE NEGATIVE (NEGATIVE); GLUCOSE, URINE (UA) NEGATIVE (NEGATIVE); KETONES,URINE NEGATIVE (NEGATIVE); LEUKOCYTE ESTERASE ,URINE LARGE (NEGATIVE); NITRATE,URINE NEGATIVE (NEGATIVE); OCCULT BLOOD,URINE NEGATIVE (NEGATIVE); PH,URINE 5.5 (5.0-8.0); PROTEIN,URINE 30-70 mg/dL (NEGATIVE); SPECIFIC GRAVITIY, URINE 1.008 (1.003-1.030); UROBILINOGEN,URINE <=1.0 mg/dL (<=1.0)
[2022-07-31] MEDS ORDERED: PHENYLEPHRINE 200 MG/D5%-WATER 250 ML IV PRN (16:30)
[2022-07-31 16:32] LABS: RBC,URINE None Seen /HPF (0-2)
[2022-07-31 16:33] LABS: BACTERIA,URINE Many /HPF (None Seen)
[2022-07-31] MEDS ORDERED: PIPERACILLIN/TAZO 3.375 GM/D5W 50 ML IV ONE (17:30)
[2022-07-31] MEDS ORDERED: SODIUM ZIRCONIUM CYCLOSILICATE 5 GM POWDER PACKET PO ONE (19:00)
[2022-07-31] MEDS: SODIUM CHLORIDE 0.9% 1,000 ML IV SCH (19:40)
[2022-07-31 20:06] LABS: POTASSIUM 5.5 mmol/L (3.5-5.1)
[2022-07-31] MEDS ORDERED: ACETAMINOPHEN 500 MG TABLET PO ONE (20:45)
[2022-07-31] MEDS ORDERED: IPRATROPIUM BROMIDE 0.5 MG/2.5 ML NEB SOLUTION NEB PRN (23:00)
[2022-07-31] MEDS ORDERED: BISACODYL 10 MG RECTAL RECTAL SUPPOSITORY PR PRN (23:00)
[2022-07-31] MEDS ORDERED: MAGNESIUM HYDROXIDE SUSPENSION 30 ML UDCUP PO PRN (23:00)
[2022-07-31] MEDS ORDERED: ONDANSETRON HCL 4 MG/2 ML VIAL IVP PRN (23:00)
[2022-07-31] MEDS ORDERED: ALBUTEROL SULFATE 2.5 MG/0.5 ML NEB SOLUTION NEB PRN (23:00)
[2022-07-31] MEDS: HEPARIN SODIUM,PORCINE 5,000 UNITS/ML VIAL SQ SCH (23:42)
[2022-08-01 00:44] LABS: CALCIUM, TOTAL 8.4 mg/dL (8.8-10.5); CREATININE 3.53 mg/dL (0.60-1.30); POTASSIUM 5.5 mmol/L (3.5-5.1)
[2022-08-01] MEDS: PIPERACILLIN SODIUM/TAZOBACTAM 2.25 GM in DEXTROSE 5%-WATER 50 ML IV SCH ×4 (02:07→18:27)
[2022-08-01 02:43] LABS: GLUCOMETER DEV NAME(LOC) ERT.5; GLUCOSE,POINT OF CARE 87 MG/DL (70-110)
[2022-08-01] MEDS: ACETAMINOPHEN 325 MG TABLET PO PRN ×2 (03:05→09:24)
[2022-08-01 04:09] LABS: APPEARANCE,URINE CLEAR (CLEAR); BILIRUBIN,URINE NEGATIVE (NEGATIVE); GLUCOSE, URINE (UA) NEGATIVE (NEGATIVE); KETONES,URINE NEGATIVE (NEGATIVE); LEUKOCYTE ESTERASE ,URINE LARGE (NEGATIVE); NITRATE,URINE NEGATIVE (NEGATIVE); OCCULT BLOOD,URINE SMALL (NEGATIVE); PH,URINE 5.5 (5.0-8.0); PROTEIN,URINE TRACE mg/dL (NEGATIVE); SPECIFIC GRAVITIY, URINE 1.007 (1.003-1.030); UROBILINOGEN,URINE <=1.0 mg/dL (<=1.0)
[2022-08-01 04:12] LABS: CREATININE,URINE RANDOM 36.1 mg/dL (30.0-125.0); SODIUM,URINE RANDOM 39 mmol/l (20-110); UREA NITROGEN,URINE RANDOM 230 mg/dL (350-1000)
[2022-08-01 04:23] LABS: BACTERIA,URINE Few /HPF (None Seen); SQUAMOUS EPITHELIAL CELL,UR Few /LPF (None Seen); WBC,URINE 26-50 /HPF (0-5)
[2022-08-01 05:31] LABS: CALCIUM, TOTAL 8.7 mg/dL (8.8-10.5); CREATININE 3.19 mg/dL (0.60-1.30); POTASSIUM 5.5 mmol/L (3.5-5.1)
[2022-08-01 05:44] LABS: MAGNESIUM 2.7 mg/dL (1.80-2.40); PHOSPHORUS 5.4 mg/dL (2.5-4.9); THYROID STIMULATING HORMONE 0.42 uIU/mL (0.36-3.74)
[2022-08-01] MEDS ORDERED: FERROUS SULFATE 325 MG EC TABLET PO SCH (08:00)
[2022-08-01] MEDS: FOLIC ACID 1 MG TABLET PO SCH (08:07)
[2022-08-01] MEDS: FAMOTIDINE 20 MG TABLET PO SCH ×2 (08:07→21:39)
[2022-08-01] MEDS: HEPARIN SODIUM,PORCINE 5,000 UNITS/ML VIAL SQ SCH ×2 (08:07→16:15)
[2022-08-01] MEDS: CLOPIDOGREL BISULFATE 75 MG TABLET PO SCH (08:07)
[2022-08-01] MEDS: GABAPENTIN 300 MG CAPSULE PO SCH ×2 (08:07→21:39)
[2022-08-01] MEDS: PRIMIDONE 250 MG TABLET PO SCH (09:24)
[2022-08-01] MEDS: SODIUM CHLORIDE 0.9% 1,000 ML IV SCH ×2 (09:25→22:54)
[2022-08-01 11:00] LABS: CALCIUM, TOTAL 8.2 mg/dL (8.8-10.5); CREATININE 2.98 mg/dL (0.60-1.30); MAGNESIUM 2.4 mg/dL (1.80-2.40); PHOSPHORUS 4.9 mg/dL (2.5-4.9); POTASSIUM 5.3 mmol/L (3.5-5.1)
[2022-08-01] MEDS ORDERED: PHENYLEPHRINE 200 MG/D5%-WATER 250 ML IV PRN (11:15)
[2022-08-01 17:03] LABS: GLUCOSE,POINT OF CARE 99 MG/DL (70-110)
[2022-08-01] MEDS: DOPamine 400MG/D5W[STANDARD] 250 ML IV PRN (18:10)
[2022-08-01] MEDS: QUEtiapine FUMARATE 100 MG TABLET PO SCH (21:39)
[2022-08-01] MEDS: ATORVASTATIN CALCIUM 40 MG TABLET PO SCH (21:39)
[2022-08-01] MEDS: LATANOPROST 0.005% 2.5 ML OPHTHALMIC SOLUTION OU SCH (21:40)
[2022-08-02] MEDS: HEPARIN SODIUM,PORCINE 5,000 UNITS/ML VIAL SQ SCH ×3 (00:23→15:17)
[2022-08-02] MEDS: ACETAMINOPHEN 325 MG TABLET PO PRN ×2 (00:36→14:28)
[2022-08-02] MEDS: PIPERACILLIN SODIUM/TAZOBACTAM 2.25 GM in DEXTROSE 5%-WATER 50 ML IV SCH ×4 (01:36→21:12)
[2022-08-02] MEDS: DOPamine 400MG/D5W[STANDARD] 250 ML IV PRN (02:41)
[2022-08-02] MEDS ORDERED: PHENYLEPHRINE 200 MG/D5%-WATER 250 ML IV PRN (03:45)
[2022-08-02] MEDS ORDERED: DOPamine 400MG/D5W[STANDARD] 250 ML IV PRN (06:15)
[2022-08-02] MEDS: PRIMIDONE 250 MG TABLET PO SCH (08:14)
[2022-08-02] MEDS: FAMOTIDINE 20 MG TABLET PO SCH ×2 (08:14→20:14)
[2022-08-02] MEDS: FOLIC ACID 1 MG TABLET PO SCH (08:14)
[2022-08-02] MEDS: CLOPIDOGREL BISULFATE 75 MG TABLET PO SCH (08:14)
[2022-08-02] MEDS: GABAPENTIN 300 MG CAPSULE PO SCH ×2 (08:14→20:14)
[2022-08-02 09:19] LABS: CALCIUM, TOTAL 9.4 mg/dL (8.8-10.5); CREATININE 2.47 mg/dL (0.60-1.30); MAGNESIUM 2.4 mg/dL (1.80-2.40); PHOSPHORUS 3.6 mg/dL (2.5-4.9); POTASSIUM 4.7 mmol/L (3.5-5.1)
[2022-08-02] MEDS: SODIUM CHLORIDE 0.9% 1,000 ML IV SCH (13:01)
[2022-08-02] MEDS: SODIUM CHLORIDE 1 GM TABLET PO SCH ×2 (15:09→20:14)
[2022-08-02] MEDS: ATORVASTATIN CALCIUM 40 MG TABLET PO SCH (20:14)
[2022-08-02] MEDS: LATANOPROST 0.005% 2.5 ML OPHTHALMIC SOLUTION OU SCH (20:14)
[2022-08-02] MEDS: QUEtiapine FUMARATE 100 MG TABLET PO SCH (20:14)
[2022-08-02] MEDS ORDERED: NOREPINEPHRINE 8 MG/D5%-WATER 250 ML IV PRN (21:45)
[2022-08-03] MEDS: HEPARIN SODIUM,PORCINE 5,000 UNITS/ML VIAL SQ SCH ×3 (00:19→15:49)
[2022-08-03] MEDS: PIPERACILLIN SODIUM/TAZOBACTAM 2.25 GM in DEXTROSE 5%-WATER 50 ML IV SCH ×4 (03:38→22:44)
[2022-08-03] MEDS: SODIUM CHLORIDE 0.9% 1,000 ML IV SCH ×2 (03:45→18:31)
[2022-08-03 08:17] LABS: ALBUMIN 3.1 g/dL (3.4-5.0); BILIRUBIN,TOTAL 0.4 mg/dL (0.1-1.0); CALCIUM, TOTAL 9.3 mg/dL (8.8-10.5); CREATININE 2.44 mg/dL (0.60-1.30); POTASSIUM 4.6 mmol/L (3.5-5.1); TOTAL PROTEIN, SERUM 7.1 g/dL (6.4-8.2)
[2022-08-03] MEDS: SODIUM CHLORIDE 1 GM TABLET PO SCH ×3 (08:37→21:15)
[2022-08-03] MEDS: FOLIC ACID 1 MG TABLET PO SCH (08:37)
[2022-08-03] MEDS: CLOPIDOGREL BISULFATE 75 MG TABLET PO SCH (08:37)
[2022-08-03] MEDS: FAMOTIDINE 20 MG TABLET PO SCH ×2 (08:37→21:15)
[2022-08-03] MEDS: GABAPENTIN 300 MG CAPSULE PO SCH ×2 (08:37→21:15)
[2022-08-03 08:48] LABS: BASOPHILS % (AUTO) 0.4 % (0.0-2.0); EOSINOPHILS % (AUTO) 3.2 % (1.0-6.0); HEMOGLOBIN 9.5 g/dL (12.0-16.0); LYMPHOCYTES # (AUTO) 1.3 K/uL (1.0-4.8); LYMPHOCYTES % (AUTO) 20.1 % (22.0-44.0); MEAN CORPUSCULAR HGB CONC 33.9 G/dL (31.0-37.0); MEAN CORPUSCULAR VOLUME 103 fL (80-100); MONOCYTES # (AUTO) 0.4 K/uL (0.1-1.0); NEUTROPHILS # (AUTO) 4.7 K/uL (1.8-7.7); NEUTROPHILS % (AUTO) 70.3 % (40.0-70.0); PLATELET COUNT (AUTO) 213 K/uL (150-450); RED BLOOD CELL COUNT(AUTO) 2.72 MIL/uL (4.00-5.20); RED CELL DISTRIBUTION WIDTH 12.9 % (11.5-14.5)
[2022-08-03] MEDS: PRIMIDONE 250 MG TABLET PO SCH (09:21)
[2022-08-03 14:19] VITALS: BP 122/56
[2022-08-03 14:30] VITALS: BP 131/62
[2022-08-03] MEDS: ACETAMINOPHEN 325 MG TABLET PO PRN (15:49)
[2022-08-03] MEDS: ATORVASTATIN CALCIUM 40 MG TABLET PO SCH (21:15)
[2022-08-03] MEDS: QUEtiapine FUMARATE 100 MG TABLET PO SCH (21:15)
[2022-08-03] MEDS: LATANOPROST 0.005% 2.5 ML OPHTHALMIC SOLUTION OU SCH (22:45)
[2022-08-04] MEDS: HEPARIN SODIUM,PORCINE 5,000 UNITS/ML VIAL SQ SCH ×4 (00:02→23:32)
[2022-08-04] MEDS: PIPERACILLIN SODIUM/TAZOBACTAM 2.25 GM in DEXTROSE 5%-WATER 50 ML IV SCH ×4 (04:07→23:32)
[2022-08-04 07:10] LABS: BASOPHILS % (AUTO) 0.4 % (0.0-2.0); EOSINOPHILS % (AUTO) 9.9 % (1.0-6.0); HEMATOCRIT 24.5 % (36-46); HEMOGLOBIN 8.4 g/dL (12.0-16.0); LYMPHOCYTES # (AUTO) 1.5 K/uL (1.0-4.8); LYMPHOCYTES % (AUTO) 24.1 % (22.0-44.0); MEAN CORPUSCULAR HGB CONC 34.2 G/dL (31.0-37.0); MEAN CORPUSCULAR VOLUME 103 fL (80-100); MONOCYTES # (AUTO) 0.6 K/uL (0.1-1.0); MONOCYTES % (AUTO) 9.5 % (2.0-9.0); NEUTROPHILS # (AUTO) 3.5 K/uL (1.8-7.7); NEUTROPHILS % (AUTO) 56.1 % (40.0-70.0); PLATELET COUNT (AUTO) 187 K/uL (150-450); RED BLOOD CELL COUNT(AUTO) 2.39 MIL/uL (4.00-5.20); RED CELL DISTRIBUTION WIDTH 13.2 % (11.5-14.5)
[2022-08-04 07:21] LABS: ALBUMIN 2.6 g/dL (3.4-5.0); BILIRUBIN,TOTAL 0.3 mg/dL (0.1-1.0); CREATININE 2.08 mg/dL (0.60-1.30); MAGNESIUM 1.9 mg/dL (1.80-2.40); PHOSPHORUS 2.6 mg/dL (2.5-4.9); POTASSIUM 4.5 mmol/L (3.5-5.1); TOTAL PROTEIN, SERUM 6.3 g/dL (6.4-8.2)
[2022-08-04] MEDS: PRIMIDONE 250 MG TABLET PO SCH (07:58)
[2022-08-04] MEDS: FOLIC ACID 1 MG TABLET PO SCH (07:59)
[2022-08-04] MEDS: SODIUM CHLORIDE 1 GM TABLET PO SCH ×3 (07:59→22:45)
[2022-08-04] MEDS: FAMOTIDINE 20 MG TABLET PO SCH ×2 (07:59→22:45)
[2022-08-04] MEDS: GABAPENTIN 300 MG CAPSULE PO SCH ×2 (07:59→22:44)
[2022-08-04] MEDS: CLOPIDOGREL BISULFATE 75 MG TABLET PO SCH (08:01)
[2022-08-04] MEDS: SODIUM CHLORIDE 0.9% 1,000 ML IV SCH (08:07)
[2022-08-04] MEDS: ACETAMINOPHEN 325 MG TABLET PO PRN (14:15)
[2022-08-04 21:50] VITALS: BP 120/57
[2022-08-04] MEDS ORDERED: SODIUM CHLORIDE 0.9% 500 ML IV ONE (22:39)
[2022-08-04] MEDS: ATORVASTATIN CALCIUM 40 MG TABLET PO SCH (22:45)
[2022-08-04] MEDS: QUEtiapine FUMARATE 100 MG TABLET PO SCH (23:32)
[2022-08-04] MEDS: LATANOPROST 0.005% 2.5 ML OPHTHALMIC SOLUTION OU SCH (23:32)
[2022-08-05 00:40] VITALS: BP 125/61
[2022-08-05] MEDS: SODIUM CHLORIDE 0.9% 1,000 ML IV SCH (00:53)
[2022-08-05] MEDS: PIPERACILLIN SODIUM/TAZOBACTAM 2.25 GM in DEXTROSE 5%-WATER 50 ML IV SCH ×3 (03:58→15:22)
[2022-08-05 04:30] VITALS: BP 128/55
[2022-08-05 06:11] LABS: BASOPHILS % (AUTO) 0.7 % (0.0-2.0); HEMATOCRIT 23.7 % (36-46); LYMPHOCYTES # (AUTO) 2.2 K/uL (1.0-4.8); LYMPHOCYTES % (AUTO) 35.9 % (22.0-44.0); MEAN CORPUSCULAR HEMOGLOBIN 34.9 pg (26.0-34.0); MEAN CORPUSCULAR HGB CONC 33.7 G/dL (31.0-37.0); MEAN CORPUSCULAR VOLUME 103 fL (80-100); MONOCYTES # (AUTO) 0.6 K/uL (0.1-1.0); MONOCYTES % (AUTO) 9.6 % (2.0-9.0); NEUTROPHILS # (AUTO) 2.6 K/uL (1.8-7.7); NEUTROPHILS % (AUTO) 42.8 % (40.0-70.0); PLATELET COUNT (AUTO) 190 K/uL (150-450); RED CELL DISTRIBUTION WIDTH 13.4 % (11.5-14.5)
[2022-08-05 06:31] LABS: ALBUMIN 2.6 g/dL (3.4-5.0); BILIRUBIN,TOTAL 0.2 mg/dL (0.1-1.0); CALCIUM, TOTAL 9.1 mg/dL (8.8-10.5); CREATININE 1.82 mg/dL (0.60-1.30); MAGNESIUM 1.5 mg/dL (1.80-2.40); PHOSPHORUS 3.2 mg/dL (2.5-4.9); POTASSIUM 4.7 mmol/L (3.5-5.1); TOTAL PROTEIN, SERUM 6.3 g/dL (6.4-8.2)
[2022-08-05 07:38] VITALS: BP 129/64
[2022-08-05] MEDS: FAMOTIDINE 20 MG TABLET PO SCH ×2 (08:37→20:37)
[2022-08-05] MEDS: SODIUM CHLORIDE 1 GM TABLET PO SCH ×3 (08:37→20:36)
[2022-08-05] MEDS: FOLIC ACID 1 MG TABLET PO SCH (08:37)
[2022-08-05] MEDS: GABAPENTIN 300 MG CAPSULE PO SCH ×2 (08:37→20:36)
[2022-08-05] MEDS: PRIMIDONE 250 MG TABLET PO SCH (08:37)
[2022-08-05] MEDS: CLOPIDOGREL BISULFATE 75 MG TABLET PO SCH (08:37)
[2022-08-05] MEDS: HEPARIN SODIUM,PORCINE 5,000 UNITS/ML VIAL SQ SCH ×3 (08:38→23:21)
[2022-08-05 11:09] VITALS: BP 122/60
[2022-08-05] MEDS ORDERED: MAGNESIUM SULFATE 2 GM/WATER 50 ML IV ONE (11:45)
[2022-08-05] MEDS ORDERED: MAGNESIUM SULFATE 1 GM in DEXTROSE 5%-WATER 50 ML IV ONE (17:45)
[2022-08-05 20:00] VITALS: BP 103/39
[2022-08-05] MEDS: ATORVASTATIN CALCIUM 40 MG TABLET PO SCH (20:37)
[2022-08-05] MEDS: ZOLPIDEM TARTRATE 5 MG TABLET PO PRN (20:38)
[2022-08-05] MEDS ORDERED: *CLINICAL-MEROPENEM DOSING CLINICAL ONE (21:15)
[2022-08-05] MEDS ORDERED: SODIUM CHLORIDE 0.9% 500 ML IV ONE (21:15)
[2022-08-05] MEDS: QUEtiapine FUMARATE 100 MG TABLET PO SCH (21:28)
[2022-08-05] MEDS: LATANOPROST 0.005% 2.5 ML OPHTHALMIC SOLUTION OU SCH (21:29)
[2022-08-05] MEDS: MEROPENEM 1 GM in SODIUM CHLORIDE 0.9% 100 ML IV SCH (23:22)
[2022-08-06] VITALS: BP 90/41
[2022-08-06] MEDS ORDERED: SODIUM CHLORIDE 0.9% 500 ML IV ONE (01:30)
[2022-08-06 04:00] VITALS: BP 115/62
[2022-08-06 06:02] LABS: BASOPHILS % (AUTO) 0.8 % (0.0-2.0); EOSINOPHILS % (AUTO) 11.2 % (1.0-6.0); HEMATOCRIT 24.2 % (36-46); HEMOGLOBIN 8.1 g/dL (12.0-16.0); LYMPHOCYTES # (AUTO) 2.2 K/uL (1.0-4.8); LYMPHOCYTES % (AUTO) 37.6 % (22.0-44.0); MEAN CORPUSCULAR HEMOGLOBIN 35.4 pg (26.0-34.0); MEAN CORPUSCULAR HGB CONC 33.7 G/dL (31.0-37.0); MEAN CORPUSCULAR VOLUME 105 fL (80-100); MONOCYTES # (AUTO) 0.6 K/uL (0.1-1.0); MONOCYTES % (AUTO) 10.4 % (2.0-9.0); NEUTROPHILS # (AUTO) 2.3 K/uL (1.8-7.7); PLATELET COUNT (AUTO) 189 K/uL (150-450); RED CELL DISTRIBUTION WIDTH 13.4 % (11.5-14.5)
[2022-08-06 06:39] LABS: ALBUMIN 2.6 g/dL (3.4-5.0); BILIRUBIN,TOTAL 0.1 mg/dL (0.1-1.0); CALCIUM, TOTAL 9.1 mg/dL (8.8-10.5); CREATININE 1.85 mg/dL (0.60-1.30); MAGNESIUM 1.8 mg/dL (1.80-2.40); PHOSPHORUS 3.8 mg/dL (2.5-4.9); POTASSIUM 5.3 mmol/L (3.5-5.1); TOTAL PROTEIN, SERUM 6.1 g/dL (6.4-8.2)
[2022-08-06 07:39] VITALS: BP 120/50
[2022-08-06] MEDS: PRIMIDONE 250 MG TABLET PO SCH (08:33)
[2022-08-06] MEDS: SODIUM CHLORIDE 1 GM TABLET PO SCH ×3 (08:33→21:21)
[2022-08-06] MEDS: CLOPIDOGREL BISULFATE 75 MG TABLET PO SCH (08:33)
[2022-08-06] MEDS: HEPARIN SODIUM,PORCINE 5,000 UNITS/ML VIAL SQ SCH ×3 (08:33→23:55)
[2022-08-06] MEDS: FAMOTIDINE 20 MG TABLET PO SCH ×2 (08:33→21:21)
[2022-08-06] MEDS: FOLIC ACID 1 MG TABLET PO SCH (08:33)
[2022-08-06] MEDS: GABAPENTIN 300 MG CAPSULE PO SCH ×2 (08:33→21:21)
[2022-08-06] MEDS: MEROPENEM 1 GM in SODIUM CHLORIDE 0.9% 100 ML IV SCH ×2 (10:25→22:50)
[2022-08-06 11:28] VITALS: BP 122/65
[2022-08-06] MEDS ORDERED: SODIUM ZIRCONIUM CYCLOSILICATE 5 GM POWDER PACKET PO ONE (13:45)
[2022-08-06] MEDS: ACETAMINOPHEN 325 MG TABLET PO PRN (15:48)
[2022-08-06 16:04] VITALS: BP 119/74
[2022-08-06 20:27] VITALS: BP 113/52
[2022-08-06] MEDS: QUEtiapine FUMARATE 100 MG TABLET PO SCH (21:21)
[2022-08-06] MEDS: ZOLPIDEM TARTRATE 5 MG TABLET PO PRN (21:21)
[2022-08-06] MEDS: ATORVASTATIN CALCIUM 40 MG TABLET PO SCH (21:22)
[2022-08-06] MEDS: LATANOPROST 0.005% 2.5 ML OPHTHALMIC SOLUTION OU SCH (21:22)
[2022-08-07 00:17] VITALS: BP 97/48
[2022-08-07 05:10] VITALS: BP 123/62
[2022-08-07 06:25] LABS: BASOPHILS % (AUTO) 1.2 % (0.0-2.0); EOSINOPHILS % (AUTO) 10.2 % (1.0-6.0); HEMATOCRIT 25.9 % (36-46); HEMOGLOBIN 8.5 g/dL (12.0-16.0); LYMPHOCYTES # (AUTO) 2.5 K/uL (1.0-4.8); LYMPHOCYTES % (AUTO) 37.2 % (22.0-44.0); MEAN CORPUSCULAR HEMOGLOBIN 34.8 pg (26.0-34.0); MEAN CORPUSCULAR HGB CONC 32.8 G/dL (31.0-37.0); MEAN CORPUSCULAR VOLUME 106 fL (80-100); MONOCYTES # (AUTO) 0.7 K/uL (0.1-1.0); MONOCYTES % (AUTO) 10.1 % (2.0-9.0); NEUTROPHILS # (AUTO) 2.8 K/uL (1.8-7.7); NEUTROPHILS % (AUTO) 41.3 % (40.0-70.0); PLATELET COUNT (AUTO) 179 K/uL (150-450); RED BLOOD CELL COUNT(AUTO) 2.44 MIL/uL (4.00-5.20); RED CELL DISTRIBUTION WIDTH 13.8 % (11.5-14.5)
[2022-08-07 06:27] LABS: ALBUMIN 2.6 g/dL (3.4-5.0); BILIRUBIN,TOTAL 0.1 mg/dL (0.1-1.0); CALCIUM, TOTAL 9.1 mg/dL (8.8-10.5); CREATININE 1.61 mg/dL (0.60-1.30); TOTAL PROTEIN, SERUM 6.4 g/dL (6.4-8.2)
[2022-08-07 07:45] VITALS: BP 136/66
[2022-08-07] MEDS: FAMOTIDINE 20 MG TABLET PO SCH (08:20)
[2022-08-07] MEDS: FOLIC ACID 1 MG TABLET PO SCH (08:20)
[2022-08-07] MEDS: GABAPENTIN 300 MG CAPSULE PO SCH (08:21)
[2022-08-07] MEDS: CLOPIDOGREL BISULFATE 75 MG TABLET PO SCH (08:21)
[2022-08-07] MEDS: PRIMIDONE 250 MG TABLET PO SCH (08:21)
[2022-08-07] MEDS: HEPARIN SODIUM,PORCINE 5,000 UNITS/ML VIAL SQ SCH (08:21)
[2022-08-07] MEDS: SODIUM CHLORIDE 1 GM TABLET PO SCH (08:21)
[2022-08-07] MEDS ORDERED: SODIUM CHLORIDE 0.9% 100 ML ONE (08:38)
[2022-08-07 11:25] VITALS: BP 132/79
[2022-08-07] MEDS: MEROPENEM 1 GM in SODIUM CHLORIDE 0.9% 100 ML IV SCH (12:11)
[2022-08-07 13:29] LABS: COVID AG,FIA SOURCE NASOPHARYNGEAL
[2022-08-07 15:29] VITALS: BP 138/54
[2022-08-07] MEDS: ACETAMINOPHEN 325 MG TABLET PO PRN (16:04)
[2022-08-07] MEDS ORDERED: NACL1 PO (17:40)
[2022-08-07] MEDS ORDERED: ACET-2247 PO (17:41)
[2022-08-07] MEDS ORDERED: BISA10SU11 PR (17:41)
[2022-08-07] MEDS ORDERED: FOLI-130 PO (17:43)
[2022-08-07] MEDS ORDERED: MERO1PIG IVPB (17:44)
[2022-08-07] MEDS ORDERED: SODIUM CHLORIDE 1 GM TABLET PO SCH (21:00)
== END 2022-08-07 16:10 | DRG 643 ==
LOC: EMS 13:14 → AHU 18:33 → 5S 08-04 19:44
PROVIDERS: ADMIT Hospitalist; ATTEND Hospitalist
DX: E22.2 Syndrome of inappropriate secretion of antidiuretic hormone (principal); G92.8 Other toxic encephalopathy; N17.9 Acute kidney failure, unspecified; N39.0 Urinary tract infection, site not specified; Z16.24 Resistance to multiple antibiotics; E44.0 Moderate protein-calorie malnutrition; I12.9 Hypertensive chronic kidney disease with stage 1 through stage 4 chronic kidney disease, or unspecified chronic kidney disease; N18.9 Chronic kidney disease, unspecified; F32.A Depression, unspecified; B96.20 Unspecified Escherichia coli [E. coli] as the cause of diseases classified elsewhere; F41.9 Anxiety disorder, unspecified; E87.5 Hyperkalemia; D64.9 Anemia, unspecified; I25.10 Atherosclerotic heart disease of native coronary artery without angina pectoris; J44.9 Chronic obstructive pulmonary disease, unspecified; K21.9 Gastro-esophageal reflux disease without esophagitis; I95.9 Hypotension, unspecified; Z20.822 Contact with and (suspected) exposure to COVID-19; R09.89 Other specified symptoms and signs involving the circulatory and respiratory systems; E86.1 Hypovolemia; I34.0 Nonrheumatic mitral (valve) insufficiency; E66.9 Obesity, unspecified; E78.5 Hyperlipidemia, unspecified; R77.8 Other specified abnormalities of plasma proteins; Z82.49 Family history of ischemic heart disease and other diseases of the circulatory system; Z88.6 Allergy status to analgesic agent; Z88.5 Allergy status to narcotic agent; Z79.899 Other long term (current) drug therapy; Z79.02 Long term (current) use of antithrombotics/antiplatelets; Z90.5 Acquired absence of kidney; Z68.38 Body mass index [BMI] 38.0-38.9, adult
CPT/HCPCS: 70450; 71045; 76770; 80048; 80053; 81001; 82533; 82550; 82570; 82962; 83605; 83735; 83880; 83935; 84100; 84132; 84145; 84295; 84300; 84443; 84484; 84540; 85025; 85610; 85730; 87086; 87186; 93005; 93306; 97116; 97162; 97530; 99291; G0378; J1265; J1644; J2185; J2370; J2543; J3475; J7030; J7040; J7050; J7060; P9041; Q9967; 36415-L1; 36415-TC

== ENCOUNTER 2022-09-03 06:43 | Emergency (ER) | payer MEDICARE, OTHER ==
[~2022-09-03] VITALS: Ht 167.6 cm; Wt 102.7 kg
[~2022-09-03 06:43] MED LIST changes: +ACET-2247 PO; -AMOX1TAB15 PO; -AMOX1TAB16 PO; +BISA10SU11 PR; -BUSP15 PO; -CEPH-558 PO; -DOCU-385 PO; -DULO-113 PO; -FAMO1TAB PO; -FERR325T27 PO; +FOLI-130 PO; -FOLI0.4T6 PO; -HYDR25TA84 PO; -IPRA3AMP23 NEB; -LACT10SO10 PO; -MECL-160 PO; +MERO1PIG IVPB; -MULT-14 PO; +NACL1 PO; -PANT-31 PO
[2022-09-03] MEDS ORDERED: CLOT15CR29 TP (07:19)
[2022-09-03 07:43] LABS: APPEARANCE,URINE HAZY (CLEAR); BILIRUBIN,URINE NEGATIVE (NEGATIVE); GLUCOSE, URINE (UA) NEGATIVE (NEGATIVE); KETONES,URINE NEGATIVE (NEGATIVE); LEUKOCYTE ESTERASE ,URINE MODERATE (NEGATIVE); NITRATE,URINE NEGATIVE (NEGATIVE); OCCULT BLOOD,URINE TRACE (NEGATIVE); PH,URINE 5.5 (5.0-8.0); PROTEIN,URINE TRACE mg/dL (NEGATIVE); SPECIFIC GRAVITIY, URINE 1.006 (1.003-1.030); UROBILINOGEN,URINE <=1.0 mg/dL (<=1.0)
[2022-09-03 08:08] LABS: BACTERIA,URINE Few /HPF (None Seen); SQUAMOUS EPITHELIAL CELL,UR Few /LPF (None Seen); WBC,URINE 26-50 /HPF (0-5)
[2022-09-03] MEDS ORDERED: NITR-75 PO (08:12)
[2022-09-03] MEDS ORDERED: PHEN-846 PO (08:12)
[2022-09-03 09:54] VITALS: BP 141/87
== END 2022-09-03 10:21 | disposition home or self-care (01) ==
LOC: EMS 06:43
DX: B35.4 Tinea corporis (principal); F41.9 Anxiety disorder, unspecified; F32.A Depression, unspecified; I10 Essential (primary) hypertension; Z87.440 Personal history of urinary (tract) infections; Z88.5 Allergy status to narcotic agent; Z88.6 Allergy status to analgesic agent
CPT/HCPCS: 81001; 87086; 87186; 99283

== ENCOUNTER 2022-09-17 23:58 | Emergency (ER) | payer MEDICARE, OTHER ==
[~2022-09-17] VITALS: Ht 157.5 cm; Wt 103.0 kg
[~2022-09-17 23:58] MED LIST changes: +CLOT15CR29 TP; +NITR-75 PO; +PHEN-846 PO
[2022-09-18 00:52] LABS: BASOPHILS % (AUTO) 0.8 % (0.0-2.0); EOSINOPHILS % (AUTO) 7.1 % (1.0-6.0); LYMPHOCYTES # (AUTO) 2.6 K/uL (1.0-4.8); LYMPHOCYTES % (AUTO) 44.1 % (22.0-44.0); MEAN CORPUSCULAR HEMOGLOBIN 34.5 pg (26.0-34.0); MEAN CORPUSCULAR HGB CONC 33.1 G/dL (31.0-37.0); MEAN CORPUSCULAR VOLUME 104 fL (80-100); MONOCYTES # (AUTO) 0.5 K/uL (0.1-1.0); NEUTROPHILS # (AUTO) 2.3 K/uL (1.8-7.7); PLATELET COUNT (AUTO) 229 K/uL (150-450); RED BLOOD CELL COUNT(AUTO) 2.59 MIL/uL (4.00-5.20); RED CELL DISTRIBUTION WIDTH 14.6 % (11.5-14.5)
[2022-09-18 01:16] LABS: CALCIUM, TOTAL 9.5 mg/dL (8.8-10.5); CREATININE 1.96 mg/dL (0.60-1.30); POTASSIUM 4.1 mmol/L (3.5-5.1)
[2022-09-18 01:30] LABS: ALBUMIN 3.3 g/dL (3.4-5.0); BILIRUBIN,TOTAL 0.1 mg/dL (0.1-1.0); THYROID STIMULATING HORMONE 0.72 uIU/mL (0.36-3.74)
[2022-09-18 01:43] LABS: URIC ACID 4.8 mg/dL (2.6-7.2)
[2022-09-18 02:15] LABS: APPEARANCE,URINE CLEAR (CLEAR); BILIRUBIN,URINE NEGATIVE (NEGATIVE); GLUCOSE, URINE (UA) NEGATIVE (NEGATIVE); KETONES,URINE NEGATIVE (NEGATIVE); LEUKOCYTE ESTERASE ,URINE MODERATE (NEGATIVE); NITRATE,URINE NEGATIVE (NEGATIVE); OCCULT BLOOD,URINE NEGATIVE (NEGATIVE); PROTEIN,URINE NEGATIVE (NEGATIVE); SPECIFIC GRAVITIY, URINE 1.005 (1.003-1.030); UROBILINOGEN,URINE <=1.0 mg/dL (<=1.0)
[2022-09-18 02:22] LABS: CREATININE,URINE RANDOM 22.5 mg/dL (30.0-125.0); UREA NITROGEN,URINE RANDOM 163 mg/dL (350-1000)
[2022-09-18] MEDS ORDERED: MAG HYDROX/AL HYDROX/SIMETH ES 30 ML SUSPENSION UDCUP PO ONE (02:30)
[2022-09-18] MEDS ORDERED: FAMOTIDINE 20 MG TABLET PO ONE (02:30)
[2022-09-18 02:38] LABS: BACTERIA,URINE None Seen /HPF (None Seen); RBC,URINE None Seen /HPF (0-2); SQUAMOUS EPITHELIAL CELL,UR Few /LPF (None Seen)
[2022-09-18] MEDS ORDERED: SODIUM CHLORIDE 0.9% 500 ML IV ONE (02:45)
[2022-09-18] MEDS ORDERED: IOHEXOL 350 MG/ML 100 ML VIAL ONE (04:04)
[2022-09-18 08:30] VITALS: BP 150/78
== END 2022-09-18 08:52 | disposition home or self-care (01) ==
LOC: EMS 23:59
DX: R10.9 Unspecified abdominal pain (principal); D53.9 Nutritional anemia, unspecified; K46.9 Unspecified abdominal hernia without obstruction or gangrene; F41.9 Anxiety disorder, unspecified; F32.A Depression, unspecified; I10 Essential (primary) hypertension; Z98.890 Other specified postprocedural states; Z88.6 Allergy status to analgesic agent; Z88.5 Allergy status to narcotic agent
CPT/HCPCS: 99285; 80053; 83930; 81001; 82570; 84443; 84484; 84540; 84550; 84560; 85025; 36415; 83935; 74177; 93005; Q9967; J7040

== ENCOUNTER 2022-11-29 03:14 | Emergency (ER) | payer MEDICARE, OTHER ==
[~2022-11-29] VITALS: Ht 167.6 cm; Wt 103.6 kg
[2022-11-29 04:06] LABS: APPEARANCE,URINE CLEAR (CLEAR); BILIRUBIN,URINE NEGATIVE (NEGATIVE); GLUCOSE, URINE (UA) NEGATIVE (NEGATIVE); KETONES,URINE NEGATIVE (NEGATIVE); LEUKOCYTE ESTERASE ,URINE LARGE (NEGATIVE); NITRATE,URINE POSITIVE (NEGATIVE); OCCULT BLOOD,URINE NEGATIVE (NEGATIVE); PROTEIN,URINE NEGATIVE (NEGATIVE); SPECIFIC GRAVITIY, URINE 1.009 (1.003-1.030); UROBILINOGEN,URINE <=1.0 mg/dL (<=1.0)
[2022-11-29 04:22] LABS: BACTERIA,URINE Moderate /HPF (None Seen); RBC,URINE None Seen /HPF (0-2); SQUAMOUS EPITHELIAL CELL,UR None Seen /LPF (None Seen)
[2022-11-29] MEDS ORDERED: CefTRIAXone SODIUM 1 GM/VIAL IM ONE (04:30)
[2022-11-29] MEDS ORDERED: LIDOCAINE/PF 1% 2 ML VIAL IM ONE (04:30)
[2022-11-29 04:54] VITALS: BP 120/60
== END 2022-11-29 06:21 | disposition home or self-care (01) ==
LOC: EMS 03:17
DX: N39.0 Urinary tract infection, site not specified (principal); F41.9 Anxiety disorder, unspecified; M19.90 Unspecified osteoarthritis, unspecified site; J44.9 Chronic obstructive pulmonary disease, unspecified; F32.A Depression, unspecified; E78.00 Pure hypercholesterolemia, unspecified; I11.0 Hypertensive heart disease with heart failure; I50.9 Heart failure, unspecified; E05.90 Thyrotoxicosis, unspecified without thyrotoxic crisis or storm; Z98.890 Other specified postprocedural states; Z88.6 Allergy status to analgesic agent; Z88.5 Allergy status to narcotic agent
CPT/HCPCS: 99283; 81001; 87086; 87186; 96372; J0696; J3490

== ENCOUNTER 2023-03-08 23:28 | Inpatient (IN) | payer MEDICARE, OTHER ==
[~2023-03-08] VITALS: Ht 167.6 cm; Wt 98.6 kg
[~2023-03-08 23:28] MED LIST changes: -ACET-2247 PO; +ACET-66 PO; +ALBU18HF12 IH; -ALBU8.5H8 IH; +BUSP10TA23 PO; +CLOP75TA32 PO; -CLOP75TA60 PO; -CLOT15CR29 TP; +FAMO20 PO; +FERR325T23 PO; +GABA-1181 PO; +ICOS1CAP PO; -LACT1.5C PO; +LACT1CAP70 PO; +LISI20TA24 PO; -MERO1PIG IVPB; -NACL1 PO; -NITR-75 PO; -OLOP2.5D16 OU; +PANT40TA54 PO; -PHEN-846 PO; +SENN-376 PO; +TRAM-559 PO; +[UNRECOGNIZED DRUG - CODE] PO
[2023-03-09 00:50] LABS: BASOPHILS % (AUTO) 0.4 % (0.0-2.0); HEMOGLOBIN 8.7 g/dL (12.0-16.0); LYMPHOCYTES % (AUTO) 48.6 % (22.0-44.0); MEAN CORPUSCULAR HEMOGLOBIN 34.9 pg (26.0-34.0); MEAN CORPUSCULAR HGB CONC 33.5 G/dL (31.0-37.0); MEAN CORPUSCULAR VOLUME 104 fL (80-100); MONOCYTES # (AUTO) 0.4 K/uL (0.1-1.0); MONOCYTES % (AUTO) 7.2 % (2.0-9.0); NEUTROPHILS # (AUTO) 2.4 K/uL (1.8-7.7); NEUTROPHILS % (AUTO) 38.8 % (40.0-70.0); PLATELET COUNT (AUTO) 172 K/uL (150-450); RED CELL DISTRIBUTION WIDTH 13.9 % (11.5-14.5); WHITE BLOOD COUNT (AUTO) 6.1 K/uL (4.5-11.0)
[2023-03-09 00:55] LABS: APPEARANCE,URINE CLEAR (CLEAR); BILIRUBIN,URINE NEGATIVE (NEGATIVE); COLOR,URINE COLORLESS (YELLOW); GLUCOSE, URINE (UA) NEGATIVE (NEGATIVE); KETONES,URINE NEGATIVE (NEGATIVE); LEUKOCYTE ESTERASE ,URINE MODERATE (NEGATIVE); NITRATE,URINE POSITIVE (NEGATIVE); OCCULT BLOOD,URINE NEGATIVE (NEGATIVE); PROTEIN,URINE NEGATIVE (NEGATIVE); SPECIFIC GRAVITIY, URINE 1.005 (1.003-1.030); UROBILINOGEN,URINE <=1.0 mg/dL (<=1.0)
[2023-03-09 00:59] LABS: CALCIUM, TOTAL 8.7 mg/dL (8.8-10.5); CREATININE 1.67 mg/dL (0.60-1.30); POTASSIUM 4.3 mmol/L (3.5-5.1)
[2023-03-09 01:14] LABS: BACTERIA,URINE Few /HPF (None Seen); RBC,URINE None Seen /HPF (0-2); SQUAMOUS EPITHELIAL CELL,UR None Seen /LPF (None Seen)
[2023-03-09] MEDS ORDERED: CefTRIAXone 1 GM/DEXTROSE 50 ML IV ONE (01:30)
[2023-03-09] MEDS ORDERED: ACETAMINOPHEN 325 MG TABLET PO PRN ×2 (01:45)
[2023-03-09] MEDS ORDERED: ONDANSETRON HCL 4 MG/2 ML VIAL IVP PRN ×2 (01:45)
[2023-03-09 01:56] LABS: CREATININE,URINE RANDOM 18.1 mg/dL (30.0-125.0)
[2023-03-09 02:58] LABS: THYROID STIMULATING HORMONE 0.54 uIU/mL (0.36-3.74)
[2023-03-09 07:06] LABS: BASOPHILS % (AUTO) 0.4 % (0.0-2.0); EOSINOPHILS % (AUTO) 6.9 % (1.0-6.0); HEMATOCRIT 25.4 % (36-46); HEMOGLOBIN 8.4 g/dL (12.0-16.0); LYMPHOCYTES % (AUTO) 54.1 % (22.0-44.0); MEAN CORPUSCULAR HEMOGLOBIN 34.3 pg (26.0-34.0); MEAN CORPUSCULAR VOLUME 104 fL (80-100); MONOCYTES # (AUTO) 0.5 K/uL (0.1-1.0); MONOCYTES % (AUTO) 8.6 % (2.0-9.0); NEUTROPHILS # (AUTO) 1.7 K/uL (1.8-7.7); PLATELET COUNT (AUTO) 167 K/uL (150-450); RED BLOOD CELL COUNT(AUTO) 2.44 MIL/uL (4.00-5.20); RED CELL DISTRIBUTION WIDTH 13.9 % (11.5-14.5); WHITE BLOOD COUNT (AUTO) 5.5 K/uL (4.5-11.0)
[2023-03-09 07:16] LABS: CALCIUM, TOTAL 8.6 mg/dL (8.8-10.5); CREATININE 1.58 mg/dL (0.60-1.30); MAGNESIUM 2.5 mg/dL (1.80-2.40); POTASSIUM 4.2 mmol/L (3.5-5.1)
[2023-03-09 08:23] LABS: RBC MORPHOLOGY COMMENT ABNORMAL RBC MORPH
[2023-03-09] MEDS: HEPARIN SODIUM,PORCINE 5,000 UNITS/ML VIAL SQ SCH ×3 (08:36→23:26)
[2023-03-09] MEDS: DOCUSATE SODIUM 100 MG CAPSULE PO SCH ×2 (08:36→20:42)
[2023-03-09] MEDS: FERROUS SULFATE 325 MG EC TABLET PO SCH (16:16)
[2023-03-09] MEDS: GABAPENTIN 300 MG CAPSULE PO SCH (20:47)
[2023-03-09] MEDS: SODIUM CHLORIDE 1 GM TABLET PO SCH (20:47)
[2023-03-09 22:37] VITALS: BP 121/69; PULSE 77; RESP 18; TEMP 98.3
[2023-03-10] MEDS ORDERED: MELATONIN 3 MG TABLET PO PRN (01:15)
[2023-03-10 03:23] VITALS: BP 101/59; PULSE 84; RESP 18; TEMP 98.3
[2023-03-10] MEDS ORDERED: SODIUM CHLORIDE 0.9% 1,000 ML ONE (04:31)
[2023-03-10] MEDS: CefTRIAXone 1 GM/DEXTROSE 50 ML IV SCH ×2 (04:33→06:37)
[2023-03-10 06:55] LABS: BASOPHILS % (AUTO) 0.6 % (0.0-2.0); EOSINOPHILS % (AUTO) 2.2 % (1.0-6.0); HEMATOCRIT 29.7 % (36-46); LYMPHOCYTES # (AUTO) 2.4 K/uL (1.0-4.8); LYMPHOCYTES % (AUTO) 39.5 % (22.0-44.0); MEAN CORPUSCULAR HGB CONC 33.8 G/dL (31.0-37.0); MEAN CORPUSCULAR VOLUME 104 fL (80-100); MONOCYTES # (AUTO) 0.5 K/uL (0.1-1.0); MONOCYTES % (AUTO) 7.9 % (2.0-9.0); NEUTROPHILS % (AUTO) 49.8 % (40.0-70.0); PLATELET COUNT (AUTO) 202 K/uL (150-450); RED BLOOD CELL COUNT(AUTO) 2.87 MIL/uL (4.00-5.20); RED CELL DISTRIBUTION WIDTH 13.7 % (11.5-14.5)
[2023-03-10 07:07] LABS: CALCIUM, TOTAL 9.5 mg/dL (8.8-10.5); CREATININE 1.49 mg/dL (0.60-1.30); MAGNESIUM 2.6 mg/dL (1.80-2.40)
[2023-03-10 07:22] VITALS: BP 144/63; PULSE 87; RESP 18; TEMP 98
[2023-03-10 07:32] LABS: RBC MORPHOLOGY COMMENT ABNORMAL RBC MORPH
[2023-03-10] MEDS: CLOPIDOGREL BISULFATE 75 MG TABLET PO SCH (08:08)
[2023-03-10] MEDS: HEPARIN SODIUM,PORCINE 5,000 UNITS/ML VIAL SQ SCH ×3 (08:09→23:15)
[2023-03-10] MEDS: SODIUM CHLORIDE 1 GM TABLET PO SCH ×2 (08:09→20:36)
[2023-03-10] MEDS: GABAPENTIN 300 MG CAPSULE PO SCH ×2 (08:09→20:36)
[2023-03-10] MEDS: BusPIRone HCL 10 MG TABLET PO SCH ×3 (08:09→23:15)
[2023-03-10] MEDS: FERROUS SULFATE 325 MG EC TABLET PO SCH ×2 (08:10→18:19)
[2023-03-10] MEDS: DOCUSATE SODIUM 100 MG CAPSULE PO SCH ×2 (08:10→20:35)
[2023-03-10] MEDS: ATORVASTATIN CALCIUM 40 MG TABLET PO SCH (09:00)
[2023-03-10 11:42] VITALS: BP 101/76; PULSE 76; RESP 18; TEMP 97.4
[2023-03-10 15:48] VITALS: BP 108/70; PULSE 82; RESP 18; TEMP 98
[2023-03-10] MEDS ORDERED: EPOETIN ALFA 10,000 UNITS/ML VIAL SQ ONE (18:30)
[2023-03-10 19:37] VITALS: BP 118/49; PULSE 86; RESP 18; TEMP 98.8
[2023-03-11 00:26] VITALS: BP 100/52; PULSE 66; RESP 18; TEMP 98.4
[2023-03-11] MEDS: CefTRIAXone 1 GM/DEXTROSE 50 ML IV SCH (01:45)
[2023-03-11 05:06] VITALS: BP 101/53; PULSE 71; RESP 18; TEMP 97.8
[2023-03-11 07:32] VITALS: BP 99/55; PULSE 68; RESP 18; TEMP 98.3
[2023-03-11] MEDS: DOCUSATE SODIUM 100 MG CAPSULE PO SCH (08:32)
[2023-03-11] MEDS: ATORVASTATIN CALCIUM 40 MG TABLET PO SCH (08:32)
[2023-03-11] MEDS: FERROUS SULFATE 325 MG EC TABLET PO SCH (08:32)
[2023-03-11] MEDS: BusPIRone HCL 10 MG TABLET PO SCH (08:32)
[2023-03-11] MEDS: CLOPIDOGREL BISULFATE 75 MG TABLET PO SCH (08:32)
[2023-03-11] MEDS: SODIUM CHLORIDE 1 GM TABLET PO SCH (08:32)
[2023-03-11] MEDS: HEPARIN SODIUM,PORCINE 5,000 UNITS/ML VIAL SQ SCH (08:33)
[2023-03-11] MEDS: GABAPENTIN 300 MG CAPSULE PO SCH (08:33)
[2023-03-11] MEDS ORDERED: [UNRECOGNIZED DRUG - CODE] PO (09:52)
[2023-03-11] MEDS ORDERED: CEPH-558 PO (09:52)
[2023-03-11] MEDS ORDERED: MIDO5TAB29 PO (09:53)
[2023-03-11 11:12] VITALS: BP 125/74; PULSE 87; RESP 1; TEMP 97.9
[2023-03-11 11:39] LABS: CALCIUM, TOTAL 9.7 mg/dL (8.8-10.5); CREATININE 1.7 mg/dL (0.60-1.30); POTASSIUM 3.9 mmol/L (3.5-5.1)
== END 2023-03-11 16:30 | disposition home or self-care (01) | DRG 690 ==
LOC: EMS 23:33 → AHU 03-09 02:00 → 5S 03-09 20:30
PROVIDERS: ADMIT Internal Medicine; ATTEND Internal Medicine
DX: N39.0 Urinary tract infection, site not specified (principal); E87.1 Hypo-osmolality and hyponatremia; N17.9 Acute kidney failure, unspecified; I13.0 Hypertensive heart and chronic kidney disease with heart failure and stage 1 through stage 4 chronic kidney disease, or unspecified chronic kidney disease; D63.8 Anemia in other chronic diseases classified elsewhere; F41.9 Anxiety disorder, unspecified; M19.90 Unspecified osteoarthritis, unspecified site; I50.9 Heart failure, unspecified; N18.30 Chronic kidney disease, stage 3 unspecified; I25.10 Atherosclerotic heart disease of native coronary artery without angina pectoris; E78.00 Pure hypercholesterolemia, unspecified; E11.22 Type 2 diabetes mellitus with diabetic chronic kidney disease; E03.9 Hypothyroidism, unspecified; J44.9 Chronic obstructive pulmonary disease, unspecified; F32.9 Major depressive disorder, single episode, unspecified; K21.9 Gastro-esophageal reflux disease without esophagitis; E66.9 Obesity, unspecified; Z68.35 Body mass index [BMI] 35.0-35.9, adult; Z88.5 Allergy status to narcotic agent; Z88.6 Allergy status to analgesic agent; Z79.899 Other long term (current) drug therapy; Z79.02 Long term (current) use of antithrombotics/antiplatelets; Z82.49 Family history of ischemic heart disease and other diseases of the circulatory system; Z86.73 Personal history of transient ischemic attack (TIA), and cerebral infarction without residual deficits; Z90.5 Acquired absence of kidney; Z90.710 Acquired absence of both cervix and uterus; Z95.5 Presence of coronary angioplasty implant and graft; Z87.442 Personal history of urinary calculi; H81.10 Benign paroxysmal vertigo, unspecified ear
CPT/HCPCS: 51702; 80048; 81001; 82570; 83735; 83930; 83935; 84300; 84443; 85025; 87040; 87086; 87186; 97163; 99291; J0696; J0885; J1644; J7030